=== PATIENT | male | born 1955 | race Caucasian/White ===

== ENCOUNTER → 2017-03-26 11:07 | Outpatient (CLI) | payer MEDICARE | END | disposition home or self-care (01) | LOC: D.CT 11:00 | DX: I10 Essential (primary) hypertension (principal); G40.101 Localization-related (focal) (partial) symptomatic epilepsy and epileptic syndromes with simple partial seizures, not intractable, with status epilepticus; F32.9 Major depressive disorder, single episode, unspecified; F10.10 Alcohol abuse, uncomplicated ==

== ENCOUNTER 2017-06-27 15:05 | Emergency (ER) | payer MEDICARE ==
[2017-06-27 15:28] LABS: APPEARANCE HAZY (CLEAR); COLOR STRAW (YELLOW)
[2017-06-27 15:29] LABS: BILIRUBIN NEGATIVE (NEGATIVE); GLUCOSE 50 mg/dL (NEGATIVE); KETONE NEGATIVE (NEGATIVE); NITRITE NEGATIVE (NEGATIVE); PROTEIN 1+ mg/dL (NEGATIVE); SPECIFIC GRAVITY 1.005 (1.005-1.020); UROBILINOGEN NORMAL (NORMAL)
[2017-06-27 15:31] LABS: BACTERIA FEW /hpf (NONE SEEN); RED CELLS - URINE 0-5 /hpf (0-5); WHITE CELLS - URINE 0-5 /hpf (0-5)
[2017-06-27 15:35] LABS: BASOPHILS 0.1 % (0-2); EOSINOPHILS 0.4 % (0-7); HEMATOCRIT 42.4 % (42.0-54.0); HEMOGLOBIN 14.9 g/dL (13.5-17.5); IMMATURE GRANULOCYTES 0.4 % (0-5); LYMPHOCYTES 15.1 % (15-50); MCH 33.9 pg (26.0-34.0); MCHC 35.1 g/dL (31.0-37.0); MCV 96.4 fL (80.0-100.0); MEAN PLATELET VOLUME 11.2 fL (7.4-10.4); MONOCYTES 6.3 % (2-11); NEUTROPHILS 77.7 % (40-80); PLATELET COUNT 123 10x3/uL (130-400); RDW 13.5 % (11.5-14.5); WBC 10.9 10x3/uL (4.8-10.8)
[2017-06-27 16:00] LABS: ALBUMIN 4.5 g/dL (3.4-5.0); ANION GAP 18.9 mmol/L (8-16); BILIRUBIN - TOTAL 0.62 mg/dL (0.2-1.3); CALCIUM 9.6 mg/dL (8.5-10.1); CARBON DIOXIDE 25.4 mmol/L (21.0-32.0); CREATININE - SERUM 1.3 mg/dL (0.6-1.3); POTASSIUM - SERUM 3.3 mmol/L (3.5-5.1); PROTEIN - SERUM 8.8 g/dL (6.4-8.2)
== END 2017-06-27 18:07 | disposition home or self-care (01) ==
LOC: D.ER 15:05
PROVIDERS: Emergency Medicine
DX: R10.13 Epigastric pain (principal); R11.10 Vomiting, unspecified; I10 Essential (primary) hypertension; G40.909 Epilepsy, unspecified, not intractable, without status epilepticus

== ENCOUNTER 2017-11-19 12:35 | Observation (INO) | payer MEDICARE ==
[~2017-11-19] VITALS: Ht 170.2 cm; Wt 72.6 kg
[2017-11-19] MEDS ORDERED: PRILOSEC2.5 MG PO (12:47)
[2017-11-19] MEDS ORDERED: KEPPRA500 MG PO (12:47)
[2017-11-19] MEDS ORDERED: NORVASC10 MG PO (12:48)
[2017-11-19 13:42] LABS: BASOPHILS 0.2 % (0-2); EOSINOPHILS 0.9 % (0-7); HEMATOCRIT 38.2 % (42.0-54.0); HEMOGLOBIN 13.6 g/dL (13.5-17.5); IMMATURE GRANULOCYTES 0.4 % (0-5); LYMPHOCYTES 10.8 % (15-50); MCH 32.3 pg (26.0-34.0); MCHC 35.6 g/dL (31.0-37.0); MCV 90.7 fL (80.0-100.0); MEAN PLATELET VOLUME 11.1 fL (7.4-10.4); MONOCYTES 7.2 % (2-11); NEUTROPHILS 80.5 % (40-80); PLATELET COUNT 111 10x3/uL (130-400); RBC 4.21 10x6/uL (4.20-6.10); RDW 14.2 % (11.5-14.5); WBC 8.5 10x3/uL (4.8-10.8)
[2017-11-19 14:43] LABS: ALBUMIN 4.1 g/dL (3.4-5.0); ALKALINE PHOSPHATASE 118 U/L (46-116); ALT (SGPT) 45 U/L (10-68); AMYLASE - SERUM 76 U/L (25-115); BILIRUBIN - TOTAL 0.56 mg/dL (0.2-1.3); C-REACTIVE PROTEIN 0.7 mg/dL (0.0-0.9); CALC OSMOLALITY 284 mosm/kg (275-300); CALCIUM 8.9 mg/dL (8.5-10.1); CARBON DIOXIDE 20.5 mmol/L (21.0-32.0); CHLORIDE - SERUM 105 mmol/L (98-107); CKMB 1.5 U/L (0.0-3.6); CREATINE KINASE 139 UL (21-232); CREATININE - SERUM 1.1 mg/dL (0.6-1.3); GLUCOSE 118 mg/dL (74-106); LIPASE 217 U/L (73-393); PROTEIN - SERUM 7.7 g/dL (6.4-8.2); SODIUM 142 mmol/L (136-145); UREA NITROGEN 14 mg/dL (7-18); eGFR NON AFRICAN AMERICAN 72 mL/min (90-120)
[2017-11-19 14:53] LABS: TROPONIN-I < 0.017 ng/mL (0.000-0.060)
[2017-11-19 17:11] VITALS: BP 171/072
[2017-11-19 22:28] VITALS: BP 164/96
[2017-11-19 22:35] VITALS: BP 166/98
[2017-11-20 00:49] VITALS: BP 161/91; BMI 25.1
[2017-11-20] MEDS ORDERED: PROZAC40 MG PO (01:04)
[2017-11-20 04:03] VITALS: BP 154/84
[2017-11-20 08:01] LABS: APPEARANCE CLEAR (CLEAR); BILIRUBIN NEGATIVE (NEGATIVE); COLOR STRAW (YELLOW); GLUCOSE NEGATIVE (NEGATIVE); KETONE NEGATIVE (NEGATIVE); NITRITE NEGATIVE (NEGATIVE); PROTEIN NEGATIVE (NEGATIVE); UROBILINOGEN NORMAL (NORMAL)
[2017-11-20 08:02] LABS: BACTERIA MANY /hpf (NONE SEEN); GRANULAR CAST RARE /lpf (NONE SEEN)
[2017-11-20 08:03] LABS: EPITHELIAL CELLS 0-5 /hpf (0-5); RED CELLS - URINE RARE /hpf (0-5); WHITE CELLS - URINE 0-5 /hpf (0-5)
[2017-11-20 08:33] VITALS: BP 178/86
[2017-11-20 11:00] VITALS: BMI 25.0
[2017-11-20 12:01] VITALS: BP 169/88
[2017-11-20 13:55] VITALS: Ht 170.2 cm; Wt 72.6 kg
[2017-11-20 16:08] VITALS: BP 170/95
[2017-11-20 20:00] VITALS: BP 158/98
[2017-11-21 04:00] VITALS: BP 167/63
[2017-11-21 06:51] LABS: BASOPHILS 0.2 % (0-2); EOSINOPHILS 3.1 % (0-7); HEMATOCRIT 36.3 % (42.0-54.0); HEMOGLOBIN 12.3 g/dL (13.5-17.5); IMMATURE GRANULOCYTES 0.2 % (0-5); LYMPHOCYTES 24.4 % (15-50); MCH 31.5 pg (26.0-34.0); MCHC 33.9 g/dL (31.0-37.0); MEAN PLATELET VOLUME 11.6 fL (7.4-10.4); MONOCYTES 10.6 % (2-11); NEUTROPHILS 61.5 % (40-80); PLATELET COUNT 103 10x3/uL (130-400); RDW 14.4 % (11.5-14.5)
[2017-11-21 06:57] LABS: MCV 93.1 fL (80.0-100.0); WBC 6.2 10x3/uL (4.8-10.8)
[2017-11-21 07:04] LABS: CALC OSMOLALITY 284 mosm/kg (275-300); CALCIUM 8.3 mg/dL (8.5-10.1); CARBON DIOXIDE 22.8 mmol/L (21.0-32.0); CHLORIDE - SERUM 110 mmol/L (98-107); GLUCOSE 86 mg/dL (74-106); POTASSIUM - SERUM 3.2 mmol/L (3.5-5.1); SODIUM 144 mmol/L (136-145); eGFR NON AFRICAN AMERICAN 80 mL/min (90-120)
[2017-11-21 07:05] LABS: UREA NITROGEN 9 mg/dL (7-18)
[2017-11-21 08:37] VITALS: BP 171/88
[2017-11-21 12:02] VITALS: BP 158/85
[2017-11-21 16:25] VITALS: BP 175/89
[2017-11-21 20:00] VITALS: BP 151/87
[2017-11-22] VITALS: BP 149/94
[2017-11-22 04:00] VITALS: BP 166/98
[2017-11-22 06:38] LABS: BASOPHILS 0.2 % (0-2); EOSINOPHILS 2.9 % (0-7); HEMATOCRIT 34.7 % (42.0-54.0); HEMOGLOBIN 11.9 g/dL (13.5-17.5); IMMATURE GRANULOCYTES 0.2 % (0-5); LYMPHOCYTES 25.7 % (15-50); MCHC 34.3 g/dL (31.0-37.0); MCV 93.3 fL (80.0-100.0); MEAN PLATELET VOLUME 11.5 fL (7.4-10.4); MONOCYTES 12.8 % (2-11); NEUTROPHILS 58.2 % (40-80); PLATELET COUNT 96 10x3/uL (130-400); RBC 3.72 10x6/uL (4.20-6.10); RDW 14.3 % (11.5-14.5); WBC 5.1 10x3/uL (4.8-10.8)
[2017-11-22 06:53] LABS: CALC OSMOLALITY 280 mosm/kg (275-300); CALCIUM 8.1 mg/dL (8.5-10.1); CARBON DIOXIDE 25.4 mmol/L (21.0-32.0); CHLORIDE - SERUM 109 mmol/L (98-107); CREATININE - SERUM 0.8 mg/dL (0.6-1.3); GLUCOSE 87 mg/dL (74-106); POTASSIUM - SERUM 3.4 mmol/L (3.5-5.1); SODIUM 143 mmol/L (136-145); eGFR NON AFRICAN AMERICAN > 90 mL/min (90-120)
[2017-11-22 07:04] LABS: UREA NITROGEN 5 mg/dL (7-18)
[2017-11-22 07:43] LABS: PLATELET ESTIMATE DECREASED
[2017-11-22 08:58] VITALS: BP 179/92
[2017-11-22] MEDS ORDERED: BENTYL 20 MG TA20 MG PO (15:29)
[2017-11-22] MEDS ORDERED: NICODERM C1 PATCH .1 TRANSDERM (15:30)
[2017-11-22] MEDS ORDERED: PROTONIX40 MG PO (15:33)
== END 2017-11-22 21:27 | disposition home or self-care (01) ==
LOC: D.ER 12:35 → OBSVTIME 17:46 → D.MS 17:46
PROVIDERS: Family Medicine; Internal Medicine Gastroenterology; Internal Medicine Nephrology
PROC: 0DD78ZX Extraction of Stomach, Pylorus, Via Natural or Artificial Opening Endoscopic, Diagnostic (ICD-10-PCS; 2017-11-22)
PROC: 0DD68ZX Extraction of Stomach, Via Natural or Artificial Opening Endoscopic, Diagnostic (ICD-10-PCS; principal; 2017-11-22 09:00)
DX: R59.1 Generalized enlarged lymph nodes (principal); F17.203 Nicotine dependence unspecified, with withdrawal; R19.00 Intra-abdominal and pelvic swelling, mass and lump, unspecified site; R11.2 Nausea with vomiting, unspecified; G40.909 Epilepsy, unspecified, not intractable, without status epilepticus; J44.9 Chronic obstructive pulmonary disease, unspecified; I10 Essential (primary) hypertension; E87.6 Hypokalemia; D69.6 Thrombocytopenia, unspecified; K21.0 Gastro-esophageal reflux disease with esophagitis; K29.70 Gastritis, unspecified, without bleeding

== ENCOUNTER → 2018-02-20 07:13 | Outpatient (CLI) | payer MEDICARE ==
[2017-11-20 13:55] VITALS: BMI 25.0
[~2018-02-20 07:13] MED LIST: BENTYL 20 MG TA20 MG PO; KEPPRA500 MG PO; NICODERM C1 PATCH .1 TRANSDERM; NORVASC10 MG PO; PRILOSEC2.5 MG PO; PROTONIX40 MG PO; PROZAC40 MG PO
== END | disposition home or self-care (01) ==
LOC: D.MRI 02-19 09:00
DX: M54.12 Radiculopathy, cervical region (principal)

== ENCOUNTER 2018-05-29 05:25 | Day surgery (SDC) | payer MEDICARE ==
[2018-05-27 12:03] LABS: BASOPHILS 0.6 % (0-2); EOSINOPHILS 2.4 % (0-7); HEMATOCRIT 38.1 % (42.0-54.0); HEMOGLOBIN 13.4 g/dL (13.5-17.5); IMMATURE GRANULOCYTES 0.2 % (0-5); LYMPHOCYTES 21.3 % (15-50); MCH 32.8 pg (26.0-34.0); MCHC 35.2 g/dL (31.0-37.0); MCV 93.2 fL (80.0-100.0); MEAN PLATELET VOLUME 11.6 fL (7.4-10.4); MONOCYTES 13.2 % (2-11); NEUTROPHILS 62.3 % (40-80); PLATELET COUNT 109 10x3/uL (130-400); RBC 4.09 10x6/uL (4.20-6.10); RDW 15.2 % (11.5-14.5); WBC 6.2 10x3/uL (4.8-10.8)
[~2018-05-29] VITALS: Ht 170.2 cm; Wt 72.7 kg
[~2018-05-29 05:25] MED LIST changes: +ATIVAN0.5 MG PO; +KEPPRA1000 MG PO; -KEPPRA500 MG PO; +OMEPRAZOLE20 M1 PO
[2018-05-29 06:09] VITALS: BP 188/74; BMI 25.1
[2018-05-29 11:44] VITALS: BP 144/71
[2018-05-29 11:56] VITALS: BP 144/71; Ht 170.2 cm; Wt 72.7 kg
[2018-05-29 20:53] VITALS: BP 129/78
[2018-05-30 01:11] VITALS: BP 134/74
[2018-05-30 04:51] VITALS: BP 141/83
[2018-05-30 09:35] VITALS: BP 148/73
[2018-05-30] MEDS ORDERED: ROBAXIN500 MG PO (10:19)
[2018-05-30] MEDS ORDERED: OXYCODONE-APAP1 TAB PO (10:33)
--- NOTE | 2018-07-01 10:06 | OP ---
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 SURGEON: Courtney Reis MD PROCEDURE: Anterior cervical discectomy and fusion with removal of osteophytes at C6-C7 with Zavation Z-Link anterior cervical plate and screws and separate PEEK interbody cage. REFERRING PHYSICIAN: Keisha Browne MD DESCRIPTION OF TECHNIQUE: After induction of general endotracheal anesthesia, the patient was positioned supine on the operating table. Neck was prepped and draped in usual sterile fashion. Fluoroscopic x-ray and [place] dissector localized the C6-C7 interspace. A transverse skin incision was carried out from the midline to the sternocleidomastoid muscle. The platysma was divided with Bovie cautery. Then, using blunt and sharp dissection with Metzenbaum scissors, I proceeded in avascular plane medial to the carotid sheath. The C6-C7 interspace was confirmed with fluoroscopic x-ray and spinal needle. The longus colli muscles were elevated from bodies of C6 and C7. A self-retaining retractor was placed deep to the longus colli muscles. Charlotte distracting pins were placed in the bodies of C6 and C7. The disc space was incised under distraction. Disc material was removed with pituitary rongeurs and curettes. The bony endplates were exposed with curettes as well. Posteriorly, the osteophytes were drilled with the Midas-Addison drill and microscope. The posterior longitudinal ligament was removed with Cloward rongeurs. Following this, the dura was decompressed well. Meticulous hemostasis was maintained throughout the wound. The wound was irrigated with copious amounts of Ancef irrigant solution. A PEEK interbody cage was placed in the disc space under distraction. Prior to this, it was filled with Christina bone stem cells. A separate anterior cervical plate and screws was placed in the disc space under distraction. I then placed across the C6-C7 interspace under distraction. Locking cams were tightened down over the screw heads. Good position of the hardware was confirmed with fluoroscopic x-ray. Meticulous hemostasis was maintained throughout the wound. The wound was then irrigated with copious amounts of Ancef irrigant solution. The platysma and subdermal layer were closed with interrupted 3-0 Vicryl suture. The skin was reapproximated with Steri-Strips and benzoin. A sterile dressing was applied to the wound. The patient was awakened in good condition and taken to recovery. All counts were reported as correct. Estimated blood loss was minimal. TRANSINT:[id number] Voice Confirmation ID: [id number] DOCUMENT ID: [id number] OPERATIVE REPORT [id number] GLENN MARTINEZ JOHN MD at 1006 CC: [id number] DICTATION DATE: 06/25/18 1419 FLIGHT DECK OFFICER: 06/25/18 1846 [facility] 05/30/[address] [address]
== END 2018-05-30 13:03 | disposition home or self-care (01) ==
LOC: D.PAN 05:25 → D.OPS 07:30 → D.MS 11:27 → D.PAN 05-30 13:03
PROVIDERS: Anesthesiology
DX: M25.78 Osteophyte, vertebrae (principal); M50.123 Cervical disc disorder at C6-C7 level with radiculopathy

== ENCOUNTER 2018-06-02 05:29 | Inpatient (IN) | payer MEDICARE ==
[2018-06-02] VITALS (66 sets, daily range): BP systolic 75–141; BP diastolic 39–73; BMI 26.8
[~2018-06-02] VITALS: Ht 170.2 cm; Wt 72.7 kg
[~2018-06-02 05:29] MED LIST changes: +OXYCODONE-APAP1 TAB PO; +ROBAXIN500 MG PO
[2018-06-02 06:32] LABS: APTT 31.3 SECONDS (22.8-39.4); INR 1.56 (0.85-1.17); PROTIME 18.1 SECONDS (11.6-15.0)
[2018-06-02 06:33] LABS: D-DIMER-QUANTITATIVE 1.37 ug/mLFEU (0.20-0.54)
[2018-06-02 06:36] LABS: HEMOGLOBIN 11.9 g/dL (13.5-17.5); MCH 32.4 pg (26.0-34.0); MCV 95.4 fL (80.0-100.0); MEAN PLATELET VOLUME 12.3 fL (7.4-10.4); PLATELET COUNT 89 10x3/uL (130-400); RBC 3.67 10x6/uL (4.20-6.10); RDW 15.3 % (11.5-14.5); WBC 15.5 10x3/uL (4.8-10.8)
[2018-06-02 06:41] LABS: ALBUMIN 2.8 g/dL (3.4-5.0); ALKALINE PHOSPHATASE 105 U/L (46-116); ALT (SGPT) 37 U/L (10-68); BILIRUBIN - TOTAL 1.35 mg/dL (0.2-1.3); CALC OSMOLALITY 275 mosm/kg (275-300); CALCIUM 8.1 mg/dL (8.5-10.1); CARBON DIOXIDE 14.5 mmol/L (21.0-32.0); CHLORIDE - SERUM 103 mmol/L (98-107); CKMB 0.7 U/L (0.0-3.6); CREATINE KINASE 48 UL (21-232); CREATININE - SERUM 1.5 mg/dL (0.6-1.3); GLUCOSE 121 mg/dL (74-106); PRO BNP 2438 pg/mL (0-125); PROTEIN - SERUM 6.5 g/dL (6.4-8.2); SODIUM 137 mmol/L (136-145); TROPONIN-I < 0.017 ng/mL (0.000-0.060); UREA NITROGEN 16 mg/dL (7-18); eGFR NON AFRICAN AMERICAN 50 mL/min (90-120)
[2018-06-02 06:41] LABS: APPEARANCE HAZY (CLEAR); BILIRUBIN NEGATIVE (NEGATIVE); COLOR YELLOW (YELLOW); GLUCOSE NEGATIVE (NEGATIVE); KETONE NEGATIVE (NEGATIVE); NITRITE POSITIVE (NEGATIVE); PROTEIN TRACE mg/dL (NEGATIVE); SPECIFIC GRAVITY 1.015 (1.005-1.020)
[2018-06-02 06:42] LABS: BACTERIA MANY /hpf (NONE SEEN); EPITHELIAL CELLS 0-5 /hpf (0-5); MUCUS <1+ /lpf (NONE SEEN); RED CELLS - URINE 0-5 /hpf (0-5)
[2018-06-02 06:43] LABS: POTASSIUM - SERUM 2.9 mmol/L (3.5-5.1)
[2018-06-02 08:12] LABS: ANISOCYTOSIS OCC; LYMPHOCYTES 3 % (15-50); MONOCYTES 3 % (2-11); NEUTROPHILS 85 % (40-80); PLATELET ESTIMATE DECREASED
[2018-06-03] VITALS (70 sets, daily range): BP systolic 102–145; BP diastolic 47–82; BMI 26.8
[2018-06-03 06:05] LABS: BASOPHILS 0 % (0-2); EOSINOPHILS 0.3 % (0-7); HEMATOCRIT 30.3 % (42.0-54.0); HEMOGLOBIN 10.3 g/dL (13.5-17.5); IMMATURE GRANULOCYTES 0.1 % (0-5); LYMPHOCYTES 5.9 % (15-50); MCH 31.9 pg (26.0-34.0); MCV 93.8 fL (80.0-100.0); MEAN PLATELET VOLUME 12.2 fL (7.4-10.4); MONOCYTES 8.6 % (2-11); NEUTROPHILS 85.1 % (40-80); PLATELET COUNT 69 10x3/uL (130-400); RBC 3.23 10x6/uL (4.20-6.10); RDW 15.4 % (11.5-14.5); WBC 8.7 10x3/uL (4.8-10.8)
[2018-06-03 06:30] LABS: % SATURATION 7 % (15-55); INR 1.35 (0.85-1.17); IRON 14 ug/dl (35-150); PROTIME 16.1 SECONDS (11.6-15.0); TOTAL IRON BIND CAPACITY 193 ug/dl (260-445); UNSAT IRON BIND CAPACITY 179 ug/dl (150-375)
[2018-06-03 06:44] LABS: MAGNESIUM - SERUM 1.6 mg/dL (1.8-2.4); PHOSPHOROUS 2.2 mg/dL (2.5-4.9)
[2018-06-03 06:47] LABS: ANION GAP 14.3 mmol/L (8-16); CARBON DIOXIDE 23.5 mmol/L (21.0-32.0); CREATININE - SERUM 1.1 mg/dL (0.6-1.3); POTASSIUM - SERUM 3.8 mmol/L (3.5-5.1)
[2018-06-04] VITALS (28 sets, daily range): BP systolic 107–146; BP diastolic 59–84
[2018-06-04 07:05] LABS: BASOPHILS 0 % (0-2); EOSINOPHILS 1.7 % (0-7); HEMATOCRIT 28.9 % (42.0-54.0); HEMOGLOBIN 9.8 g/dL (13.5-17.5); IMMATURE GRANULOCYTES 0.2 % (0-5); LYMPHOCYTES 7.9 % (15-50); MCH 31.9 pg (26.0-34.0); MCHC 33.9 g/dL (31.0-37.0); MCV 94.1 fL (80.0-100.0); MEAN PLATELET VOLUME 12.4 fL (7.4-10.4); MONOCYTES 7.8 % (2-11); NEUTROPHILS 82.4 % (40-80); PLATELET COUNT 72 10x3/uL (130-400); RBC 3.07 10x6/uL (4.20-6.10); RDW 15.7 % (11.5-14.5)
[2018-06-04 07:09] LABS: INR 1.38 (0.85-1.17); PROTIME 16.4 SECONDS (11.6-15.0); WBC 5.8 10x3/uL (4.8-10.8)
[2018-06-04 07:10] LABS: ANION GAP 13.5 mmol/L (8-16); CALCIUM 7.7 mg/dL (8.5-10.1); CARBON DIOXIDE 25.4 mmol/L (21.0-32.0); CREATININE - SERUM 1.1 mg/dL (0.6-1.3)
[2018-06-04 07:19] LABS: POTASSIUM - SERUM 2.9 mmol/L (3.5-5.1)
[2018-06-04 08:08] LABS: PLATELET ESTIMATE DECREASED
[2018-06-04 08:09] LABS: ROULEAUX OCC
[2018-06-04 10:20] LABS: ANA REFLEX - DIRECT Negative (Negative)
[2018-06-05] VITALS (40 sets, daily range): BP systolic 75–167; BP diastolic 44–94
[2018-06-05 06:13] LABS: ANION GAP 16.9 mmol/L (8-16); CALCIUM 8.2 mg/dL (8.5-10.1); CARBON DIOXIDE 25.8 mmol/L (21.0-32.0); CREATININE - SERUM 1.3 mg/dL (0.6-1.3); INR 1.33 (0.85-1.17); PROTIME 15.9 SECONDS (11.6-15.0)
[2018-06-05 06:21] LABS: POTASSIUM - SERUM 4.7 mmol/L (3.5-5.1)
[2018-06-05 07:38] LABS: HEMATOCRIT 31.9 % (42.0-54.0); HEMOGLOBIN 10.6 g/dL (13.5-17.5); MCH 31.6 pg (26.0-34.0); MCHC 33.2 g/dL (31.0-37.0); MCV 95.2 fL (80.0-100.0); MEAN PLATELET VOLUME 12.7 fL (7.4-10.4); PLATELET COUNT 103 10x3/uL (130-400); RBC 3.35 10x6/uL (4.20-6.10); RDW 15.9 % (11.5-14.5); WBC 6.7 10x3/uL (4.8-10.8)
[2018-06-05 08:34] LABS: ANISOCYTOSIS OCC; LYMPHOCYTES 11 % (15-50); MONOCYTES 8 % (2-11); NEUTROPHILS 81 % (40-80); PLATELET ESTIMATE DECREASED; ROULEAUX OCC
[2018-06-06] VITALS (31 sets, daily range): BP systolic 107–137; BP diastolic 58–89
[2018-06-06 03:11] LABS: MYCOPLASMA PNEUMO IGG 307 U/mL (0-99)
[2018-06-06 06:28] LABS: BASOPHILS 0 % (0-2); EOSINOPHILS 1.3 % (0-7); HEMOGLOBIN 9.4 g/dL (13.5-17.5); IMMATURE GRANULOCYTES 0.4 % (0-5); LYMPHOCYTES 6.8 % (15-50); MCHC 32.4 g/dL (31.0-37.0); MONOCYTES 8.6 % (2-11); NEUTROPHILS 82.9 % (40-80); PLATELET COUNT 88 10x3/uL (130-400); RBC 2.94 10x6/uL (4.20-6.10); WBC 8.2 10x3/uL (4.8-10.8)
[2018-06-06 06:30] LABS: INR 1.36 (0.85-1.17); PROTIME 16.2 SECONDS (11.6-15.0)
[2018-06-06 06:33] LABS: MCV 98.6 fL (80.0-100.0)
[2018-06-06 06:47] LABS: ANION GAP 12.1 mmol/L (8-16); CARBON DIOXIDE 25.7 mmol/L (21.0-32.0); CREATININE - SERUM 1.4 mg/dL (0.6-1.3)
[2018-06-06 06:51] LABS: POTASSIUM - SERUM 3.8 mmol/L (3.5-5.1)
--- NOTE | 2018-06-06 11:05 | MORECARE ---
CASE MANAGEMENT DISCHARGE SUMMARY PATIENT: GLENN MARTINEZ UNIT: [id number] ADM DATE: 06/02/18 AGE: 63 : 54 SEX: M ROOM/BED: D.2313 AUTHOR: DILEEP COPELAND PHYSICIAN: REFERRING PHYSICIAN: URVASHI LIRA MD DATE OF SERVICE: 06/06/18 Discharge Plan Patient Name: GLENN MARTINEZ [facility] : 1955 Planned Disposition: Anticipated Discharge Date: Discharge Date: Expected LOS: Initial Reviewer: [email or web address] Initial Review Date: 06/02/2018 Generated: 06/06/18 12:05 pm Comments DCP- Discharge Planning Updated by [email or web address]: Oksana Hernandes on 06/06/18 9:[address] CM attempted to do intake assessment for discharge planning. Patient is currently on ventilator and sedated. No family available at this time. CM will continue to follow and assist as needed with discharge planning / needs Patient Name: GLENN MARTINEZ Page [id number] at 1105 All edits/amendments must be made on the electronic document DICTATION DATE: 06/06/181103 STUDENT AMBASSADOR: ESAU 06/06/181103 RPT#: [id number] DC DATE: STATUS: ADM IN [facility] [address] [place] [address] END OF REPORT
[2018-06-07] VITALS (26 sets, daily range): BP systolic 117–175; BP diastolic 65–87; Ht 170.2 cm; Wt 72.7 kg
[2018-06-07 04:31] LABS: BASOPHILS 0.1 % (0-2); EOSINOPHILS 1.2 % (0-7); HEMATOCRIT 29.4 % (42.0-54.0); HEMOGLOBIN 9.3 g/dL (13.5-17.5); IMMATURE GRANULOCYTES 0.6 % (0-5); LYMPHOCYTES 8.3 % (15-50); MCH 31.4 pg (26.0-34.0); MCHC 31.6 g/dL (31.0-37.0); MCV 99.3 fL (80.0-100.0); MEAN PLATELET VOLUME 11.4 fL (7.4-10.4); MONOCYTES 7.4 % (2-11); NEUTROPHILS 82.4 % (40-80); PLATELET COUNT 83 10x3/uL (130-400); RBC 2.96 10x6/uL (4.20-6.10); RDW 15.9 % (11.5-14.5); WBC 8.9 10x3/uL (4.8-10.8)
[2018-06-07 04:44] LABS: INR 1.34 (0.85-1.17)
[2018-06-07 04:51] LABS: ANION GAP 12.5 mmol/L (8-16); CALCIUM 8.2 mg/dL (8.5-10.1); CARBON DIOXIDE 25.8 mmol/L (21.0-32.0); CREATININE - SERUM 1.5 mg/dL (0.6-1.3); MAGNESIUM - SERUM 2.6 mg/dL (1.8-2.4); PHOSPHOROUS 2.9 mg/dL (2.5-4.9); POTASSIUM - SERUM 4.3 mmol/L (3.5-5.1)
[2018-06-07 12:11] LABS: FOLATE (FOLIC ACID) - SERUM 3.7 ng/mL (>3.0)
[2018-06-08] VITALS (25 sets, daily range): BP systolic 96–169; BP diastolic 56–84
[2018-06-08 05:52] LABS: BASOPHILS 0.1 % (0-2); EOSINOPHILS 0.1 % (0-7); HEMATOCRIT 29.4 % (42.0-54.0); HEMOGLOBIN 8.9 g/dL (13.5-17.5); IMMATURE GRANULOCYTES 0.4 % (0-5); LYMPHOCYTES 8.7 % (15-50); MCH 31.6 pg (26.0-34.0); MCHC 30.3 g/dL (31.0-37.0); MEAN PLATELET VOLUME 12.4 fL (7.4-10.4); MONOCYTES 7.6 % (2-11); NEUTROPHILS 83.1 % (40-80); PLATELET COUNT 91 10x3/uL (130-400); RBC 2.82 10x6/uL (4.20-6.10); RDW 16.4 % (11.5-14.5); WBC 10.8 10x3/uL (4.8-10.8)
[2018-06-08 06:18] LABS: ALBUMIN 1.8 g/dL (3.4-5.0); ANION GAP 12.3 mmol/L (8-16); BILIRUBIN - TOTAL 1.18 mg/dL (0.2-1.3); CREATININE - SERUM 1.5 mg/dL (0.6-1.3); MAGNESIUM - SERUM 2.9 mg/dL (1.8-2.4); POTASSIUM - SERUM 4.3 mmol/L (3.5-5.1)
[2018-06-08 06:19] LABS: MCV 104.3 fL (80.0-100.0)
[2018-06-08 06:23] LABS: PHOSPHOROUS 4.4 mg/dL (2.5-4.9)
[2018-06-08 16:37] LABS: NEUT - BF 98 %
[2018-06-09] VITALS (24 sets, daily range): BP systolic 93–176; BP diastolic 54–100
[2018-06-09 04:27] LABS: HEMATOCRIT 27.2 % (42.0-54.0); HEMOGLOBIN 8.5 g/dL (13.5-17.5); MCH 31.6 pg (26.0-34.0); MCHC 31.3 g/dL (31.0-37.0); MEAN PLATELET VOLUME 11.9 fL (7.4-10.4); PLATELET COUNT 73 10x3/uL (130-400); RBC 2.69 10x6/uL (4.20-6.10); RDW 16.5 % (11.5-14.5)
[2018-06-09 04:28] LABS: MCV 101.1 fL (80.0-100.0); WBC 7.5 10x3/uL (4.8-10.8)
[2018-06-09 04:59] LABS: ALBUMIN 1.8 g/dL (3.4-5.0); BILIRUBIN - TOTAL 1.05 mg/dL (0.2-1.3); CALCIUM 7.6 mg/dL (8.5-10.1); CARBON DIOXIDE 21.8 mmol/L (21.0-32.0); CREATININE - SERUM 1.2 mg/dL (0.6-1.3); MAGNESIUM - SERUM 2.8 mg/dL (1.8-2.4); POTASSIUM - SERUM 4.3 mmol/L (3.5-5.1); PROTEIN - SERUM 5.2 g/dL (6.4-8.2); THYROID STIMULATING HORMONE 0.31 uIU/mL (0.36-3.74)
[2018-06-09 05:00] LABS: ANION GAP 14.5 mmol/L (8-16)
[2018-06-09 05:10] LABS: BASOPHILS 1 % (0-2); EOSINOPHILS 3 % (0-7); LYMPHOCYTES 12 % (15-50); MONOCYTES 6 % (2-11); NEUTROPHILS 78 % (40-80); PLATELET ESTIMATE DECREASED
--- NOTE | 2018-06-09 18:40 | MORECARE ---
CASE MANAGEMENT DISCHARGE SUMMARY PATIENT: GLENN MARTINEZ UNIT: [id number] ADM DATE: 06/02/18 AGE: 63 : 54 SEX: M ROOM/BED: D.2313 AUTHOR: DILEEP COPELAND PHYSICIAN: REFERRING PHYSICIAN: URVASHI LIRA MD DATE OF SERVICE: 06/09/18 Discharge Plan Patient Name: GLENN MARTINEZ Facility: [facility]:[place] : 1955 Planned Disposition: Anticipated Discharge Date: Discharge Date: Expected LOS: Initial Reviewer: [id number] Initial Review Date: 06/02/2018 Generated: 06/09/18 7:40 pm Comments DCP- Discharge Planning Updated by [email or web address]: Oksana Hernandes on 06/06/18 9:[address] CM attempted to do intake assessment for discharge planning. Patient is currently on ventilator and sedated. No family available at this time. CM will continue to follow and assist as needed with discharge planning / needs DCPIA - Discharge Planning Initial Assessment Updated by [email or web address]: Oksana Hernandes on 06/09/18 6:40 pm * Is the patient Alert and Oriented? No * How many steps to enter\exit or inside your home? * PCP HALIMA MOTT MD * Pharmacy [facility] / [facility] * Preadmission Environment Home Alone * ADLs Independent * Other Equipment neck brace * List name and contact numbers for known caregivers / representatives who currently or will assist patient after discharge: Fela Martinez - daughter- [phone] Star Esquivel son - [phone] * Verbal permission to speak to the caregivers and representatives has been obtained from the patient. N/A * Community resources currently utilized None * Additional services required to return to the preadmission environment? No * Can the patient safely return to the preadmission environment? Yes * Has this patient been hospitalized within the prior 30 days at any hospital? No Last DP export: 06/06/18 10:05 a Patient Name: GLENN MARTINEZ Page [id number] at 1840 All edits/amendments must be made on the electronic document DICTATION DATE: 06/09/181839 INVESTIGATIVE REPORTER: ESAU 06/09/181839 RPT#: [id number] DC DATE: STATUS: ADM IN [facility] [address] [place] [address] END OF REPORT
--- NOTE | 2018-06-09 18:47 | MORECARE ---
CASE MANAGEMENT DISCHARGE SUMMARY PATIENT: GLENN MARTINEZ UNIT: [id number] ADM DATE: 06/02/18 AGE: 63 : 54 SEX: M ROOM/BED: D.2313 AUTHOR: DINORAH,DOC PHYSICIAN: REFERRING PHYSICIAN: URVASHI LIRA MD DATE OF SERVICE: 06/09/18 Discharge Plan Patient Name: GLENN MARTINEZ Facility: [facility]:[place] : 1955 Planned Disposition: Anticipated Discharge Date: Discharge Date: Expected LOS: Initial Reviewer: [email or web address] Initial Review Date: 06/02/2018 Generated: 06/09/18 7:47 pm Comments DCP- Discharge Planning Updated by [id number]: Oksana Hernandes on 06/09/18 5:[address] Patient Name: GLENN MARTINEZ Admission Status: ER Accout number: [id number] Admission Date: 06-02-2018 : 1955 Admission Diagnosis:ACUTE ON CHRONIC SYSTOLIC (CONGESTIVE) HEART FAILURE Attending: URVASHI LIRA Current LOS: 7 Anticipated DC Date: Planned Disposition: Primary Insurance: [employer] CHOICE PPO MCR ADVANT Discharge Planning Comments: CM met with son Star at bedside. Patient is currently still on vent and sedated at this time. Star stated that patient lives alone but his sister Fela lives next door. He stated he was independent of ADLS prior to neck surg. Uncertain of disposition at this time may require rehab after long intensive care stay. CM will continue to follow and assist as needed with discharge planning / needs. Beveler: Oksana Hernandes DCP- Discharge Planning Updated by [email or web address]: Oksana Hernandes on 06/06/18 9:[address] CM attempted to do intake assessment for discharge planning. Patient is currently on ventilator and sedated. No family available at this time. CM will continue to follow and assist as needed with discharge planning / needs DCPIA - Discharge Planning Initial Assessment Updated by [email or web address]: Oksana Hernandes on 06/09/18 6:40 pm * Is the patient Alert and Oriented? No * How many steps to enter\exit or inside your home? * PCP HALIMA MOTT MD * Pharmacy [facility] / [facility] * Preadmission Environment Home Alone * ADLs Independent * Other Equipment neck brace * List name and contact numbers for known caregivers / representatives who currently or will assist patient after discharge: Fela Martinez - daughter- [phone] Star Esquivel son - [phone] * Verbal permission to speak to the caregivers and representatives has been obtained from the patient. N/A * Community resources currently utilized None * Additional services required to return to the preadmission environment? No * Can the patient safely return to the preadmission environment? Yes * Has this patient been hospitalized within the prior 30 days at any hospital? No Last DP export: 06/09/18 5:40 p Patient Name: GLENN MARTINEZ Page 88685 at 1847 All edits/amendments must be made on the electronic document DICTATION DATE: 06/09/181846 MANUFACTURING TECH: ESAU 06/09/181846 RPT#: [id number] DC DATE: STATUS: ADM IN [facility] [address] [place] [address] END OF REPORT
[2018-06-10] VITALS (23 sets, daily range): BP systolic 91–159; BP diastolic 56–99
[2018-06-10 06:54] LABS: ALBUMIN 1.5 g/dL (3.4-5.0); BILIRUBIN - TOTAL 0.74 mg/dL (0.2-1.3); C-REACTIVE PROTEIN 15.7 mg/dL (0.0-0.9); CALCIUM 8.2 mg/dL (8.5-10.1); CREATININE - SERUM 1.2 mg/dL (0.6-1.3); PROTEIN - SERUM 5.3 g/dL (6.4-8.2)
[2018-06-10 07:08] LABS: ANION GAP 14.2 mmol/L (8-16); POTASSIUM - SERUM 3.2 mmol/L (3.5-5.1)
[2018-06-10 07:40] LABS: BASOPHILS 0.4 % (0-2); EOSINOPHILS 3.2 % (0-7); HEMATOCRIT 24.8 % (42.0-54.0); HEMOGLOBIN 7.9 g/dL (13.5-17.5); IMMATURE GRANULOCYTES 0.4 % (0-5); LYMPHOCYTES 9.2 % (15-50); MCH 31.2 pg (26.0-34.0); MCHC 31.9 g/dL (31.0-37.0); MEAN PLATELET VOLUME 12.9 fL (7.4-10.4); MONOCYTES 7.6 % (2-11); NEUTROPHILS 79.2 % (40-80); PLATELET COUNT 81 10x3/uL (130-400); RBC 2.53 10x6/uL (4.20-6.10); RDW 16.3 % (11.5-14.5); WBC 5.7 10x3/uL (4.8-10.8)
[2018-06-10 20:07] LABS: ACID FAST SMEAR Negative (()); AFB SPECIMEN PROCESSING Concentration (())
[2018-06-11] VITALS (23 sets, daily range): BP systolic 90–179; BP diastolic 53–99
[2018-06-11 06:20] LABS: BASOPHILS 0.2 % (0-2); EOSINOPHILS 1.8 % (0-7); HEMATOCRIT 23.8 % (42.0-54.0); HEMOGLOBIN 7.6 g/dL (13.5-17.5); IMMATURE GRANULOCYTES 0.4 % (0-5); LYMPHOCYTES 10.6 % (15-50); MCH 31.3 pg (26.0-34.0); MCHC 31.9 g/dL (31.0-37.0); MCV 97.9 fL (80.0-100.0); MONOCYTES 8.1 % (2-11); NEUTROPHILS 78.9 % (40-80); PLATELET COUNT 77 10x3/uL (130-400); RBC 2.43 10x6/uL (4.20-6.10); RDW 16.3 % (11.5-14.5); WBC 5.6 10x3/uL (4.8-10.8)
[2018-06-11 06:41] LABS: PLATELET ESTIMATE DECREASED
[2018-06-11 07:02] LABS: ALBUMIN 1.5 g/dL (3.4-5.0); ANION GAP 15.2 mmol/L (8-16); BILIRUBIN - TOTAL 0.65 mg/dL (0.2-1.3); CALCIUM 8.1 mg/dL (8.5-10.1); CARBON DIOXIDE 20.2 mmol/L (21.0-32.0); CREATININE - SERUM 1.3 mg/dL (0.6-1.3); POTASSIUM - SERUM 3.4 mmol/L (3.5-5.1); PROTEIN - SERUM 5.1 g/dL (6.4-8.2)
[2018-06-11 09:18] LABS: HEP B CORE AB TOTAL Negative (Negative); HEPATITIS C ANTIBODY >11.0 S/CO RAT (0.0-0.9)
[2018-06-11 10:21] LABS: FUNGUS STAIN Final report (())
[2018-06-12] VITALS (24 sets, daily range): BP systolic 153–195; BP diastolic 81–123
[2018-06-12 05:37] LABS: BASOPHILS 0.1 % (0-2); EOSINOPHILS 0.1 % (0-7); IMMATURE GRANULOCYTES 0.6 % (0-5); LYMPHOCYTES 3.5 % (15-50); MCH 31.3 pg (26.0-34.0); MCHC 33.6 g/dL (31.0-37.0); MEAN PLATELET VOLUME 12.3 fL (7.4-10.4); NEUTROPHILS 89.7 % (40-80); RDW 17.7 % (11.5-14.5)
[2018-06-12 05:44] LABS: HEMATOCRIT 34.5 % (42.0-54.0); HEMOGLOBIN 11.6 g/dL (13.5-17.5); PLATELET COUNT 122 10x3/uL (130-400); RBC 3.71 10x6/uL (4.20-6.10); WBC 14.2 10x3/uL (4.8-10.8)
[2018-06-12 06:06] LABS: ALBUMIN 1.9 g/dL (3.4-5.0); ANION GAP 15.5 mmol/L (8-16); BILIRUBIN - TOTAL 1.43 mg/dL (0.2-1.3); CALCIUM 8.5 mg/dL (8.5-10.1); CARBON DIOXIDE 22.7 mmol/L (21.0-32.0); CREATININE - SERUM 1.2 mg/dL (0.6-1.3); POTASSIUM - SERUM 3.2 mmol/L (3.5-5.1); PROTEIN - SERUM 6.5 g/dL (6.4-8.2)
[2018-06-13] VITALS (21 sets, daily range): BP systolic 101–172; BP diastolic 59–112
[2018-06-13 03:58] LABS: BASOPHILS 0.1 % (0-2); EOSINOPHILS 0.8 % (0-7); HEMATOCRIT 33.3 % (42.0-54.0); IMMATURE GRANULOCYTES 0.7 % (0-5); LYMPHOCYTES 8.1 % (15-50); MCH 30.5 pg (26.0-34.0); MCV 92.2 fL (80.0-100.0); MEAN PLATELET VOLUME 12.3 fL (7.4-10.4); MONOCYTES 11.3 % (2-11); PLATELET COUNT 135 10x3/uL (130-400); RBC 3.61 10x6/uL (4.20-6.10)
[2018-06-13 04:02] LABS: WBC 7.7 10x3/uL (4.8-10.8)
[2018-06-13 04:21] LABS: ALBUMIN 1.8 g/dL (3.4-5.0); ANION GAP 13.4 mmol/L (8-16); BILIRUBIN - TOTAL 1.22 mg/dL (0.2-1.3); C-REACTIVE PROTEIN 17.9 mg/dL (0.0-0.9); CALCIUM 8.2 mg/dL (8.5-10.1); CREATININE - SERUM 1.1 mg/dL (0.6-1.3); POTASSIUM - SERUM 3.4 mmol/L (3.5-5.1); PROTEIN - SERUM 6.1 g/dL (6.4-8.2)
[2018-06-14] VITALS (23 sets, daily range): BP systolic 118–161; BP diastolic 74–97
[2018-06-14 04:08] LABS: BASOPHILS 0.2 % (0-2); EOSINOPHILS 2.3 % (0-7); HEMATOCRIT 32.1 % (42.0-54.0); HEMOGLOBIN 10.8 g/dL (13.5-17.5); IMMATURE GRANULOCYTES 0.6 % (0-5); LYMPHOCYTES 8.5 % (15-50); MCH 30.4 pg (26.0-34.0); MCHC 33.6 g/dL (31.0-37.0); MCV 90.4 fL (80.0-100.0); MEAN PLATELET VOLUME 11.8 fL (7.4-10.4); MONOCYTES 14.8 % (2-11); NEUTROPHILS 73.6 % (40-80); PLATELET COUNT 129 10x3/uL (130-400); RBC 3.55 10x6/uL (4.20-6.10); RDW 16.1 % (11.5-14.5); WBC 6.5 10x3/uL (4.8-10.8)
[2018-06-14 04:29] LABS: ALBUMIN 1.8 g/dL (3.4-5.0); ALKALINE PHOSPHATASE 99 U/L (46-116); ALT (SGPT) 43 U/L (10-68); BILIRUBIN - TOTAL 1.18 mg/dL (0.2-1.3); C-REACTIVE PROTEIN 9.7 mg/dL (0.0-0.9); CALC OSMOLALITY 283 mosm/kg (275-300); CALCIUM 8.2 mg/dL (8.5-10.1); CHLORIDE - SERUM 107 mmol/L (98-107); GLUCOSE 110 mg/dL (74-106); POTASSIUM - SERUM 3.2 mmol/L (3.5-5.1); PROTEIN - SERUM 5.9 g/dL (6.4-8.2); SODIUM 140 mmol/L (136-145); UREA NITROGEN 25 mg/dL (7-18); eGFR NON AFRICAN AMERICAN 80 mL/min (90-120)
[2018-06-15] VITALS (14 sets, daily range): BP systolic 92–154; BP diastolic 54–90
[2018-06-15 04:05] LABS: BASOPHILS 0.3 % (0-2); EOSINOPHILS 2.9 % (0-7); HEMATOCRIT 32.8 % (42.0-54.0); HEMOGLOBIN 11.1 g/dL (13.5-17.5); IMMATURE GRANULOCYTES 0.6 % (0-5); MCH 30.2 pg (26.0-34.0); MCHC 33.8 g/dL (31.0-37.0); MCV 89.4 fL (80.0-100.0); MONOCYTES 13.3 % (2-11); NEUTROPHILS 67.9 % (40-80); PLATELET COUNT 150 10x3/uL (130-400); RBC 3.67 10x6/uL (4.20-6.10); RDW 15.6 % (11.5-14.5); WBC 6.9 10x3/uL (4.8-10.8)
[2018-06-15 04:13] LABS: ALKALINE PHOSPHATASE 99 U/L (46-116); ALT (SGPT) 45 U/L (10-68); BILIRUBIN - TOTAL 1.11 mg/dL (0.2-1.3); C-REACTIVE PROTEIN 9.3 mg/dL (0.0-0.9); CALC OSMOLALITY 282 mosm/kg (275-300); CALCIUM 8.3 mg/dL (8.5-10.1); CARBON DIOXIDE 24.4 mmol/L (21.0-32.0); CHLORIDE - SERUM 104 mmol/L (98-107); GLUCOSE 111 mg/dL (74-106); POTASSIUM - SERUM 3.3 mmol/L (3.5-5.1); PROTEIN - SERUM 6.3 g/dL (6.4-8.2); SODIUM 139 mmol/L (136-145); UREA NITROGEN 24 mg/dL (7-18); eGFR NON AFRICAN AMERICAN 80 mL/min (90-120)
[2018-06-16] VITALS (15 sets, daily range): BP systolic 113–154; BP diastolic 8–97
[2018-06-16 13:18] LABS: FUNGUS CULTURE RESULT 1 Candida albicans (())
[2018-06-17 03:00] VITALS: BP 125/66
[2018-06-17 04:41] LABS: CALC OSMOLALITY 278 mosm/kg (275-300); CALCIUM 8.2 mg/dL (8.5-10.1); CARBON DIOXIDE 23.1 mmol/L (21.0-32.0); CHLORIDE - SERUM 105 mmol/L (98-107); CREATININE - SERUM 0.9 mg/dL (0.6-1.3); GLUCOSE 106 mg/dL (74-106); MAGNESIUM - SERUM 1.7 mg/dL (1.8-2.4); PHOSPHOROUS 3.2 mg/dL (2.5-4.9); POTASSIUM - SERUM 3.6 mmol/L (3.5-5.1); SODIUM 138 mmol/L (136-145); UREA NITROGEN 22 mg/dL (7-18); eGFR NON AFRICAN AMERICAN 90 mL/min (90-120)
[2018-06-17 07:00] VITALS: BP 127/76
[2018-06-17 11:10] VITALS: BP 131/64
[2018-06-17 15:00] VITALS: BP 132/75
[2018-06-17 19:00] VITALS: BP 147/85
[2018-06-17 23:00] VITALS: BP 132/86
[2018-06-18 03:00] VITALS: BP 113/70
[2018-06-18 04:58] LABS: CALC OSMOLALITY 278 mosm/kg (275-300); CALCIUM 8.4 mg/dL (8.5-10.1); CARBON DIOXIDE 22.1 mmol/L (21.0-32.0); CHLORIDE - SERUM 105 mmol/L (98-107); GLUCOSE 103 mg/dL (74-106); MAGNESIUM - SERUM 1.8 mg/dL (1.8-2.4); PHOSPHOROUS 3.4 mg/dL (2.5-4.9); POTASSIUM - SERUM 3.6 mmol/L (3.5-5.1); SODIUM 138 mmol/L (136-145); UREA NITROGEN 20 mg/dL (7-18); eGFR NON AFRICAN AMERICAN 80 mL/min (90-120)
[2018-06-18 07:00] VITALS: BP 143/107
[2018-06-18 15:00] VITALS: BP 138/80
--- NOTE | 2018-06-18 15:27 | MORECARE ---
CASE MANAGEMENT DISCHARGE SUMMARY PATIENT: GLENN MARTINEZ UNIT: [id number] ADM DATE: 06/02/18 AGE: 63 : 53 SEX: M ROOM/BED: D.2313 AUTHOR: DINORAH,DOC PHYSICIAN: REFERRING PHYSICIAN: URVASHI LIRA MD DATE OF SERVICE: 06/18/18 Discharge Plan Patient Name: GLENN MARTINEZ Facility: [facility]:[place] : 1955 Planned Disposition: Anticipated Discharge Date: Discharge Date: Expected LOS: Initial Reviewer: [email or web address] Initial Review Date: 06/02/2018 Generated: 06/18/18 4:27 pm Comments DCP- Discharge Planning Updated by [email or web address]: Oksana Hernandes on 06/18/18 2:[address] Awaiting OT eval and INP rehab evaluation. Rehab awaiting auth from [facility]. CM will continue to follow and assist with discharge planning / needs. DCP- Discharge Planning Updated by [email or web address]: Oksana Hernandes on 06/09/18 5:[address] Patient Name: GLENN MARTINEZ Admission Status: ER Accout number: [id number] Admission Date: 06-02-2018 : 1955 Admission Diagnosis:ACUTE ON CHRONIC SYSTOLIC (CONGESTIVE) HEART FAILURE Attending: URVASHI LIRA Current LOS: 7 Anticipated DC Date: Planned Disposition: Primary Insurance: [employer] CHOICE PPO MCR ADVANT Discharge Planning Comments: CM met with son Star at bedside. Patient is currently still on vent and sedated at this time. Star stated that patient lives alone but his sister Fela lives next door. He stated he was independent of ADLS prior to neck surg. Uncertain of disposition at this time may require rehab after long intensive care stay. CM will continue to follow and assist as needed with discharge planning / needs. Video Game Producer: Oksana Hernandes DCP- Discharge Planning Updated by [id number]: Oksana Hernandes on 06/06/18 9:[address] CM attempted to do intake assessment for discharge planning. Patient is currently on ventilator and sedated. No family available at this time. CM will continue to follow and assist as needed with discharge planning / needs DCPIA - Discharge Planning Initial Assessment Updated by [email or web address]: Oksana Hernandes on 06/09/18 6:40 pm * Is the patient Alert and Oriented? No * How many steps to enter\exit or inside your home? * PCP HALIMA MOTT MD * Pharmacy [facility] / [facility] * Preadmission Environment Home Alone * ADLs Independent * Other Equipment neck brace * List name and contact numbers for known caregivers / representatives who currently or will assist patient after discharge: Fela Martinez - daughter- [phone] Star Esquivel son - [phone] * Verbal permission to speak to the caregivers and representatives has been obtained from the patient. N/A * Community resources currently utilized None * Additional services required to return to the preadmission environment? No * Can the patient safely return to the preadmission environment? Yes * Has this patient been hospitalized within the prior 30 days at any hospital? No Last DP export: 06/09/18 5:47 p Patient Name: GLENN MARTINEZ Page [phone] at 1527 All edits/amendments must be made on the electronic document DICTATION DATE: 06/18/18 1526 DRAGLINE OPERATOR: ESAU 06/18/18 1526 RPT#: [id number] MD DATE: STATUS: ADM IN [facility] [address] [place] [address] END OF REPORT
[2018-06-18 20:00] VITALS: BP 113/71
[2018-06-18 23:00] VITALS: BP 105/61
[2018-06-19] VITALS (7 sets, daily range): BP systolic 109–132; BP diastolic 56–79
[2018-06-19 07:11] LABS: BASOPHILS 0.5 % (0-2); EOSINOPHILS 4.6 % (0-7); HEMATOCRIT 33.9 % (42.0-54.0); HEMOGLOBIN 11.2 g/dL (13.5-17.5); MCH 29.9 pg (26.0-34.0); MCV 90.6 fL (80.0-100.0); MEAN PLATELET VOLUME 11.8 fL (7.4-10.4); NEUTROPHILS 59.9 % (40-80); PLATELET COUNT 149 10x3/uL (130-400); RBC 3.74 10x6/uL (4.20-6.10); WBC 5.9 10x3/uL (4.8-10.8)
[2018-06-19 07:18] LABS: ALBUMIN 2.2 g/dL (3.4-5.0); ANION GAP 15.5 mmol/L (8-16); BILIRUBIN - TOTAL 0.77 mg/dL (0.2-1.3); CALCIUM 8.1 mg/dL (8.5-10.1); CARBON DIOXIDE 22.6 mmol/L (21.0-32.0); CREATININE - SERUM 1.1 mg/dL (0.6-1.3); MAGNESIUM - SERUM 1.7 mg/dL (1.8-2.4); PHOSPHOROUS 3.2 mg/dL (2.5-4.9); POTASSIUM - SERUM 4.1 mmol/L (3.5-5.1); PROTEIN - SERUM 6.4 g/dL (6.4-8.2)
--- NOTE | 2018-06-19 17:20 | MORECARE ---
CASE MANAGEMENT DISCHARGE SUMMARY PATIENT: GLENN MARTINEZ UNIT: [id number] ADM DATE: 06/02/18 AGE: 63 : 54 SEX: M ROOM/BED: D.9652 AUTHOR: DINORAH,DOC PHYSICIAN: REFERRING PHYSICIAN: URVASHI LIRA MD DATE OF SERVICE: 06/19/18 Discharge Plan Patient Name: GLENN MARTINEZ Facility: [facility]:[place] : 1955 Planned Disposition: Residential Facility Anticipated Discharge Date: Discharge Date: Expected LOS: Initial Reviewer: [id number] Initial Review Date: 06/02/2018 Generated: 06/19/18 6:19 pm Comments DCP- Discharge Planning Updated by [email or web address]: Abran Henning on 06/19/18 4:[address] Patient Name: GLENN MARTINEZ Admission Status: ER Accout number: [id number] Admission Date: 06-02-2018 : 1955 Admission Diagnosis:ACUTE ON CHRONIC SYSTOLIC (CONGESTIVE) HEART FAILURE Attending: URVASHI LIRA Current LOS: 17 Anticipated DC Date: Planned Disposition: Residential Facility Primary Insurance: [employer] PPO MCR ADVANT Planned External Provider: [facility] Discharge Planning Comments: CM RECEIVED CALL FROM [facility]PATIENT REHAB, PT'S INSURANCE DECLINED INPATIENT REHAB SERVICES. CM MET WITH PT, DISCUSSED DECLINATION BY INSURANCE WELL AVAILABILITY OF GROUP HOME REHAB, PROVIDERS AND LOCATIONS. [facility] IMPORTANT MESSAGE FROM MEDICARE PROVIDED AND DISCUSSED. PT HAS SEIZURE DISORDER WITH ONSET AFTER AGE 20, WILL REQUIRE LAKHWINDER SCREENING ASSESSMENT. PT'S DAUGHTER ARRIVED AND IS IN AGREEMENT WITH REHAB WHEN PT IS STABLE. PT WOULD LIKE FOR DAUGHTER TO HAVE POWER OF COATING LINE WORKER FOR MEDICAL PURPOSES. CM PROVIDED MEDICAL POWER OF COATING LINE WORKER PAPERWORK FOR COMPLETION, ADVISED TO SIGN IN PRESENCE OF NOTARY ONLY AND ERIKA ADVISED THAT NOTARY AVAILABLE DURING BUSINESS HOURS AT [place]. PT WILL NOTIFY CM WHEN THEY ARE READY FOR NOTARY SERVICES. CM TO COMPLETE AND SUBMIT LAKHWINDER SCREENING ASSESSMENT AND SEND REFERRAL TO [facility] SOON POSSIBLE. Organisation And Methods Analyst: Abran Henning DCP- Discharge Planning Updated by [email or web address]: Oksana Hernandes on 06/18/18 2:[address] Awaiting OT eval and INP rehab evaluation. Rehab awaiting auth from [facility]. CM will continue to follow and assist with discharge planning / needs. DCP- Discharge Planning Updated by [id number]: Oksana Hernandes on 06/09/18 5:[address] Patient Name: GLENN MARTINEZ Admission Status: ER Accout number: [id number] Admission Date: 06-02-2018 : 1955 Admission Diagnosis:ACUTE ON CHRONIC SYSTOLIC (CONGESTIVE) HEART FAILURE Attending: URVASHI LIRA Current LOS: 7 Anticipated DC Date: Planned Disposition: Primary Insurance: [employer] CHOICE PPO MCR [facility] Discharge Planning Comments: CM met with son Star at bedside. Patient is currently still on vent and sedated at this time. Star stated that patient lives alone but his sister Fela lives next door. He stated he was independent of ADLS prior to neck surg. Uncertain of disposition at this time may require rehab after long intensive care stay. CM will continue to follow and assist as needed with discharge planning / needs. Organisation And Methods Analyst: Oksana Hernandes DCP- Discharge Planning Updated by [email or web address]: Oksana Hernandes on 06/06/18 9:[address] CM attempted to do intake assessment for discharge planning. Patient is currently on ventilator and sedated. No family available at this time. CM will continue to follow and assist as needed with discharge planning / needs DCPIA - Discharge Planning Initial Assessment Updated by [email or web address]: Oksana Hernandes on 06/09/18 6:40 pm * Is the patient Alert and Oriented? No * How many steps to enter\exit or inside your home? * PCP HALIMA MOTT MD * Pharmacy [facility] / [facility] * Preadmission Environment Home Alone * ADLs Independent * Other Equipment neck brace * List name and contact numbers for known caregivers / representatives who currently or will assist patient after discharge: Fela Martinez - daughter- [phone] Star Esquivel son - [phone] * Verbal permission to speak to the caregivers and representatives has been obtained from the patient. N/A * Community resources currently utilized None * Additional services required to return to the preadmission environment? No * Can the patient safely return to the preadmission environment? Yes * Has this patient been hospitalized within the prior 30 days at any hospital? No External Providers External Provider: [facility] Next Contact Date: 06/20/2018 Service Request Date: Service Type: Resolution: Reviewer: Comments: Coverage Notice Reviewer: CHRIS Henning Notice Issued Date-Time: 06/19/2018 16:50 Notice Type: IM Discharge Notice Notice Delivered To: Patient Relationship to Patient: Strategic Manager Name: Delivery Method: HAND - Hand Delivered Manisha Days: Prior Verbal Notification: Recipient Understood Notice: Yes Recipient Signature: Yes Med Rec Note Co-signed by Attending: Coverage Notice Comment: Reviewer: CHRIS Henning Notice Issued Date-Time: 06/19/2018 16:50 Notice Type: Patient Choice Letter Notice Delivered To: Patient Relationship to Patient: Strategic Manager Name: Delivery Method: HAND - Hand Delivered Manisha Days: Prior Verbal Notification: Recipient Understood Notice: Yes Recipient Signature: Yes Med Rec Note Co-signed by Attending: Coverage Notice Comment: [facility] Last DP export: 06/18/18 2:27 p Patient Name: GLENN MARTINEZ Page [id number] at 1720 All edits/amendments must be made on the electronic document DICTATION DATE: 06/19/181718 GAMING WORKER: ESAU 06/19/181718 RPT#: [id number] DC DATE: STATUS: ADM IN [facility] [address] [place] [address] END OF REPORT
[2018-06-20] VITALS: BP 181/94
[2018-06-20 04:00] VITALS: BP 131/73
[2018-06-20 09:02] VITALS: BP 125/71
--- NOTE | 2018-06-20 10:19 | MORECARE ---
CASE MANAGEMENT DISCHARGE SUMMARY PATIENT: GLENN MARTINEZ UNIT: [id number] ADM DATE: 06/02/18 AGE: 63 : 53 SEX: M ROOM/BED: D.8632 AUTHOR: DINORAH,DOC PHYSICIAN: REFERRING PHYSICIAN: URVASHI LIRA MD DATE OF SERVICE: 06/20/18 Discharge Plan Patient Name: GLENN MARTINEZ Facility: [facility]:[place] : 1955 Planned Disposition: Senior Living Facility Anticipated Discharge Date: Discharge Date: Expected LOS: Initial Reviewer: [email or web address] Initial Review Date: 06/02/2018 Generated: 06/20/18 11:19 am Comments DCP- Discharge Planning Updated by [email or web address]: Abran Henning on 06/19/18 4:[address] Patient Name: GLENN MARTINEZ Admission Status: ER Accout number: [id number] Admission Date: 06-02-2018 : 1955 Admission Diagnosis:ACUTE ON CHRONIC SYSTOLIC (CONGESTIVE) HEART FAILURE Attending: URVASHI LIRA Current LOS: 17 Anticipated DC Date: Planned Disposition: Senior Living Facility Primary Insurance: [employer] PPO MCR ADVANT Planned External Provider: [facility] Discharge Planning Comments: CM RECEIVED CALL FROM [facility] OF INPATIENT REHAB, PT'S INSURANCE DECLINED INPATIENT REHAB SERVICES. CM MET WITH PT, DISCUSSED DECLINATION BY INSURANCE WELL AVAILABILITY OF LONG TERM REHAB, PROVIDERS AND LOCATIONS. [facility] IMPORTANT MESSAGE FROM MEDICARE PROVIDED AND DISCUSSED. PT HAS SEIZURE DISORDER WITH ONSET AFTER AGE 20, WILL REQUIRE LAKHWINDER SCREENING ASSESSMENT. PT'S DAUGHTER ARRIVED AND IS IN AGREEMENT WITH REHAB WHEN PT IS STABLE. PT WOULD LIKE FOR DAUGHTER TO HAVE POWER OF FIREMAN FOR MEDICAL PURPOSES. CM PROVIDED MEDICAL POWER OF FIREMAN PAPERWORK FOR COMPLETION, ADVISED TO SIGN IN PRESENCE OF NOTARY ONLY AND ERIKA ADVISED THAT NOTARY AVAILABLE DURING BUSINESS HOURS AT [place]. PT WILL NOTIFY CM WHEN THEY ARE READY FOR NOTARY SERVICES. CM TO COMPLETE AND SUBMIT LAKHWINDER SCREENING ASSESSMENT AND SEND REFERRAL TO [facility] SOON POSSIBLE. Hand Mounter: Abran Henning DCP- Discharge Planning Updated by [id number]: Oksana Hernandes on 06/18/18 2:[address] Awaiting OT eval and INP rehab evaluation. Rehab awaiting auth from [facility]. CM will continue to follow and assist with discharge planning / needs. DCP- Discharge Planning Updated by [email or web address]: Oksana Hernandes on 06/09/18 5:[address] Patient Name: GLENN MARTINEZ Admission Status: ER Accout number: [id number] Admission Date: 06-02-2018 : 1955 Admission Diagnosis:ACUTE ON CHRONIC SYSTOLIC (CONGESTIVE) HEART FAILURE Attending: URVASHI LIRA Current LOS: 7 Anticipated DC Date: Planned Disposition: Primary Insurance: [employer] CHOICE PPO [facility]CR [facility] Discharge Planning Comments: CM met with son Star at bedside. Patient is currently still on vent and sedated at this time. Star stated that patient lives alone but his sister Fela lives next door. He stated he was independent of ADLS prior to neck surg. Uncertain of disposition at this time may require rehab after long intensive care stay. CM will continue to follow and assist as needed with discharge planning / needs. Hand Mounter: Oksana Hernandes DCP- Discharge Planning Updated by [email or web address]: Oksana Hernandes on 06/06/18 9:[address] CM attempted to do intake assessment for discharge planning. Patient is currently on ventilator and sedated. No family available at this time. CM will continue to follow and assist as needed with discharge planning / needs DCPIA - Discharge Planning Initial Assessment Updated by [email or web address]: Oksana Hernandes on 06/09/18 6:40 pm * Is the patient Alert and Oriented? No * How many steps to enter\exit or inside your home? * PCP HALIMA MOTT MD * Pharmacy [facility] / [facility] * Preadmission Environment Home Alone * ADLs Independent * Other Equipment neck brace * List name and contact numbers for known caregivers / representatives who currently or will assist patient after discharge: Fela Martinez - daughter- [phone] Star Esquivel son - [phone] * Verbal permission to speak to the caregivers and representatives has been obtained from the patient. N/A * Community resources currently utilized None * Additional services required to return to the preadmission environment? No * Can the patient safely return to the preadmission environment? Yes * Has this patient been hospitalized within the prior 30 days at any hospital? No External Providers External Provider: [facility] Next Contact Date: 06/20/2018 Service Request Date: Service Type: Resolution: Reviewer: Comments: Coverage Notice Reviewer: [email or web address] Sierra Henning Notice Issued Date-Time: 06/19/2018 16:50 Notice Type: IM Discharge Notice Notice Delivered To: Patient Relationship to Patient: Operator Bearer Systems Name: Delivery Method: HAND - Hand Delivered Manisha Days: Prior Verbal Notification: Recipient Understood Notice: Yes Recipient Signature: Yes Med Rec Note Co-signed by Attending: Coverage Notice Comment: Reviewer: [email or web address] Sierra Henning Notice Issued Date-Time: 06/19/2018 16:50 Notice Type: Patient Choice Letter Notice Delivered To: Patient Relationship to Patient: Operator Bearer Systems Name: Delivery Method: HAND - Hand Delivered Manisha Days: Prior Verbal Notification: Recipient Understood Notice: Yes Recipient Signature: Yes Med Rec Note Co-signed by Attending: Coverage Notice Comment: [facility] Last DP export: 06/19/18 4:20 p Patient Name: GLENN MARTINEZ Page [id number] at 1019 All edits/amendments must be made on the electronic document DICTATION DATE: 06/20/18 1018 PRESS BRAKE OPERATOR: ESAU 06/20/18 1018 RPT#: [id number] DC DATE: STATUS: ADM IN [facility] [address] [place] [address] END OF REPORT
--- NOTE | 2018-06-20 10:27 | MORECARE ---
CASE MANAGEMENT DISCHARGE SUMMARY PATIENT: GLENN MARTINEZ UNIT: [id number] ADM DATE: 06/02/18 AGE: 63 : 53 SEX: M ROOM/BED: D.[facility] AUTHOR: DINORAH,DOC PHYSICIAN: REFERRING PHYSICIAN: URVASHI LIRA MD DATE OF SERVICE: 06/20/18 Discharge Plan Patient Name: GLENN MARTINEZ Facility: [facility]:[place] : 1955 Planned Disposition: Long Term Facility Anticipated Discharge Date: Discharge Date: Expected LOS: Initial Reviewer: [id number] Initial Review Date: 06/02/2018 Generated: 06/20/18 11:27 am Comments DCP- Discharge Planning Updated by [id number]: Abran Henning on 06/20/18 9:[address] Patient Name: GLENN MARTINEZ Encounter No: [id number] : 1955 Primary Insurance: [employer] PPO [facility] ADVANT Anticipated DC Date: Planned Disposition: Long Term Facility External Planned Provider: [facility], MEDICARE REHAB BED DCP follow-up note: CM COMPLETED LAKHWINDER, RECEIVED NEEDED SIGNATURES. FAXED COMPLETED LAKHWINDER SCREENING WITH SUPPORTING MEDICAL DOCUMENTS TO [facility] AT [phone]. CM CALLED [facility], , ASKED FOR ASSESSMENT FOR REHAB ADMISSION. CM FAXED REFERRAL TO [facility] VIA [facility] AT [phone]. CM WAITING ADMISSION DETERMINATION FROM [facility], 'S INSURANCE AUTHORIZATION FOR REHAB SERVICES AT [facility] AND [facility] SCREENING COMPLETION AND APPROVAL TO ENTER CARE HOME FOR REHAB. Abran Henning CASE LUCILA DCP- Discharge Planning Updated by [id number]: Abran Henning on 06/19/18 4:[address] Patient Name: GLENN MARTINEZ Admission Status: ER Accout number: [id number] Admission Date: 06-02-2018 : 1955 Admission Diagnosis:ACUTE ON CHRONIC SYSTOLIC (CONGESTIVE) HEART FAILURE Attending: URVASHI LIRA Current LOS: 17 Anticipated DC Date: Planned Disposition: Long Term Facility Primary Insurance: [employer] O MCR ADVANT Planned External Provider: [facility], MEDICARE REHAB BED Discharge Planning Comments: CM RECEIVED CALL FROM [facility] OF INPATIENT REHAB, PT'S INSURANCE DECLINED INPATIENT REHAB SERVICES. CM MET WITH PT, DISCUSSED DECLINATION BY INSURANCE WELL AVAILABILITY OF CARE HOME REHAB, PROVIDERS AND LOCATIONS. PT WOULD LIKE REFERRED TO [facility] SIGNED. IMPORTANT MESSAGE FROM MEDICARE PROVIDED AND DISCUSSED. PT HAS SEIZURE DISORDER WITH ONSET AFTER AGE 20, WILL REQUIRE LAKHWINDER SCREENING ASSESSMENT. PT'S DAUGHTER ARRIVED AND IS IN AGREEMENT WITH REHAB WHEN PT IS STABLE. PT WOULD LIKE FOR DAUGHTER TO HAVE POWER OF TEST SPECIALIST FOR MEDICAL PURPOSES. CM PROVIDED MEDICAL POWER OF TEST SPECIALIST PAPERWORK FOR COMPLETION, ADVISED TO SIGN IN PRESENCE OF NOTARY ONLY AND ERIKA ADVISED THAT NOTARY AVAILABLE DURING BUSINESS HOURS AT [place]. PT WILL NOTIFY CM WHEN THEY ARE READY FOR NOTARY SERVICES. CM TO COMPLETE AND SUBMIT [facility]INDER SCREENING ASSESSMENT AND SEND REFERRAL TO [facility] AND REHAB SOON POSSIBLE. Brokerage Clerk: Abran Henning DCP- Discharge Planning Updated by [id number]: Oksana Hernandes on 06/18/18 2:[address] Awaiting OT eval and INP rehab evaluation. Rehab awaiting auth from [facility]. CM will continue to follow and assist with discharge planning / needs. DCP- Discharge Planning Updated by [id number]: Oksana Hernandes on 06/09/18 5:[address] Patient Name: GLENN MARTINEZ Admission Status: ER Accout number: [id number] Admission Date: 06-02-2018 : 1955 Admission Diagnosis:ACUTE ON CHRONIC SYSTOLIC (CONGESTIVE) HEART FAILURE Attending: URVASHI LIRA Current LOS: 7 Anticipated DC Date: Planned Disposition: Primary Insurance: [employer] CHOICE PPO MCR ADVANT Discharge Planning Comments: CM met with son Star at bedside. Patient is currently still on vent and sedated at this time. Star stated that patient lives alone but his sister Fela lives next door. He stated he was independent of ADLS prior to neck surg. Uncertain of disposition at this time may require rehab after long intensive care stay. CM will continue to follow and assist as needed with discharge planning / needs. Brokerage Clerk: Oksana Hernandes DCP- Discharge Planning Updated by [id number]: Oksana Hernandes on 06/06/18 9:[address] CM attempted to do intake assessment for discharge planning. Patient is currently on ventilator and sedated. No family available at this time. CM will continue to follow and assist as needed with discharge planning / needs DCPIA - Discharge Planning Initial Assessment Updated by [id number]: Oksana Hernandes on 06/09/18 6:40 pm * Is the patient Alert and Oriented? No * How many steps to enter\exit or inside your home? * PCP HALIMA MOTT MD * Pharmacy [facility] * Preadmission Environment Home Alone * ADLs Independent * Other Equipment neck brace * List name and contact numbers for known caregivers / representatives who currently or will assist patient after discharge: Fela Martinez - daughter- [phone] Star Esquivel son - [phone] * Verbal permission to speak to the caregivers and representatives has been obtained from the patient. N/A * Community resources currently utilized None * Additional services required to return to the preadmission environment? No * Can the patient safely return to the preadmission environment? Yes * Has this patient been hospitalized within the prior 30 days at any hospital? No Coverage Notice Reviewer: [email or web address] Henning Notice Issued Date-Time: 06/19/2018 16:50 Notice Type: IM Discharge Notice Notice Delivered To: Patient Relationship to Patient: Rubber Off Name: Delivery Method: HAND - Hand Delivered Manisha Days: Prior Verbal Notification: Recipient Understood Notice: Yes Recipient Signature: Yes Med Rec Note Co-signed by Attending: Coverage Notice Comment: Reviewer: [id number] Henning Notice Issued Date-Time: 06/19/2018 16:50 Notice Type: Patient Choice Letter Notice Delivered To: Patient Relationship to Patient: Rubber Off Name: Delivery Method: HAND - Hand Delivered Manisha Days: Prior Verbal Notification: Recipient Understood Notice: Yes Recipient Signature: Yes Med Rec Note Co-signed by Attending: Coverage Notice Comment: [facility] Last DP export: 06/20/18 9:19 am Patient Name: GLENN MARTINEZ Page 07505 at 1027 All edits/amendments must be made on the electronic document DICTATION DATE: 06/20/18 1027 OIL AND GAS RECRUITER: ESAU 06/20/18 1027 RPT#: [id number] DC DATE: STATUS: ADM IN [facility] [address] [place] [address] END OF REPORT
[2018-06-20 13:48] VITALS: BP 131/76
--- NOTE | 2018-06-20 15:59 | MORECARE ---
CASE MANAGEMENT DISCHARGE SUMMARY PATIENT: GLENN MARTINEZ UNIT: [id number] ADM DATE: 06/02/18 AGE: 63 : 53 SEX: M ROOM/BED: D.[facility] AUTHOR: DINORAH,DOC PHYSICIAN: REFERRING PHYSICIAN: URVASHI LIRA MD DATE OF SERVICE: 06/20/18 Discharge Plan Patient Name: GLENN MARTINEZ Facility: [facility]:[place] : 1955 Planned Disposition: [facility] Facility Anticipated Discharge Date: Discharge Date: Expected LOS: Initial Reviewer: [id number] Initial Review Date: 06/02/2018 Generated: 06/20/18 4:59 pm Comments DCP- Discharge Planning Updated by [id number]: Abran Henning on 06/20/18 9:[address] Patient Name: GLENN MARTINEZ Encounter No: [id number] : 1955 Primary Insurance: [employer] PPO [facility] ADVANT Anticipated DC Date: Planned Disposition: [facility] Facility External Planned Provider: [facility], MEDICARE REHAB BED DCP follow-up note: CM COMPLETED LAKHWINDER, RECEIVED NEEDED SIGNATURES. FAXED COMPLETED LAKHWINDER SCREENING WITH SUPPORTING MEDICAL DOCUMENTS TO [facility] AT [phone]. CM CALLED [facility] FOR [facility], , ASKED FOR ASSESSMENT FOR REHAB ADMISSION. CM FAXED REFERRAL TO [facility] VIA [facility] AT [phone]. CM WAITING ADMISSION DETERMINATION FROM [facility], 'S INSURANCE AUTHORIZATION FOR REHAB SERVICES AT [facility] AND [facility] SCREENING COMPLETION AND APPROVAL TO ENTER SNF FOR REHAB. KAT Molina DCP- Discharge Planning Updated by [id number]: Abran Henning on 06/19/18 4:[address] Patient Name: GLENN MARTINEZ Admission Status: ER Accout number: [id number] Admission Date: 06-02-2018 : 1955 Admission Diagnosis:ACUTE ON CHRONIC SYSTOLIC (CONGESTIVE) HEART FAILURE Attending: URVASHI LIRA Current LOS: 17 Anticipated DC Date: Planned Disposition: [facility] Facility Primary Insurance: [employer] O MCR ADVANT Planned External Provider: [facility], MEDICARE REHAB BED Discharge Planning Comments: CM RECEIVED CALL FROM [facility] OF INPATIENT REHAB, PT'S INSURANCE DECLINED INPATIENT REHAB SERVICES. CM MET WITH PT, DISCUSSED DECLINATION BY INSURANCE WELL AVAILABILITY OF SNF REHAB, PROVIDERS AND LOCATIONS. PT WOULD LIKE REFERRED TO [facility] SIGNED. IMPORTANT MESSAGE FROM MEDICARE PROVIDED AND DISCUSSED. PT HAS SEIZURE DISORDER WITH ONSET AFTER AGE 20, WILL REQUIRE LAKHWINDER SCREENING ASSESSMENT. PT'S DAUGHTER ARRIVED AND IS IN AGREEMENT WITH REHAB WHEN PT IS STABLE. PT WOULD LIKE FOR DAUGHTER TO HAVE POWER OF MOBILE PARAMEDICAL EXAMINER FOR MEDICAL PURPOSES. CM PROVIDED MEDICAL POWER OF MOBILE PARAMEDICAL EXAMINER PAPERWORK FOR COMPLETION, ADVISED TO SIGN IN PRESENCE OF NOTARY ONLY AND ERIKA ADVISED THAT NOTARY AVAILABLE DURING BUSINESS HOURS AT [place]. PT WILL NOTIFY CM WHEN THEY ARE READY FOR NOTARY SERVICES. CM TO COMPLETE AND SUBMIT LAKHWINDER SCREENING ASSESSMENT AND SEND REFERRAL TO [facility] AND REHAB SOON POSSIBLE. News Content Specialist: Abran Henning DCP- Discharge Planning Updated by [id number]: Oksana Hernandes on 06/18/18 2:[address] Awaiting OT eval and INP rehab evaluation. Rehab awaiting auth from [facility]. CM will continue to follow and assist with discharge planning / needs. DCP- Discharge Planning Updated by [id number]: Oksana Hernandes on 06/09/18 5:[address] Patient Name: GLENN MARTINEZ Admission Status: ER Accout number: [id number] Admission Date: 06-02-2018 : 1955 Admission Diagnosis:ACUTE ON CHRONIC SYSTOLIC (CONGESTIVE) HEART FAILURE Attending: URVASHI LIRA Current LOS: 7 Anticipated DC Date: Planned Disposition: Primary Insurance: [employer] CHO[employer] PPO MCR ADVANT Discharge Planning Comments: CM met with son Star at bedside. Patient is currently still on vent and sedated at this time. Star stated that patient lives alone but his sister Fela lives next door. He stated he was independent of ADLS prior to neck surg. Uncertain of disposition at this time may require rehab after long intensive care stay. CM will continue to follow and assist as needed with discharge planning / needs. News Content Specialist: Oskana Hernandes DCP- Discharge Planning Updated by [id number]: Oksana Hernandes on 06/06/18 9:[address] CM attempted to do intake assessment for discharge planning. Patient is currently on ventilator and sedated. No family available at this time. CM will continue to follow and assist as needed with discharge planning / needs DCPIA - Discharge Planning Initial Assessment Updated by [id number]: Oksana Hernandes on 06/09/18 6:40 pm * Is the patient Alert and Oriented? No * How many steps to enter\exit or inside your home? * PCP HALIMA MOTT MD * Pharmacy [facility] * Preadmission Environment Home Alone * ADLs Independent * Other Equipment neck brace * List name and contact numbers for known caregivers / representatives who currently or will assist patient after discharge: Fela Martinez - daughter- [phone] Star Esquivel son - [phone] * Verbal permission to speak to the caregivers and representatives has been obtained from the patient. N/A * Community resources currently utilized None * Additional services required to return to the preadmission environment? No * Can the patient safely return to the preadmission environment? Yes * Has this patient been hospitalized within the prior 30 days at any hospital? No External Providers External Provider: [facility] Next Contact Date: 06/20/2018 Service Request Date: Service Type: Resolution: Reviewer: Comments: Coverage Notice Reviewer: [id number] Sierra Henning Notice Issued Date-Time: 06/19/2018 16:50 Notice Type: IM Discharge Notice Notice Delivered To: Patient Relationship to Patient: Networking Engineer Name: Delivery Method: HAND - Hand Delivered Manisha Days: Prior Verbal Notification: Recipient Understood Notice: Yes Recipient Signature: Yes Med Rec Note Co-signed by Attending: Coverage Notice Comment: Reviewer: [id number] Sierra Henning Notice Issued Date-Time: 06/19/2018 16:50 Notice Type: Patient Choice Letter Notice Delivered To: Patient Relationship to Patient: Networking Engineer Name: Delivery Method: HAND - Hand Delivered Manisha Days: Prior Verbal Notification: Recipient Understood Notice: Yes Recipient Signature: Yes Med Rec Note Co-signed by Attending: Coverage Notice Comment: [facility] Last DP export: 06/20/18 9:27 am Patient Name: GLENN MARTINEZ Page 13359 at 1559 All edits/amendments must be made on the electronic document DICTATION DATE: 06/20/181557 HANGER OFF: ESAU 06/20/181557 RPT#: [id number] DC DATE: STATUS: ADM IN [facility] [address] [place] [address] END OF REPORT
--- NOTE | 2018-06-20 16:11 | MORECARE ---
CASE MANAGEMENT DISCHARGE SUMMARY PATIENT: GLENN MARTINEZ UNIT: [id number] ADM DATE: 06/02/18 AGE: 63 : 53 SEX: M ROOM/BED: D.2 AUTHOR: DINORAH,DOC PHYSICIAN: REFERRING PHYSICIAN: URVASHI LIRA MD DATE OF SERVICE: 06/20/18 Discharge Plan Patient Name: GLENN MRATINEZ Facility: [facility]:[place] : 1955 Planned Disposition: [facility] Facility Anticipated Discharge Date: Discharge Date: Expected LOS: Initial Reviewer: [id number] Initial Review Date: 06/02/2018 Generated: 06/20/18 5:11 pm Comments DCP- Discharge Planning Updated by [id number]: Abran Henning on 06/20/18 3:[address] Patient Name: GLENN MARTINEZ Encounter No: [id number] : 1955 Primary Insurance: [employer] CHO[employer] PPO MCR ADVANT Anticipated DC Date: Planned Disposition: [facility] Facility External Planned Provider: [facility], MEDICARE REHAB [facility] DCP follow-up note: CM RECEIVED MESSAGE FROM [facility], THEY ARE OUT OF NETWORK WITH PT'S MANAGED MEDICARE INSURANCE. CM MET WITH PT IN ROOM, PROVIDED [facility]AIL CHOICE LIST. PT WOULD LIKE REFERRALS TO [facility], [facility] AND [facility], CHOICE SIGNED. CM NOTIFIED [facility] WHO WILL FORWARD REFERRAL TO [facility]. CM FAXED REHAB REFERRAL TO [facility] AT [phone]. CM WAITING ADMISSION DETERMINATION FROM [facility] AND [facility], PT'S INSURANCE AUTHORIZATION FOR REHAB SERVICES AT [facility] AND [facility] SCREENING COMPLETION AND APPROVAL TO ENTER JAIL FOR REHAB. Abran Henning, CASE MANAGEMENT DCP- Discharge Planning Updated by [id number]: Abran Henning on 06/20/18 9:[address] Patient Name: GLENN MARTINEZ Encounter No: [id number] : 1955 Primary Insurance: [employer] CHOICE PPO MCR ADVANT Anticipated DC Date: Planned Disposition: [facility] Facility External Planned Provider: [facility], MEDICARE REHAB BED DCP follow-up note: CM COMPLETED LAKHWINDER, RECEIVED NEEDED SIGNATURES. FAXED COMPLETED LAKHWINDER SCREENING WITH SUPPORTING MEDICAL DOCUMENTS TO [facility] AT [phone]. CM CALLED [facility] FOR [facility], , ASKED FOR ASSESSMENT FOR REHAB ADMISSION. CM FAXED REFERRAL TO [facility] VIA [facility] AT [phone]. CM WAITING ADMISSION DETERMINATION FROM [facility], PT'S INSURANCE AUTHORIZATION FOR REHAB SERVICES AT [facility] AND [facility] SCREENING COMPLETION AND APPROVAL TO ENTER JAIL FOR REHAB. Abran Henning, CASE MANAGEMENT DCP- Discharge Planning Updated by [id number]: Abran Henning on 06/19/18 4:[address] Patient Name: GLENN MARTINEZ Admission Status: ER Accout number: [id number] Admission Date: 06-02-2018 : 1955 Admission Diagnosis:ACUTE ON CHRONIC SYSTOLIC (CONGESTIVE) HEART FAILURE Attending: URVASHI LIRA Current LOS: 17 Anticipated DC Date: Planned Disposition: [facility] Facility Primary Insurance: [employer] PPO MCR ADVANT Planned External Provider[facility] Discharge Planning Comments: CM RECEIVED CALL FROM [facility] OF INPATIENT REHAB, PT'S INSURANCE DECLINED INPATIENT REHAB SERVICES. CM MET WITH PT, DISCUSSED DECLINATION BY INSURANCE WELL AVAILABILITY OF [facility] REHAB, PROVIDERS AND LOCATIONS. [facility]. IMPORTANT MESSAGE FROM MEDICARE PROVIDED AND DISCUSSED. PT HAS SEIZURE DISORDER WITH ONSET AFTER AGE 20, WILL REQUIRE LAKHWINDER SCREENING ASSESSMENT. PT'S DAUGHTER ARRIVED AND IS IN AGREEMENT WITH REHAB WHEN PT IS STABLE. PT WOULD LIKE FOR DAUGHTER TO HAVE POWER OF DRUM BUILDER FOR MEDICAL PURPOSES. CM PROVIDED MEDICAL POWER OF DRUM BUILDER PAPERWORK FOR COMPLETION, ADVISED TO SIGN IN PRESENCE OF NOTARY ONLY AND ERIKA ADVISED THAT NOTARY AVAILABLE DURING BUSINESS HOURS AT [place]. PT WILL NOTIFY CM WHEN THEY ARE READY FOR NOTARY SERVICES. CM TO COMPLETE AND SUBMIT LAKHWINDER SCREENING ASSESSMENT AND SEND REFERRAL TO [facility] AND REHAB SOON POSSIBLE. Signal Intelligence Analyst: Abran Henning DCP- Discharge Planning Updated by [id number]: Oksana Hernandes on 06/18/18 2:[address] Awaiting OT eval and INP rehab evaluation. Rehab awaiting auth from [employer]. CM will continue to follow and assist with discharge planning / needs. DCP- Discharge Planning Updated by [id number]: Oksana Hernandes on 06/09/18 5:[address] Patient Name: GLENN MARTINEZ Admission Status: ER Accout number: [id number] Admission Date: 06-02-2018 : 1955 Admission Diagnosis:ACUTE ON CHRONIC SYSTOLIC (CONGESTIVE) HEART FAILURE Attending: URVASHI LIRA Current LOS: 7 Anticipated DC Date: Planned Disposition: Primary Insurance: [employer] CHOICE PPO MCR ADVANT Discharge Planning Comments: CM met with son Star at bedside. Patient is currently still on vent and sedated at this time. Star stated that patient lives alone but his sister Fela lives next door. He stated he was independent of ADLS prior to neck surg. Uncertain of disposition at this time may require rehab after long intensive care stay. CM will continue to follow and assist as needed with discharge planning / needs. Signal Intelligence Analyst: Oksana Hernandes DCP- Discharge Planning Updated by [id number]: Oksana Hernandes on 06/06/18 9:[address] CM attempted to do intake assessment for discharge planning. Patient is currently on ventilator and sedated. No family available at this time. CM will continue to follow and assist as needed with discharge planning / needs DCPIA - Discharge Planning Initial Assessment Updated by [id number]: Oksana Hernandes on 06/09/18 6:40 pm * Is the patient Alert and Oriented? No * How many steps to enter\exit or inside your home? * PCP HALIMA MOTT MD * Pharmacy [facility] * Preadmission Environment Home Alone * ADLs Independent * Other Equipment neck brace * List name and contact numbers for known caregivers / representatives who currently or will assist patient after discharge: Fela Martinez - daughter- [phone] Star Martinez - son - [phone] * Verbal permission to speak to the caregivers and representatives has been obtained from the patient. N/A * Community resources currently utilized None * Additional services required to return to the preadmission environment? No * Can the patient safely return to the preadmission environment? Yes * Has this patient been hospitalized within the prior 30 days at any hospital? No Coverage Notice Reviewer: [id number] - Abran Henning Notice Issued Date-Time: 06/19/2018 16:50 Notice Type: IM Discharge Notice Notice Delivered To: Patient Relationship to Patient: Manager Business Management Name: Delivery Method: HAND - Hand Delivered Manisha Days: Prior Verbal Notification: Recipient Understood Notice: Yes Recipient Signature: Yes Med Rec Note Co-signed by Attending: Coverage Notice Comment: Reviewer: [id number] Sierra Henning Notice Issued Date-Time: 06/19/2018 16:50 Notice Type: Patient Choice Letter Notice Delivered To: Patient Relationship to Patient: Manager Business Management Name: Delivery Method: HAND - Hand Delivered Manisha Days: Prior Verbal Notification: Recipient Understood Notice: Yes Recipient Signature: Yes Med Rec Note Co-signed by Attending: Coverage Notice Comment: [facility] Last DP export: 06/20/18 2:59 pm Patient Name: GLENN MARTINEZ Page 07563 at 1611 All edits/amendments must be made on the electronic document DICTATION DATE: 06/20/181610 DIRECTOR OF DIGITAL PLATFORMS: ESAU 06/20/181610 RPT#: [id number] DC DATE: STATUS: ADM IN [facility] [address] [place] [address] END OF REPORT
[2018-06-20 16:38] VITALS: BP 118/70
[2018-06-20 20:00] VITALS: BP 120/77
[2018-06-21 04:00] VITALS: BP 123/69
[2018-06-21 09:40] VITALS: BP 115/70
[2018-06-21 13:51] VITALS: BP 129/77
[2018-06-21 17:02] VITALS: BP 122/73
[2018-06-21 20:00] VITALS: BP 129/76
[2018-06-22] VITALS (7 sets, daily range): BP systolic 113–145; BP diastolic 72–86
[2018-06-22 05:58] LABS: BASOPHILS 0.6 % (0-2); EOSINOPHILS 5.9 % (0-7); HEMATOCRIT 32.7 % (42.0-54.0); HEMOGLOBIN 10.9 g/dL (13.5-17.5); IMMATURE GRANULOCYTES 0.2 % (0-5); LYMPHOCYTES 29.6 % (15-50); MCH 30.3 pg (26.0-34.0); MCHC 33.3 g/dL (31.0-37.0); MCV 90.8 fL (80.0-100.0); MEAN PLATELET VOLUME 11.8 fL (7.4-10.4); MONOCYTES 16.7 % (2-11); PLATELET COUNT 141 10x3/uL (130-400); RDW 15.7 % (11.5-14.5); WBC 5.1 10x3/uL (4.8-10.8)
[2018-06-22 06:18] LABS: ANION GAP 15.8 mmol/L (8-16); CALCIUM 8.3 mg/dL (8.5-10.1); CARBON DIOXIDE 21.1 mmol/L (21.0-32.0); CREATININE - SERUM 1.3 mg/dL (0.6-1.3); POTASSIUM - SERUM 3.9 mmol/L (3.5-5.1)
--- NOTE | 2018-06-22 18:50 | MORECARE ---
CASE MANAGEMENT DISCHARGE SUMMARY PATIENT: GLENN MARTINEZ UNIT: [id number] ADM DATE: 06/02/18 AGE: 63 : 53 SEX: M ROOM/BED: D.2112 AUTHOR: DINORAH,DOC PHYSICIAN: REFERRING PHYSICIAN: URVASHI LIRA MD DATE OF SERVICE: 06/22/18 Discharge Plan Patient Name: GLENN MARTINEZ Facility: [facility]:[place] : 1955 Planned Disposition: Custodial Facility Anticipated Discharge Date: Discharge Date: Expected LOS: Initial Reviewer: [id number] Initial Review Date: 06/02/2018 Generated: 06/22/18 7:50 pm Comments DCP- Discharge Planning Updated by [id number]: Salud Graves on 06/22/18 5:[address] ORDER RECEIVED: Prior to dc check for O2 requirements and arrange nebulizer with duoneb 4 times a day. Reviewed chart and see dc plan is for the patient to go to skilled rehab. CM will arrange for O2 and nebulizer if patient goes home. half-way will provide O2 and nebulizer at the facility. Salud Graves RN, [facility] DCP- Discharge Planning Updated by [id number]: Abran Henning on 06/20/18 3:[address] Patient Name: GLENN MARTINEZ Encounter No: [id number] : 1955 Primary Insurance: HUMANA CHOICE PPO MCR ADVANT Anticipated DC Date: Planned Disposition: Custodial Facility External Planned Provider: [facility] MEDICARE REHAB BED DCP follow-up note: [facility], THEY ARE OUT OF NETWORK WITH PT'S MANAGED MEDICARE INSURANCE. CM MET WITH PT IN ROOM, PROVIDED PENITENTIARY CHOICE LIST. [facility], [facility] AND [facility], CHOICE SIGNED. CM NOTIFIED [facility] WHO WILL FORWARD REFERRAL TO [facility]. CM FAXED REHAB REFERRAL TO [facility] AT [phone]. CM WAITING ADMISSION DETERMINATION FROM [facility] AND [facility], PT'S INSURANCE AUTHORIZATION FOR REHAB SERVICES AT [facility] AND [facility] SCREENING COMPLETION AND APPROVAL TO ENTER PENITENTIARY FOR REHAB. Abran [place], CASE MANAGEMENT DCP- Discharge Planning Updated by [id number]: Abran Henning on 06/20/18 9:[address] Patient Name: GLENN MARTINEZ Encounter No: [id number] : 1955 Primary Insurance: HUMANA CHOICE PPO MCR ADVANT Anticipated DC Date: Planned Disposition: Custodial Facility External Planned Provider: [facility], MEDICARE REHAB BED DCP follow-up note: CM COMPLETED [facility], RECEIVED NEEDED SIGNATURES. FAXED COMPLETED [facility] SCREENING WITH SUPPORTING MEDICAL DOCUMENTS TO [facility] AT [phone]. CM CALLED [facility]EN CLINICAL LIAISON FOR [facility], , ASKED FOR ASSESSMENT FOR REHAB ADMISSION. CM FAXED REFERRAL TO [facility] VIA [facility] AT [phone]. CM WAITING ADMISSION DETERMINATION FROM [facility] 'S INSURANCE AUTHORIZATION FOR REHAB SERVICES AT [facility] AND [facility] SCREENING COMPLETION AND APPROVAL TO ENTER PENITENTIARY FOR REHAB. Abran Henning CASE [place] DCP- Discharge Planning Updated by [id number]: Abran Henning on 06/19/18 4:[address] Patient Name: GLENN MARTINEZ Admission Status: ER Accout number: [id number] Admission Date: 06-02-2018 : 1955 Admission Diagnosis:ACUTE ON CHRONIC SYSTOLIC (CONGESTIVE) HEART FAILURE Attending: URVASHI LIRA Current LOS: 17 Anticipated DC Date: Planned Disposition: Custodial Facility Primary Insurance: HUMANA CHOICE PPO MCR ADVANT Planned External Provider: [facility], MEDICARE REHAB BED Discharge Planning Comments: CM RECEIVED CALL FROM [facility] OF [facility]PATIENT RE[facility], PT'S INSURANCE DECLINED INPATIENT REHAB SERVICES. CM MET WITH PT, DISCUSSED DECLINATION BY INSURANCE WELL AVAILABILITY OF PENITENTIARY REHAB, PROVIDERS AND LOCATIONS. PT WOULD LIKE REFERRED TO [facility] SIGNED. IMPORTANT MESSAGE FROM MEDICARE PROVIDED AND DISCUSSED. PT HAS SEIZURE DISORDER WITH ONSET AFTER AGE 20, WILL REQUIRE [facility] SCREENING ASSESSMENT. PT'S DAUGHTER ARRIVED AND IS IN AGREEMENT WITH REHAB WHEN PT IS STABLE. PT WOULD LIKE FOR DAUGHTER TO HAVE POWER OF ABRASIVE MIXER HELPER FOR MEDICAL PURPOSES. CM PROVIDED MEDICAL POWER OF ABRASIVE MIXER HELPER PAPERWORK FOR COMPLETION, ADVISED TO SIGN IN PRESENCE OF NOTARY ONLY AND [facility] ADVISED THAT NOTARY AVAILABLE DURING BUSINESS HOURS AT [facility]. PT WILL NOTIFY CM WHEN THEY ARE READY FOR [facility] SERVICES. CM TO COMPLETE AND SUBMIT [facility] SCREENING ASSESSMENT AND SEND REFERRAL TO [facility] AND REHAB SOON POSSIBLE. Business Development Assistant: Abran Henning DCP- Discharge Planning Updated by [id number]: Oksana Hernandes on 06/18/18 2:[address] Awaiting OT eval and INP rehab evaluation. Rehab awaiting auth from [facility]. CM will continue to follow and assist with discharge planning / needs. DCP- Discharge Planning Updated by [id number]: Oksana Hernandes on 06/09/18 5:[address] Patient Name: GLENN MARTINEZ Admission Status: ER Accout number: [id number] Admission Date: 06-02-2018 : 1955 Admission Diagnosis:ACUTE ON CHRONIC SYSTOLIC (CONGESTIVE) HEART FAILURE Attending: URVASHI LIRA Current LOS: 7 Anticipated DC Date: Planned Disposition: Primary Insurance: HUMANA CHOICE PPO [facility] ADVANT Discharge Planning Comments: CM met with son Star at bedside. Patient is currently still on vent and sedated at this time. Star stated that patient lives alone but his sister Fela lives next door. He stated he was independent of ADLS prior to neck surg. Uncertain of disposition at this time may require rehab after long intensive care stay. CM will continue to follow and assist as needed with discharge planning / needs. Business Development Assistant: Oksana Hernandes DCP- Discharge Planning Updated by [id number]: Oksana Hernandes on 06/06/18 9:[address] CM attempted to do intake assessment for discharge planning. Patient is currently on ventilator and sedated. No family available at this time. CM will continue to follow and assist as needed with discharge planning / needs DCPIA - Discharge Planning Initial Assessment Updated by [id number]: Oksana Hernandes on 06/09/18 6:40 pm * Is the patient Alert and Oriented? No * How many steps to enter\exit or inside your home? * PCP HALIMA MOTT MD * Pharmacy [facility] * Preadmission Environment Home Alone * ADLs Independent * Other Equipment neck brace * List name and contact numbers for known caregivers / representatives who currently or will assist patient after discharge: Fela Martinez - daughter- [phone] Star Martinez - son - [phone] * Verbal permission to speak to the caregivers and representatives has been obtained from the patient. N/A * Community resources currently utilized None * Additional services required to return to the preadmission environment? No * Can the patient safely return to the preadmission environment? Yes * Has this patient been hospitalized within the prior 30 days at any hospital? No Coverage Notice Reviewer: [id number] Henning Notice Issued Date-Time: 06/19/2018 16:50 Notice Type: IM Discharge Notice Notice Delivered To: Patient Relationship to Patient: Customs And Border Protection Inspector Name: Delivery Method: HAND - Hand Delivered Manisha Days: Prior Verbal Notification: Recipient Understood Notice: Yes Recipient Signature: Yes Med Rec Note Co-signed by Attending: Coverage Notice Comment: Reviewer: CHRIS Henning Notice Issued Date-Time: 06/19/2018 16:50 Notice Type: Patient Choice Letter Notice Delivered To: Patient Relationship to Patient: Customs And Border Protection Inspector Name: Delivery Method: HAND - Hand Delivered Manisha Days: Prior Verbal Notification: Recipient Understood Notice: Yes Recipient Signature: Yes Med Rec Note Co-signed by Attending: Coverage Notice Comment: [facility] Last DP export: 06/20/18 3:11 pm Patient Name: GLENN MARTINEZ Page 76373 at 1850 All edits/amendments must be made on the electronic document DICTATION DATE: 06/22/181849 MEASUREMENT AND SENSING TECHNICIAN: ESAU 06/22/181849 RPT#: [id number] DC DATE: STATUS: ADM IN [facility] [address] [place] [address] END OF REPORT
[2018-06-23 03:50] VITALS: BP 132/80
[2018-06-23 05:45] LABS: BASOPHILS 0.6 % (0-2); EOSINOPHILS 6.4 % (0-7); HEMATOCRIT 36.2 % (42.0-54.0); HEMOGLOBIN 12.1 g/dL (13.5-17.5); IMMATURE GRANULOCYTES 0.4 % (0-5); LYMPHOCYTES 31.5 % (15-50); MCH 30.3 pg (26.0-34.0); MCHC 33.4 g/dL (31.0-37.0); MCV 90.7 fL (80.0-100.0); MEAN PLATELET VOLUME 12.3 fL (7.4-10.4); MONOCYTES 11.3 % (2-11); NEUTROPHILS 49.8 % (40-80); RBC 3.99 10x6/uL (4.20-6.10); RDW 15.6 % (11.5-14.5); WBC 5.3 10x3/uL (4.8-10.8)
[2018-06-23 05:46] LABS: PLATELET COUNT 187 10x3/uL (130-400)
[2018-06-23 06:05] LABS: ANION GAP 14.4 mmol/L (8-16); CALCIUM 8.6 mg/dL (8.5-10.1); CARBON DIOXIDE 24.6 mmol/L (21.0-32.0); CREATININE - SERUM 1.2 mg/dL (0.6-1.3)
--- NOTE | 2018-06-23 13:52 | MORECARE ---
CASE MANAGEMENT DISCHARGE SUMMARY PATIENT: GLENN MARTINEZ UNIT: [id number] ADM DATE: 06/02/18 AGE: 63 : 54 SEX: M ROOM/BED: D.2112 AUTHOR: DINORAH,DOC PHYSICIAN: REFERRING PHYSICIAN: URVASHI LIRA MD DATE OF SERVICE: 06/23/18 Discharge Plan Patient Name: GLENN MARTINEZ Facility: [facility]:[place] : 1955 Planned Disposition: [facility] Facility Anticipated Discharge Date: Discharge Date: Expected LOS: Initial Reviewer: [email or web address] Initial Review Date: 06/02/2018 Generated: 06/23/18 2:52 pm Comments DCP- Discharge Planning Updated by [id number]: Abran Henning on 06/23/18 12:[address] Patient Name: GLENN MARTINEZ Admission Status: ER Accout number: [id number] Admission Date: 06-02-2018 : 1955 Admission Diagnosis:ACUTE ON CHRONIC SYSTOLIC (CONGESTIVE) HEART FAILURE Attending: URVASHI LIRA Current LOS: 21 Anticipated DC Date: Planned Disposition: [facility] Facility Primary Insurance: [facility] Planned External Provider: [place] or [facility], Medicare Rehab bed Discharge Planning Comments: CM SPOKE TO ROXANNA LEWIS [facility] WHO REPORTS REFERRAL RECEIVED, THEY ARE REVIEWING FOR ADMISSION AND INSURANCE AUTHORIZATION. CM SPOKE TO [facility] OF [facility], WHO REPORTS REFERRAL RECEIVED, THEY ARE REVIEWING FOR ADMISSION AND INSURANCE AUTHORIZATION. CM FAXED [facility] APPROVAL OF NON PASSR FOR HALF-WAY FACILITY ENTRY WELL REHAB PLACEMENT UPDATES. CM WAITING ADMISSION DETERMINATIONS WELL INSURANCE AUTHORIZATION FOR REHAB FROM [facility] AND [facility]. Stripper [employer]: Abran Henning DCP- Discharge Planning Updated by [id number]: Salud Graves on 06/22/18 5:[address] ORDER RECEIVED: Prior to dc check for O2 requirements and arrange nebulizer with duoneb 4 times a day. Reviewed chart and see dc plan is for the patient to go to skilled rehab. CM will arrange for O2 and nebulizer if patient goes home. correction will provide O2 and nebulizer at the facility. Salud Graves RN, [facility] DCP- Discharge Planning Updated by [id number]: Abran Heninng on 06/20/18 3:[address] Patient Name: GLENN MARTINEZ Encounter No: [id number] : 1955 Primary Insurance: HUMANA CHOICE PPO MCR ADVANT Anticipated DC Date: Planned Disposition: [facility] Facility External [facility], MEDICARE REHAB BED DCP follow-up note: CM RECEIV[facility] M[facility], THEY ARE OUT OF NETWORK WITH PT'S MANAGED MEDICARE INSURANCE. CM MET WITH PT IN ROOM, PROVIDED HALF-WAY CHOICE LIST. PT WOULD LIKE REFERRALS TO [facility], [facility], CHOICE SIGNED. CM NOTIFIED AD[facility] WHO WILL FORWARD REFERRAL TO [facility]. CM [facility] AT [phone]. CM WAITING ADMISSION DETERMINATION FROM [facility] AND [facility], PT'S INSURANCE AUTHORIZATION FOR REHAB SERVICES AT [facility] AND [facility] SCREENING COMPLETION AND APPROVAL TO ENTER HALF-WAY FOR REHAB. Abran Henning CASE MANAGEMENT DCP- Discharge Planning Updated by [id number]: Abran Henning on 06/20/18 9:[address] Patient Name: GLENN MARTINEZ Encounter No: [id number] : 1955 Primary Insurance: HUMANA CHOICE PPO MCR ADVANT Anticipated DC Date: Planned Disposition: [facility] Facility External Planned Provider: [facility], MEDICARE REHAB BED DCP follow-up note: CM COMPLETED [facility], RECEIVED NEEDED SIGNATURES. FAXED COMPLETED [facility] SCREENING WITH SUPPORTING MEDICAL DOCUMENTS TO [facility] AT [phone]. CM CALLED ADEN, CLINICAL LIAISON FOR [facility], , ASKED FOR ASSESSMENT FOR REHAB ADMISSION. CM FAXED REFERRAL TO [facility] VIA [facility] AT [phone]. CM WAITING ADMISSION DETERMINATION FROM [facility], PT'S INSURANCE AUTHORIZATION FOR REHAB SERVICES AT [facility] AND [facility] SCREENING COMPLETION AND APPROVAL TO ENTER HALF-WAY FOR REHAB. Abran Henning CASE MANAGEMENT DCP- Discharge Planning Updated by [id number]: Abran Henning on 06/19/18 4:[address] Patient Name: GLENN MARTINEZ Admission Status: ER Accout number: [id number] Admission Date: 06-02-2018 : 1955 Admission Diagnosis:ACUTE ON CHRONIC SYSTOLIC (CONGESTIVE) HEART FAILURE Attending: URVASHI LIRA Current LOS: 17 Anticipated DC Date: Planned Disposition: [facility] Facility Primary Insurance: HUMANA CHOICE PPO MCR ADVANT Planned External Provider: [facility] REHAB BED Discharge Planning Comments: CM RECEIVED CALL FROM [facility] OF INPATIENT REH[facility], PT'S INSURANCE DECLINED INPATIENT REHAB SERVICES. CM MET WITH PT, DISCUSSED DECLINATION BY INSURANCE WELL AVAILABILITY OF HALF-WAY REHAB, PROVIDERS AND LOCATIONS. PT WOULD LIKE REFERRED TO [facility] SIGNED. IMPORTANT MESSAGE FROM MEDICARE PROVIDED AND DISCUSSED. PT HAS SEIZURE DISORDER WITH ONSET AFTER AGE 20, WILL REQUIRE [facility] SCREENING ASSESSMENT. PT'S DAUGHTER ARRIVED AND IS IN AGREEMENT WITH REHAB WHEN PT IS STABLE. PT WOULD LIKE FOR DAUGHTER TO HAVE POWER OF PRODUCTION PAINTER FOR MEDICAL PURPOSES. CM PROVIDED MEDICAL POWER OF PRODUCTION PAINTER PAPERWORK FOR COMPLETION, ADVISED TO SIGN IN PRESENCE OF NOTARY ONLY AND [facility] ADVISED THAT NOTARY AVAILABLE DURING BUSINESS HOURS AT [facility]. PT WILL NOTIFY CM WHEN THEY ARE READY FOR NOTARY SERVICES. CM TO COMPLETE AND SUBMIT [facility] SCREENING ASSESSMENT AND SEND REFERRAL TO [facility] AND REHAB SOON POSSIBLE. Stripper Opaquer: Abran Henning DCP- Discharge Planning Updated by [id number]: Oksana Hernandes on 06/18/18 2:[address] Awaiting OT eval and INP rehab evaluation. Rehab awaiting auth from [facility]. CM will continue to follow and assist with discharge planning / needs. DCP- Discharge Planning Updated by [id number]: Oksana Hernandes on 06/09/18 5:[address] Patient Name: GLENN MARTINEZ Admission Status: ER Accout number: [id number] Admission Date: 06-02-2018 : 1955 Admission Diagnosis:ACUTE ON CHRONIC SYSTOLIC (CONGESTIVE) HEART FAILURE Attending: URVASHI LIRA Current LOS: 7 Anticipated DC Date: Planned Disposition: Primary Insurance: HUMANA CHOICE PPO MCR ADVANT Discharge Planning Comments: CM met with son Star at bedside. Patient is currently still on vent and sedated at this time. Star stated that patient lives alone but his sister Fela lives next door. He stated he was independent of ADLS prior to neck surg. Uncertain of disposition at this time may require rehab after long intensive care stay. CM will continue to follow and assist as needed with discharge planning / needs. Stripper Opaquer: Oksana Hernandes DCP- Discharge Planning Updated by [id number]: Oksana Hernandes on 06/06/18 9:[address] CM attempted to do intake assessment for discharge planning. Patient is currently on ventilator and sedated. No family available at this time. CM will continue to follow and assist as needed with discharge planning / needs DCPIA - Discharge Planning Initial Assessment Updated by [id number]: Oksana Hernandes on 06/09/18 6:40 pm * Is the patient Alert and Oriented? No * How many steps to enter\exit or inside your home? * PCP HALIMA MOTT MD * Pharmacy [facility] / [facility] * Preadmission Environment Home Alone * ADLs Independent * Other Equipment neck brace * List name and contact numbers for known caregivers / representatives who currently or will assist patient after discharge: Fela Esquivel daughter- [phone] Star Esquivel son - [phone] * Verbal permission to speak to the caregivers and representatives has been obtained from the patient. N/A * Community resources currently utilized None * Additional services required to return to the preadmission environment? No * Can the patient safely return to the preadmission environment? Yes * Has this patient been hospitalized within the prior 30 days at any hospital? No External Providers External Provider: [facility] Next Contact Date: 06/23/2018 Service Request Date: Service Type: Resolution: Reviewer: Comments: Coverage Notice Reviewer: [id number] Sierra Henning Notice Issued Date-Time: 06/19/2018 16:50 Notice Type: IM Discharge Notice Notice Delivered To: Patient Relationship to Patient: [employer] Name: Delivery Method: HAND - Hand Delivered Manisha Days: Prior Verbal Notification: Recipient Understood Notice: Yes Recipient Signature: Yes Med Rec Note Co-signed by Attending: Coverage Notice Comment: Reviewer: [id number] Sierra Henning Notice Issued Date-Time: 06/19/2018 16:50 Notice Type: Patient Choice Letter Notice Delivered To: Patient Relationship to Patient: [employer] Name: Delivery Method: HAND - Hand Delivered Manisha Days: Prior Verbal Notification: Recipient Understood Notice: Yes Recipient Signature: Yes Med Rec Note Co-signed by Attending: Coverage Notice Comment: [facility] Last DP export: 06/22/18 5:50 pm Patient Name: GLENN MARTINEZ Page 20211 at 1352 All edits/amendments must be made on the electronic document DICTATION DATE: 06/23/18 1352 DEEP SUBMERGENCE VEHICLE CREWMEMBER: ESAU 06/23/18 1352 RPT#: [id number] DC DATE: STATUS: ADM IN [facility] [address] [place] [address] END OF REPORT
[2018-06-23 20:00] VITALS: BP 147/73
[2018-06-24] VITALS: BP 149/65
[2018-06-24 04:00] VITALS: BP 124/92
[2018-06-24 05:45] LABS: BASOPHILS 0.4 % (0-2); EOSINOPHILS 7.2 % (0-7); HEMATOCRIT 33.4 % (42.0-54.0); HEMOGLOBIN 11.2 g/dL (13.5-17.5); IMMATURE GRANULOCYTES 0.2 % (0-5); LYMPHOCYTES 27.7 % (15-50); MCH 30.4 pg (26.0-34.0); MCHC 33.5 g/dL (31.0-37.0); MCV 90.8 fL (80.0-100.0); MEAN PLATELET VOLUME 12.2 fL (7.4-10.4); MONOCYTES 14.1 % (2-11); NEUTROPHILS 50.4 % (40-80); PLATELET COUNT 164 10x3/uL (130-400); RBC 3.68 10x6/uL (4.20-6.10); RDW 15.4 % (11.5-14.5); WBC 4.7 10x3/uL (4.8-10.8)
[2018-06-24 06:12] LABS: ANION GAP 12.9 mmol/L (8-16); CALCIUM 8.1 mg/dL (8.5-10.1); CARBON DIOXIDE 24.6 mmol/L (21.0-32.0); CREATININE - SERUM 1.2 mg/dL (0.6-1.3); POTASSIUM - SERUM 3.5 mmol/L (3.5-5.1)
[2018-06-24 06:15] LABS: VIRAL - RESULT No virus isolated. (())
[2018-06-24 08:52] VITALS: BP 153/84
--- NOTE | 2018-06-24 09:04 | MORECARE ---
CASE MANAGEMENT DISCHARGE SUMMARY PATIENT: GLENN MARTINEZ UNIT: [id number] ADM DATE: 06/02/18 AGE: 63 : 53 SEX: M ROOM/BED: D.2112 AUTHOR: DINORAH,DOC PHYSICIAN: REFERRING PHYSICIAN: URVASHI LIRA MD DATE OF SERVICE: 06/24/18 Discharge Plan Patient Name: GLENN MARTINEZ Facility: [facility]:[place] : 1955 Planned Disposition: Detention Facility Anticipated Discharge Date: 06/24/18 Discharge Date: Expected LOS: 22 Initial Reviewer: [id number] Initial Review Date: 06/02/2018 Generated: 06/24/18 10:04 am Comments DCP- Discharge Planning Updated by [id number]: Abran Henning on 06/23/18 12:[address] Patient Name: GLENN MARTINEZ Admission Status: ER Accout number: [id number] Admission Date: 06-02-2018 : 1955 Admission Diagnosis:ACUTE ON CHRONIC SYSTOLIC (CONGESTIVE) HEART FAILURE Attending: URVASHI LIRA Current LOS: 21 Anticipated DC Date: Planned Disposition: Detention Facility Primary Insurance: [employer] Planned External Provider: [place] or [facility], Medicare Rehab bed Discharge Planning Comments: CM SPOKE TO ROXANNA LEWIS [facility] WHO REPORTS REFERRAL RECEIVED, THEY ARE REVIEWING FOR ADMISSION AND INSURANCE AUTHORIZATION. CM SPOKE TO ADEN OF [facility], WHO REPORTS REFERRAL RECEIVED, THEY ARE REVIEWING FOR ADMISSION AND INSURANCE AUTHORIZATION. CM FAXED [facility] APPROVAL OF NON PASSR FOR SHELTER FACILITY ENTRY WELL REHAB PLACEMENT UPDATES. CM WAITING ADMISSION DETERMINATIONS WELL INSURANCE AUTHORIZATION FOR REHAB FROM [facility] AND [facility]. Brass Chaser: Abran Henning DCP- Discharge Planning Updated by [id number]: Salud Graves on 06/22/18 5:[address] ORDER RECEIVED: Prior to dc check for O2 requirements and arrange nebulizer with duoneb 4 times a day. Reviewed chart and see dc plan is for the patient to go to skilled rehab. CM will arrange for O2 and nebulizer if patient goes home. [facility] will provide O2 and nebulizer at the facility. Salud Graves RN, [facility] DCP- Discharge Planning Updated by [id number]: Abran Henning on 06/20/18 3:[address] Patient Name: GLENN MARTINEZ Encounter No: [id number] : 1955 Primary Insurance: HUMANA CHOICE PPO MCR ADVANT Anticipated DC Date: Planned Disposition: Detention Facility External Planned Provider: [facility] OR [facility], MEDICARE REHAB BED DCP follow-up note: CM RECEIVED MESSAGE FROM [facility] THEY ARE OUT OF NETWORK WITH PT'S MANAGED MEDICARE INSURANCE. CM MET WITH PT IN ROOM, PROVIDED SHELTER CHOICE LIST. PT WOULD LIKE REFERRALS TO [facility], [facility] AND [facility], CHOICE SIGNED. CM NOTIFIED ADEN WHO WILL FORWARD REFERRAL TO [facility]. CM FAXED REHAB REFERRAL TO [facility] AT [phone]. CM WAITING ADMISSION DETERMINATION FROM [facility] AND [facility], PT'S INSURANCE AUTHORIZATION FOR [facility] AND [facility] SCREENING COMPLETION AND APPROVAL TO ENTER [facility] FOR REHAB. Abran Henning, CASE MANAGEMENT DCP- Discharge Planning Updated by [id number]: Abran Henning on 06/20/18 9:[address] Patient Name: GLENN MARTINEZ Encounter No: [id number] : 1955 Primary Insurance: HUMANA CHOICE PPO MCR ADVANT Anticipated DC Date: Planned Disposition: Detention Facility External Planned Provider: [facility], MEDICARE REHAB BED DCP follow-up note: CM COMPLETED [facility], RECEIVED NEEDED SIGNATURES. FAXED COMPLETED [facility] SCREENING WITH SUPPORTING MEDICAL DOCUMENTS TO [facility] AT [phone]. CM CALLED ADEN, [facility], , ASKED FOR ASSESSMENT FOR REHAB ADMISSION. CM [facility] AT [phone]. CM WAITING AD[facility]ION DETERMINATION [facility], PT'S INSURANCE AUTHORIZATION FOR [facility]AB SERVICES [facility] AND [facility] SCREENING COMPLETION AND APPROVAL TO ENTER [facility] FOR REHAB. Abran Henning CASE MANAGEMENT DCP- Discharge Planning Updated by [id number]: Abran Henning on 06/19/18 4:[address] Patient Name: GLENN MARTINEZ Admission Status: ER Accout number: [id number] Admission Date: 06-02-2018 : 1955 Admission Diagnosis:ACUTE ON CHRONIC SYSTOLIC (CONGESTIVE) HEART FAILURE Attending: URVASHI LIRA Current LOS: 17 Anticipated DC Date: Planned Disposition: Detention Facility Primary Insurance: HUMANA CHOICE PPO MCR ADVANT Planned External Provider: [facility] MED[facility]ARE REHAB BED Discharge Planning Comments: CM RECEIVED CALL FROM [facility], PT'S INSURANCE DECLINED INPATIENT REHAB SERVICES. CM MET WITH PT, DISCUSSED DECLINATION BY INSURANCE WELL AVAILABILITY OF [facility]LTER REHAB, PROVIDERS AND LOCATIONS. PT WOULD LIKE [facility]FERRED TO [facility] SIGNED. IMPORTANT MESSAGE FROM MEDICARE PROVIDED AND DISCUSSED. PT HAS SEIZURE DISORDER WITH ONSET AFTER AGE 20, WILL REQUIRE [facility] SCREENING ASSESSMENT. PT'S DAUGHTER ARRIVED AND IS IN AGREEMENT WITH REHAB WHEN PT IS STABLE. PT WOULD LIKE FOR DAUGHTER TO HAVE POWER OF GOLF CLUB MANAGER FOR MEDICAL PURPOSES. CM PROVIDED MEDICAL POWER OF GOLF CLUB MANAGER PAPERWORK FOR COMPLETION, ADVISED TO SIGN IN PRESENCE OF NOTARY ONLY AND ERIKA ADVISED THAT NOTARY AVAILABLE DURING BUSINESS HOURS AT [place]. PT WILL NOTIFY CM WHEN THEY ARE READY FOR NOTARY SERVICES. CM TO COMPLETE AND SUBMIT [facility] SCREENING ASSESSMENT AND SEND REFERRAL TO [facility] AND REHAB SOON POSSIBLE. Brass Chaser: Abran Henning DCP- Discharge Planning Updated by [id number]: Oksana Hernandes on 06/18/18 2:[address] Awaiting OT eval and INP rehab evaluation. Rehab awaiting auth from [facility]. CM will continue to follow and assist with discharge planning / needs. DCP- Discharge Planning Updated by [id number]: Oksana Hernandes on 06/09/18 5:[address] Patient Name: GLENN MARTINEZ Admission Status: ER Accout number: [id number] Admission Date: 06-02-2018 : 1955 Admission Diagnosis:ACUTE ON CHRONIC SYSTOLIC (CONGESTIVE) HEART FAILURE Attending: URVASHI LIRA Current LOS: 7 Anticipated DC Date: Planned Disposition: Primary Insurance: HUMANA CHOICE PPO MCR ADVANT Discharge Planning Comments: CM met with son Star at bedside. Patient is currently still on vent and sedated at this time. Star stated that patient lives alone but his sister Fela lives next door. He stated he was independent of ADLS prior to neck surg. Uncertain of disposition at this time may require rehab after long intensive care stay. CM will continue to follow and assist as needed with discharge planning / needs. Brass Chaser: Oksana Hernandes DCP- Discharge Planning Updated by [id number]: Oksana Hernandes on 06/06/18 9:[address] CM attempted to do intake assessment for discharge planning. Patient is currently on ventilator and sedated. No family available at this time. CM will continue to follow and assist as needed with discharge planning / needs DCPIA - Discharge Planning Initial Assessment Updated by [email or web address]: Oksana Hernandes on 06/09/18 6:40 pm * Is the patient Alert and Oriented? No * How many steps to enter\exit or inside your home? * PCP HALIMA MOTT MD * Pharmacy [facility] * Preadmission Environment Home Alone * ADLs Independent * Other Equipment neck brace * List name and contact numbers for known caregivers / representatives who currently or will assist patient after discharge: Fela Esquivel daughter- [phone] Star Esquivel son - [phone] * Verbal permission to speak to the caregivers and representatives has been obtained from the patient. N/A * Community resources currently utilized None * Additional services required to return to the preadmission environment? No * Can the patient safely return to the preadmission environment? Yes * Has this patient been hospitalized within the prior 30 days at any hospital? No Coverage Notice Reviewer: [id number] Henning Notice Issued Date-Time: 06/19/2018 16:50 Notice Type: IM Discharge Notice Notice Delivered To: Patient Relationship to Patient: Aerial Photogrammetrist Name: Delivery Method: HAND - Hand Delivered Manisha Days: Prior Verbal Notification: Recipient Understood Notice: Yes Recipient Signature: Yes Med Rec Note Co-signed by Attending: Coverage Notice Comment: Reviewer: [id number] Henning Notice Issued Date-Time: 06/19/2018 16:50 Notice Type: Patient Choice Letter Notice Delivered To: Patient Relationship to Patient: Aerial Photogrammetrist Name: Delivery Method: HAND - Hand Delivered Manisha Days: Prior Verbal Notification: Recipient Understood Notice: Yes Recipient Signature: Yes Med Rec Note Co-signed by Attending: Coverage Notice Comment: [facility] Reviewer: [id number] Henning Notice Issued Date-Time: 06/24/2018 8:40 Notice Type: IM Discharge Notice Notice Delivered To: Patient Relationship to Patient: Aerial Photogrammetrist Name: Delivery Method: HAND - Hand Delivered Manisha Days: Prior Verbal Notification: Recipient Understood Notice: Yes Recipient Signature: Yes Med Rec Note Co-signed by Attending: Coverage Notice Comment: Last DP export: 06/23/18 12:52 pm Patient Name: GLENN MARTINEZ Page 32586 at 0904 All edits/amendments must be made on the electronic document DICTATION DATE: 06/24/18903 LEAD PRINTER: ESAU 06/24/18903 RPT#: [id number] DC DATE: STATUS: ADM IN [facility] [address] [place] [address] END OF REPORT
--- NOTE | 2018-06-24 09:11 | MORECARE ---
CASE MANAGEMENT DISCHARGE SUMMARY PATIENT: GLENN MARTINEZ UNIT: [id number] ADM DATE: 06/02/18 AGE: 63 : 54 SEX: M ROOM/BED: D.2112 AUTHOR: DINORAH,DOC PHYSICIAN: REFERRING PHYSICIAN: URVASHI LIRA MD DATE OF SERVICE: 06/24/18 Discharge Plan Patient Name: GLENN MARTINEZ Facility: [facility]:[place] : 1955 Planned Disposition: [facility] Facility Anticipated Discharge Date: 06/24/18 Discharge Date: Expected LOS: 22 Initial Reviewer: [id number] Initial Review Date: 06/02/2018 Generated: 06/24/18 10:11 am Comments DCP- Discharge Planning Updated by [id number]: Abran Henning on 06/24/18 8:[address] Patient Name: GLENN MARTINEZ Encounter No: [id number] : 1955 Primary Insurance: HUMANA CHOICE PPO MCR ADVANT Anticipated DC Date: 06-24-2018 Planned Disposition: [facility] Facility External Planned Provider: [facility], MEDICARE REHAB BED DCP follow-up note: CM RECEIVED CALL FROM [facility], INSURANCE AUTHORIZATION RECEIVED FOR REHAB AT THE FACILITY. CM MET WITH PT IN ROOM, DISCUSSED REHAB, PT WANTS TO GO TO REHAB TODAY AT [facility]. IMPORTANT MESSAGE FROM MEDICARE PROVIDED AND EXPLAINED. CM PAGED STEPHANI BROOKS TO NOTIFY OF REHAB ACCEPTANCE FOR HOSPITAL DISCHARGE. FOR DISCHARGE, FAX DISCHARGE INFORMATION TO [facility] AT [phone]. CALL NURSE REPORT TO [facility] AT [phone]. [facility] TO ARRANGE VAN TRANSPORTATION. Abran Henning, CASE MANAGEMENT DCP- Discharge Planning Updated by [id number]: Abran Henning on 06/23/18 12:[address] Patient Name: GLENN MARTINEZ Admission Status: ER Accout number: [id number] Admission Date: 06-02-2018 : 1955 Admission Diagnosis:ACUTE ON CHRONIC SYSTOLIC (CONGESTIVE) HEART FAILURE Attending: URVASHI LIRA Current LOS: 21 Anticipated DC Date: Planned Disposition: [facility] Facility Primary Insurance: HUMANA CHOICE PPO MCR ADVANT Planned External Provider: [place] or [facility], Medicare Rehab bed Discharge Planning Comments: CM SPOKE TO ROXANNA OF [facility] WHO REPORTS REFERRAL RECEIVED, THEY ARE REVIEWING FOR ADMISSION AND INSURANCE AUTHORIZATION. CM SPOKE TO ADEN OF [facility], WHO REPORTS REFERRAL RECEIVED, THEY ARE REVIEWING FOR ADMISSION AND INSURANCE AUTHORIZATION. CM FAXED [facility] APPROVAL OF NON PASSR FOR [facility] FACILITY ENTRY WELL REHAB PLACEMENT UPDATES. CM WAITING ADMISSION DETERMINATIONS WELL INSURANCE AUTHORIZATION FOR REHAB FROM [facility] AND [facility]. Order Selector: Abran Henning DCP- Discharge Planning Updated by [id number]: Salud Graves on 06/22/18 5:[address] ORDER RECEIVED: Prior to dc check for O2 requirements and arrange nebulizer with duoneb 4 times a day. Reviewed chart and see dc plan is for the patient to go to skilled rehab. CM will arrange for O2 and nebulizer if patient goes home. [facility] will provide O2 and nebulizer at the facility. Salud Graves RN, [facility] DCP- Discharge Planning Updated by [id number]: Abran Henning on 06/20/18 3:[address] Patient Name: GLENN MARTINEZ Encounter No: [id number] : 1955 Primary Insurance: HUMANA CHOICE PPO MCR ADVANT Anticipated DC Date: Planned Disposition: [facility] Facility External Planned Provider: [facility], MEDICARE REHAB BED DCP follow-up note: CM RECEIVED MESSAGE FROM [facility], THEY ARE OUT OF NETWORK WITH PT'S MANAGED MEDICARE INSURANCE. CM MET WITH PT IN ROOM, PROVIDED USP CHOICE LIST. PT WOULD LIKE REFERRALS TO [facility], [facility] AND [facility], CHOICE SIGNED. CM NOTIFIED ADEN WHO WILL FORWARD REFERRAL TO [facility]. CM FAXED REHAB REFERRAL TO [facility] AT [phone]. CM WAITING ADMISSION DETERMINATION FROM [facility] AND [facility], PT'S INSURANCE AUTHORIZATION FOR REHAB SERVICES AT [facility] AND [place] SCREENING COMPLETION AND APPROVAL TO ENTER [facility] FOR REHAB. Abran Henning, CASE MANAGEMENT DCP- Discharge Planning Updated by [id number]: Abran Henning on 06/20/18 9:[address] Patient Name: GLENN MARTINEZ Encounter No: [id number] : 1955 Primary Insurance: HUMANA CHOICE PPO MCR ADVANT Anticipated DC Date: Planned Disposition: [facility] Facility External Planned Provider: [facility], MEDICARE REHAB BED DCP follow-up note: CM COMPLETED [facility], RECEIVED NEEDED SIGNATURES. FAXED COMPLETED [facility] SCREENING WITH SUPPORTING MEDICAL DOCUMENTS TO [facility] AT [phone]. CM CALLED ADEN CLINICAL LIAISON FOR [facility], , ASKED FOR ASSESSMENT FOR REHAB ADMISSION. CM FAXED REFERRAL TO [facility] VIA ADEN AT [phone]. CM WAITING ADMISSION DETERMINATION FROM [facility], PT'S INSURANCE AUTHORIZATION FOR REHAB SERVICES AT [facility] AND [facility] SCREENING COMPLETION AND APPROVAL TO ENTER [facility] FOR REHAB. Abran Henning, CASE MANAGEMENT DCP- Discharge Planning Updated by [id number]: Abran Henning on 06/19/18 4:[address] Patient Name: GLENN MARTINEZ Admission Status: ER Accout number: [id number] Admission Date: 06-02-2018 : 1955 Admission Diagnosis:ACUTE ON CHRONIC SYSTOLIC (CONGESTIVE) HEART FAILURE Attending: URVASHI LIRA Current LOS: 17 Anticipated DC Date: Planned Disposition: [facility] Facility Primary Insurance: HUMANA CHOICE PPO MCR ADVANT Planned External Provider: [facility], MEDICARE REHAB BED Discharge Planning Comments: CM RECEIVED CALL FROM IDALIA OF [facility]PATIENT RE[facility], PT'S INSURANCE DECLINED INPATIENT REHAB SERVICES. CM MET WITH PT, DISCUSSED DECLINATION BY INSURANCE WELL AVAILABILITY OF [facility] REHAB, PROVIDERS AND LOCATIONS. PT WOULD LIKE REFERRED TO [facility] SIGNED. IMPORTANT MESSAGE FROM MEDICARE PROVIDED AND DISCUSSED. PT HAS SEIZURE DISORDER WITH ONSET AFTER AGE 20, WILL REQUIRE [facility] SCREENING ASSESSMENT. PT'S DAUGHTER ARRIVED AND IS IN AGREEMENT WITH REHAB WHEN PT IS STABLE. PT WOULD LIKE FOR DAUGHTER TO HAVE POWER OF HOSPITALITY HOUSEKEEPER FOR MEDICAL PURPOSES. CM PROVIDED MEDICAL POWER OF HOSPITALITY HOUSEKEEPER PAPERWORK FOR COMPLETION, ADVISED TO SIGN IN PRESENCE OF NOTARY ONLY AND ERIKA ADVISED THAT NOTARY AVAILABLE DURING BUSINESS HOURS AT [place]. PT WILL NOTIFY CM WHEN THEY ARE READY FOR NOTARY SERVICES. CM TO COMPLETE AND SUBMIT [facility] SCREENING ASSESSMENT AND SEND REFERRAL TO [facility] SOON POSSIBLE. Order Selector: Abran Henning DCP- Discharge Planning Updated by [id number]: Oksana Hernandes on 06/18/18 2:[address] Awaiting OT eval and INP rehab evaluation. Rehab awaiting auth from [facility]. CM will continue to follow and assist with discharge planning / needs. DCP- Discharge Planning Updated by [id number]: Oksana Hernandes on 06/09/18 5:[address] Patient Name: GLENN MARTINEZ Admission Status: ER Accout number: [id number] Admission Date: 06-02-2018 : 1955 Admission Diagnosis:ACUTE ON CHRONIC SYSTOLIC (CONGESTIVE) HEART FAILURE Attending: URVASHI LIRA Current LOS: 7 Anticipated DC Date: Planned Disposition: Primary Insurance: HUMANA CHOICE PPO [facility] Discharge Planning Comments: CM met with son Star at bedside. Patient is currently still on vent and sedated at this time. Star stated that patient lives alone but his sister Fela lives next door. He stated he was independent of ADLS prior to neck surg. Uncertain of disposition at this time may require rehab after long intensive care stay. CM will continue to follow and assist as needed with discharge planning / needs. Order Selector: Oksana Hernandes DCP- Discharge Planning Updated by [id number]: Oksana Hernandes on 06/06/18 9:[address] CM attempted to do intake assessment for discharge planning. Patient is currently on ventilator and sedated. No family available at this time. CM will continue to follow and assist as needed with discharge planning / needs DCPIA - Discharge Planning Initial Assessment Updated by [id number]: Oksana Hernandes on 06/09/18 6:40 pm * Is the patient Alert and Oriented? No * How many steps to enter\exit or inside your home? * PCP HALIMA MOTT MD * Pharmacy [facility] * Preadmission Environment Home Alone * ADLs Independent * Other Equipment neck brace * List name and contact numbers for known caregivers / representatives who currently or will assist patient after discharge: Fela Esquivel daughter- [phone] Star Esquivel son - [phone] * Verbal permission to speak to the caregivers and representatives has been obtained from the patient. N/A * Community resources currently utilized None * Additional services required to return to the preadmission environment? No * Can the patient safely return to the preadmission environment? Yes * Has this patient been hospitalized within the prior 30 days at any hospital? No Coverage Notice Reviewer: [id number] Henning Notice Issued Date-Time: 06/19/2018 16:50 Notice Type: Patient Choice Letter Notice Delivered To: Patient Relationship to Patient: Farm Appraiser Name: Delivery Method: HAND - Hand Delivered Manisha Days: Prior Verbal Notification: Recipient Understood Notice: Yes Recipient Signature: Yes Med Rec Note Co-signed by Attending: Coverage [facility] Reviewer: [id number] Henning Notice Issued Date-Time: 06/24/2018 8:40 Notice Type: IM Discharge Notice Notice Delivered To: Patient Relationship to Patient: Farm Appraiser Name: Delivery Method: HAND - Hand Delivered Manisha Days: Prior Verbal Notification: Recipient Understood Notice: Yes Recipient Signature: Yes Med Rec Note Co-signed by Attending: Coverage Notice Comment: Reviewer: CHRIS Henning Notice Issued Date-Time: 06/19/2018 16:50 Notice Type: IM Discharge Notice Notice Delivered To: Patient Relationship to Patient: Farm Appraiser Name: Delivery Method: HAND - Hand Delivered Manisha Days: Prior Verbal Notification: Recipient Understood Notice: Yes Recipient Signature: Yes Med Rec Note Co-signed by Attending: Coverage Notice Comment: Last DP export: 06/24/18 8:04 am Patient Name: GLENN MARTINEZ Page 14726 at 0911 All edits/amendments must be made on the electronic document DICTATION DATE: 06/24/18909 CYBER FORENSICS ANALYST: ESAU 06/24/18909 RPT#: [id number] DC DATE: STATUS: ADM IN [facility] [address] [place] [address] END OF REPORT
[2018-06-24] MEDS ORDERED: CATAPRES TTS-3 TRANSDERM (10:08)
[2018-06-24] MEDS ORDERED: LOPRESSOR25 MG PO (10:08)
[2018-06-24] MEDS ORDERED: IPRAT-ALBUT 0.5-3 ML UPD (11:05)
[2018-06-24 11:43] VITALS: BP 146/79
--- NOTE | 2018-06-24 13:22 | MORECARE ---
CASE MANAGEMENT DISCHARGE SUMMARY PATIENT: GLENN MARTINEZ UNIT: [id number] ADM DATE: 06/02/18 AGE: 63 : 54 SEX: M ROOM/BED: D.2112 AUTHOR: DINORAH,DOC PHYSICIAN: REFERRING PHYSICIAN: URVASHI LIRA MD DATE OF SERVICE: 06/24/18 Discharge Plan Patient Name: GLENN MARTINEZ Facility: [facility]:[place] : 1955 Planned Disposition: Fpc Facility Anticipated Discharge Date: 06/24/18 Discharge Date: Expected LOS: 22 Initial Reviewer: [id number] Initial Review Date: 06/02/2018 Generated: 06/24/18 2:21 pm Comments DCP- Discharge Planning Updated by [id number]: Abran Henning on 06/24/18 8:[address] Patient Name: GLENN MARTINEZ Encounter No: [id number] : 1955 Primary Insurance: HUMANA CHOICE PPO MCR ADVANT Anticipated DC Date: 06-24-2018 Planned Disposition: Fpc Facility External Planned Provider: [facility], MEDICARE REHAB BED DCP follow-up note: CM RECEIVED CALL FROM [facility], INSURANCE AUTHORIZATION RECEIVED FOR REHAB AT THE FACILITY. CM MET WITH PT IN ROOM, DISCUSSED REHAB, PT WANTS TO GO TO REHAB TODAY AT [facility]. IMPORTANT MESSAGE FROM MEDICARE PROVIDED AND EXPLAINED. CM PAGED STEPHANI BROOKS TO NOTIFY OF REHAB ACCEPTANCE FOR HOSPITAL DISCHARGE. FOR DISCHARGE, FAX DISCHARGE INFORMATION TO [facility] AT [phone]. CALL NURSE REPORT TO [facility] AT [phone]. [facility] TO ARRANGE VAN TRANSPORTATION. Abran Henning, CASE LUCILA DCP- Discharge Planning Updated by [id number]: Abran Henning on 06/23/18 12:[address] Patient Name: GLENN MARTINEZ Admission Status: ER Accout number: [id number] Admission Date: 06-02-2018 : 1955 Admission Diagnosis:ACUTE ON CHRONIC SYSTOLIC (CONGESTIVE) HEART FAILURE Attending: URVASHI LIRA Current LOS: 21 Anticipated DC Date: Planned Disposition: Fpc Facility Primary Insurance: HUMANA CHOICE PPO MCR ADVANT Planned External Provider: [place], Medicare Rehab bed Discharge Planning Comments: CM SPOKE TO ROXANNA OF [facility] WHO REPORTS REFERRAL RECEIVED, THEY ARE REVIEWING FOR ADMISSION AND INSURANCE AUTHORIZATION. CM SPOKE TO ADEN OF [facility], WHO REPORTS REFERRAL RECEIVED, THEY ARE REVIEWING FOR ADMISSION AND INSURANCE AUTHORIZATION. CM FAXED [facility] APPROVAL OF NON PASSR FOR [facility] FACILITY ENTRY WELL REHAB PLACEMENT UPDATES. CM WAITING ADMISSION DETERMINATIONS WELL INSURANCE AUTHORIZATION FOR REHAB FROM [facility] AND [facility]. Major Assembly Lineman: Abran Henning DCP- Discharge Planning Updated by [id number]: Salud Graves on 06/22/18 5:[address] ORDER RECEIVED: Prior to dc check for O2 requirements and arrange nebulizer with duoneb 4 times a day. Reviewed chart and see dc plan is for the patient to go to skilled rehab. CM will arrange for O2 and nebulizer if patient goes home. long-term will provide O2 and nebulizer at the facility. Salud Graves RN, [facility] DCP- Discharge Planning Updated by [id number]: Abran Henning on 06/20/18 3:[address] Patient Name: GLENN MARTINEZ Encounter No: [id number] : 1955 Primary Insurance: HUMANA CHOICE PPO MCR ADVANT Anticipated DC Date: Planned Disposition: Fpc Facility External [facility], MEDICARE REHAB BED DCP follow-up note: CM RECEIVED MESSAGE FROM [facility], THEY ARE OUT OF NETWORK WITH PT'S MANAGED MEDICARE INSURANCE. CM MET WITH PT IN ROOM, PROVIDED [facility] CHOICE LIST. PT WOULD LIKE REFERRALS TO [facility], [facility] AND [facility], CHOICE SIGNED. CM NOTIFIED ADEN WHO WILL FORWARD REFERRAL TO [facility]. CM [facility] AT [phone]. CM WAITING ADMISSION DETERMINATION FROM [facility] AND [facility], PT'S INSURANCE AUTHORIZATION FOR REHAB SERVICES AT [facility] AND [facility] SCREENING COMPLETION AND APPROVAL TO ENTER [facility] FOR REHAB. Abran Henning, CASE MANAGEMENT DCP- Discharge Planning Updated by [id number]: Abran Henning on 06/20/18 9:[address] Patient Name: GLENN MARTINEZ Encounter No: [id number] : 1955 Primary Insurance: HUMANA CHOICE PPO MCR ADVANT Anticipated DC Date: Planned Disposition: Fpc Facility External Planned Provider: [facility], MEDICARE REHAB BED DCP follow-up note: CM COMPLETED [facility], RECEIVED NEEDED SIGNATURES. FAXED COMPLETED [facility] SCREENING WITH SUPPORTING MEDICAL DOCUMENTS TO [facility] AT [phone]. CM CALLED ADEN CLINICAL LIAISON FOR [facility], , ASKED FOR ASSESSMENT FOR REHAB ADMISSION. CM FAXED REFERRAL TO [facility] VIA ADEN AT [phone]. CM WAITING ADMISSION DETERMINATION FROM [facility], PT'S INSURANCE AUTHORIZATION FOR REHAB SERVICES AT [facility] AND [facility] SCREENING COMPLETION AND APPROVAL TO ENTER [facility] FOR REHAB. Abran Henning, CASE MANAGEMENT DCP- Discharge Planning Updated by [id number]: Abran Henning on 06/19/18 4:[address] Patient Name: GLENN MARTINEZ Admission Status: ER Accout number: [id number] Admission Date: 06-02-2018 : 1955 Admission Diagnosis:ACUTE ON CHRONIC SYSTOLIC (CONGESTIVE) HEART FAILURE Attending: URVASHI LIRA Current LOS: 17 Anticipated DC Date: Planned Disposition: Fpc Facility Primary Insurance: HUMANA CHOICE PPO MCR ADVANT Planned External Provider: [facility], MEDICARE REHAB BED Discharge Planning Comments: CM RECEIVED CALL FROM [facility], PT'S INSURANCE DECLINED INPATIENT REHAB SERVICES. CM MET WITH PT, DISCUSSED DECLINATION BY INSURANCE WELL AVAILABILITY OF [facility] RE[facility]AB, PROVIDERS AND LOCATIONS. PT WOULD LIKE REFERRED TO [facility] SIGNED. IMPORTANT MESSAGE FROM MEDICARE PROVIDED AND DISCUSSED. PT HAS SEIZURE DISORDER WITH ONSET AFTER AGE 20, WILL REQUIRE [facility] SCREENING ASSESSMENT. PT'S DAUGHTER ARRIVED AND IS IN AGREEMENT WITH REHAB WHEN PT IS STABLE. PT WOULD LIKE FOR DAUGHTER TO HAVE POWER OF US MARKETING DIRECTOR FOR MEDICAL PURPOSES. CM PROVIDED MEDICAL POWER OF US MARKETING DIRECTOR PAPERWORK FOR COMPLETION, ADVISED TO SIGN IN PRESENCE OF NOTARY ONLY AND ERIKA ADVISED THAT NOTARY AVAILABLE DURING BUSINESS HOURS AT [place]. PT WILL NOTIFY CM WHEN THEY ARE READY FOR NOTARY SERVICES. CM TO COMPLETE AND SUBMIT [facility] SCREENING ASSESSMENT AND SEND REFERRAL TO [facility] SOON POSSIBLE. Major Assembly Lineman: Abran Henning DCP- Discharge Planning Updated by [id number]: Oksana Hernandes on 06/18/18 2:[address] Awaiting OT eval and INP rehab evaluation. Rehab awaiting auth from [facility]. CM will continue to follow and assist with discharge planning / needs. DCP- Discharge Planning Updated by [id number]: Oksana Hernandes on 06/09/18 5:[address] Patient Name: GLENN MARTINEZ Admission Status: ER Accout number: [id number] Admission Date: 06-02-2018 : 1955 Admission Diagnosis:ACUTE ON CHRONIC SYSTOLIC (CONGESTIVE) HEART FAILURE Attending: URVASHI LIRA Current LOS: 7 Anticipated DC Date: Planned Disposition: Primary Insurance: HUMANA CHOICE PPO [facility] Discharge Planning Comments: CM met with son Star at bedside. Patient is currently still on vent and sedated at this time. Star stated that patient lives alone but his sister Fela lives next door. He stated he was independent of ADLS prior to neck surg. Uncertain of disposition at this time may require rehab after long intensive care stay. CM will continue to follow and assist as needed with discharge planning / needs. Major Assembly Lineman: Oksana Hernandes DCP- Discharge Planning Updated by [id number]: Oksana Hernandes on 06/06/18 9:[address] CM attempted to do intake assessment for discharge planning. Patient is currently on ventilator and sedated. No family available at this time. CM will continue to follow and assist as needed with discharge planning / needs DCPIA - Discharge Planning Initial Assessment Updated by [id number]: Oksana Hernandes on 06/09/18 6:40 pm * Is the patient Alert and Oriented? No * How many steps to enter\exit or inside your home? * PCP HALIMA MOTT MD * Pharmacy [facility] * Preadmission Environment Home Alone * ADLs Independent * Other Equipment neck brace * List name and contact numbers for known caregivers / representatives who currently or will assist patient after discharge: Fela Esquivel daughter- [phone] Star Esquivel son - [phone] * Verbal permission to speak to the caregivers and representatives has been obtained from the patient. N/A * Community resources currently utilized None * Additional services required to return to the preadmission environment? No * Can the patient safely return to the preadmission environment? Yes * Has this patient been hospitalized within the prior 30 days at any hospital? No Coverage Notice Reviewer: CHRIS Henning Notice Issued Date-Time: 06/19/2018 16:50 Notice Type: IM Discharge Notice Notice Delivered To: Patient Relationship to Patient: Airplane Technician Name: Delivery Method: HAND - Hand Delivered Manisha Days: Prior Verbal Notification: Recipient Understood Notice: Yes Recipient Signature: Yes Med Rec Note Co-signed by Attending: Coverage Notice Comment: Reviewer: CHRIS Henning Notice Issued Date-Time: 06/19/2018 16:50 Notice Type: Patient Choice Letter Notice Delivered To: Patient Relationship to Patient: Airplane Technician Name: Delivery Method: HAND - Hand Delivered Manisha Days: Prior Verbal Notification: Recipient Understood Notice: Yes Recipient Signature: Yes Med Rec Note Co-signed by Attending: Coverage Notice Comment: [facility] Reviewer: [id number] Henning Notice Issued Date-Time: 06/24/2018 8:40 Notice Type: IM Discharge Notice Notice Delivered To: Patient Relationship to Patient: Airplane Technician Name: Delivery Method: HAND - Hand Delivered Manisha Days: Prior Verbal Notification: Recipient Understood Notice: Yes Recipient Signature: Yes Med Rec Note Co-signed by Attending: Coverage Notice Comment: Last DP export: 06/24/18 8:11 am Patient Name: GLENN MARTINEZ Page 18236 at 1322 All edits/amendments must be made on the electronic document DICTATION DATE: 06/24/18 1321 LACEWORKER: ESAU 06/24/18 1321 RPT#: [id number] DC DATE: STATUS: ADM IN [facility] [address] [place] [address] END OF REPORT
--- NOTE | 2018-06-24 13:32 | MORECARE ---
CASE MANAGEMENT DISCHARGE SUMMARY PATIENT: GLENN MARTINEZ UNIT: [id number] ADM DATE: 06/02/18 AGE: 63 : 54 SEX: M ROOM/BED: D.2112 AUTHOR: DINORAH,DOC PHYSICIAN: REFERRING PHYSICIAN: URVASHI LIRA MD DATE OF SERVICE: 06/24/18 Discharge Plan Patient Name: GLENN MARTINEZ Facility: [facility]:[place] : 1955 Planned Disposition: Alf Facility Anticipated Discharge Date: 06/24/18 Discharge Date: Expected LOS: 22 Initial Reviewer: [id number] Initial Review Date: 06/02/2018 Generated: 06/24/18 2:31 pm Comments DCP- Discharge Planning Updated by [id number]: Abran Henning on 06/24/18 12:[address] Patient Name: GLENN MARTINEZ Encounter No: [id number] : 1955 Primary Insurance: HUMANA CHOICE PPO MCR ADVANT Anticipated DC Date: 06-24-2018 Planned Disposition: Alf Facility External Planned Provider: [facility], MEDICARE REHAB BED DCP follow-up note: CM RECEIVED CALL FROM [facility], INSURANCE AUTHORIZATION RECEIVED FOR REHAB AT THE FACILITY. CM MET WITH PT IN ROOM, DISCUSSED REHAB, PT WANTS TO GO TO REHAB TODAY AT [facility]. IMPORTANT MESSAGE FROM MEDICARE PROVIDED AND EXPLAINED. CM PAGED STEPHANI BROOKS TO NOTIFY OF REHAB ACCEPTANCE FOR HOSPITAL DISCHARGE. FOR DISCHARGE, FAX DISCHARGE INFORMATION TO [facility] AT [phone]. CALL NURSE REPORT TO [facility] AT [phone]. [facility] TO ARRANGE VAN TRANSPORTATION. Abran Henning, CASE MANAGEMENT Appended by Abran Henning on 06/24/2018 13:23 DISPATCHER CLERK: CM RECEIVED DISCHARGE ORDER, NOTIFIED SCOT AT [facility] WHO WILL SCHEDULE IC DESIGNER CUSTOM FOR 1415 HOURS TODAY. CM FAXED DISCHARGE INFORMATION TO [facility] AT [phone]. PATIENT NOTIFIED, IN AGREEMENT WITH DISCHARGE TO [facility] TODAY. PT HAS NOTIFIED HIS FAMILY. BEDSIDE NURSE NOTIFIED. CALL NURSE REPORT TO [facility] AT [phone]. [facility] TO ARRANGE VAN TRANSPORTATION FOR 2:15PM TODAY. Abran Henning, CASE MANAGEMENT DCP- Discharge Planning Updated by [id number]: Abran Henning on 06/23/18 12:[address] Patient Name: GLENN MARTINEZ Admission Status: ER Accout number: [id number] Admission Date: 06-02-2018 : 1955 Admission Diagnosis:ACUTE ON CHRONIC SYSTOLIC (CONGESTIVE) HEART FAILURE Attending: URVASHI LIRA Current LOS: 21 Anticipated DC Date: Planned Disposition: Alf Facility Primary Insurance: HUMANA CHOICE PPO MCR ADVANT Planned External Provider: [facility], Medicare Rehab bed Discharge Planning Comments: CM SPOKE TO ORXANNA OF [facility] WHO REPORTS REFERRAL RECEIVED, THEY ARE REVIEWING FOR ADMISSION AND INSURANCE AUTHORIZATION. CM SPOKE TO ADEN OF [facility], WHO REPORTS REFERRAL RECEIVED, THEY ARE REVIEWING FOR ADMISSION AND INSURANCE AUTHORIZATION. CM FAXED [facility] APPROVAL OF NON PASSR FOR [facility] FACILITY ENTRY WELL REHAB PLACEMENT UPDATES. CM WAITING ADMISSION DETERMINATIONS WELL INSURANCE AUTHORIZATION FOR REHAB FROM [facility] AND [facility]. Puddler Helper: Abran Henning DCP- Discharge Planning Updated by [id number]: Salud Graves on 06/22/18 5:[address] ORDER RECEIVED: Prior to dc check for O2 requirements and arrange nebulizer with duoneb 4 times a day. Reviewed chart and see dc plan is for the patient to go to skilled rehab. CM will arrange for O2 and nebulizer if patient goes home. snf will provide O2 and nebulizer at the facility. Salud Graves RN, [facility] DCP- Discharge Planning Updated by [id number]: Abran Hennign on 06/20/18 3:[address] Patient Name: GLENN MARTINEZ Encounter No: [id number] : 1955 Primary Insurance: HUMANA CHOICE PPO MCR ADVANT Anticipated DC Date: Planned Disposition: Alf Facility External Planned Provider: [facility], MEDICARE REHAB BED DCP follow-up note: CM RECEIVED MESSAGE FROM [facility], THEY ARE OUT OF NETWORK WITH PT'S MANAGED MEDICARE INSURANCE. CM MET WITH PT IN ROOM, PROVIDED [facility] CHOICE LIST. PT WOULD LIKE REFERRALS TO [facility], [facility] AND [facility], CHOICE SIGNED. CM NOTIFIED ADEN WHO WILL FORWARD REFERRAL TO [facility]. CM FAXED REHAB REFERRAL TO [facility] AT [phone]. CM WAITING ADMISSION DETERMINATION [facility] AND [facility], PT'S INSURANCE AUTHORIZATION FOR REHAB SERVICES AT [facility] AND [facility] SCREENING COMPLETION AND APPROVAL TO ENTER [facility] FOR REHAB. Abran Henning CASE MANAGEMENT DCP- Discharge Planning Updated by [id number]: Abran Henning on 06/20/18 9:[address] Patient Name: GLENN MARTINEZ Encounter No: [id number] : 1955 Primary Insurance: [employer] PPO MCR ADVANT Anticipated DC Date: Planned Disposition: Alf Facility External Planned Provider: [facility] DCP follow-up note: CM COMPLETED [facility], RECEIVED NEEDED SIGNATURES. FAXED COMPLETED [facility] SCREENING WITH SUPPORTING MEDICAL DOCUMENTS TO [facility] AT [phone]. CM CALLED ADEN, CLINICAL LIAISON FOR [facility], , ASKED FOR ASSESSMENT FOR REHAB ADMISSION. CM FAXED REFERRAL TO [facility] VIA ADEN AT [phone]. CM WAITING ADMISSION DETERMINATION FROM [facility], PT'S INSURANCE AUTHORIZATION FOR REHAB SERVICES AT [facility] AND [facility] SCREENING COMPLETION AND APPROVAL TO ENTER [facility] FOR REHAB. Abran Henning CASE MANAGEMENT DCP- Discharge Planning Updated by [id number]: Abran Henning on 06/19/18 4:[address] Patient Name: GLENN MARTINEZ Admission Status: ER Accout number: [id number] Admission Date: 06-02-2018 : 1955 Admission Diagnosis:ACUTE ON CHRONIC SYSTOLIC (CONGESTIVE) HEART FAILURE Attending: URVASHI LIRA Current LOS: 17 Anticipated DC Date: Planned Disposition: Alf Facility Primary Insurance: [employer] PPO MCR ADVANT Planned External Provider: [facility] MED[facility] RE[facility] BED Discharge Planning Comments: CM RECEIVED CALL FROM [facility] OF [facility]PATIENT RE[facility], PT'S INSURANCE DECLINED INPATIENT REHAB SERVICES. CM MET WITH PT, DISCUSSED DECLINATION BY INSURANCE WELL AVAILABILITY OF [facility] REHAB, PROVIDERS AND LOCATIONS. PT WOULD LIKE REFERRED TO [facility] SIGNED. IMPORTANT MESSAGE FROM MEDICARE PROVIDED AND DISCUSSED. PT HAS SEIZURE DISORDER WITH ONSET AFTER AGE 20, WILL REQUIRE [facility] SCREENING ASSESSMENT. PT'S DAUGHTER ARRIVED AND IS IN AGREEMENT WITH REHAB WHEN PT IS STABLE. PT WOULD LIKE FOR DAUGHTER TO HAVE POWER OF GLASS FORMING CREW MEMBER FOR MEDICAL PURPOSES. CM PROVIDED MEDICAL POWER OF [employer]ASS FORMING CREW MEMBER PAPERWORK FOR COMPLETION, ADVISED TO SIGN IN PRESENCE OF NOTARY ONLY AND ERIKA ADVISED THAT NOTARY AVAILABLE DURING BUSINESS HOURS AT [place]. PT WILL NOTIFY CM WHEN THEY ARE READY FOR NOTARY SERVICES. CM TO COMPLETE AND SUBMIT [facility] SCREENING ASSESSMENT AND SEND REFERRAL TO [facility] AND [facility] SOON POSSIBLE. Puddler Helper: Abran Henning DCP- Discharge Planning Updated by [id number]: Oksana Hernandes on 06/18/18 2:[address] Awaiting OT eval and INP rehab evaluation. Rehab awaiting auth from [facility]. CM will continue to follow and assist with discharge planning / needs. DCP- Discharge Planning Updated by [id number]: Oksana Hernandes on 06/09/18 5:[address] Patient Name: GLENN MARTINEZ Admission Status: ER Accout number: [id number] Admission Date: 06-02-2018 : 1955 Admission Diagnosis:ACUTE ON CHRONIC SYSTOLIC (CONGESTIVE) HEART FAILURE Attending: URVASHI LIRA Current LOS: 7 Anticipated DC Date: Planned Disposition: Primary Insurance: HUMANA CHOICE O [facility] Discharge Planning Comments: CM met with son Star at bedside. Patient is currently still on vent and sedated at this time. Star stated that patient lives alone but his sister Fela lives next door. He stated he was independent of ADLS prior to neck surg. Uncertain of disposition at this time may require rehab after long intensive care stay. CM will continue to follow and assist as needed with discharge planning / needs. Puddler Helper: Oksana Hernandes DCP- Discharge Planning Updated by [id number]: Oksana Hernandes on 06/06/18 9:[address] CM attempted to do intake assessment for discharge planning. Patient is currently on ventilator and sedated. No family available at this time. CM will continue to follow and assist as needed with discharge planning / needs DCPIA - Discharge Planning Initial Assessment Updated by [id number]: Oksana Hernandes on 06/09/18 6:40 pm * Is the patient Alert and Oriented? No * How many steps to enter\exit or inside your home? * PCP HALIMA MOTT MD * Pharmacy [facility] / [facility] * Preadmission Environment Home Alone * ADLs Independent * Other Equipment neck brace * List name and contact numbers for known caregivers / representatives who currently or will assist patient after discharge: Fela Martinez - daughter- [phone] Star Esquivel son - [phone] * Verbal permission to speak to the caregivers and representatives has been obtained from the patient. N/A * Community resources currently utilized None * Additional services required to return to the preadmission environment? No * Can the patient safely return to the preadmission environment? Yes * Has this patient been hospitalized within the prior 30 days at any hospital? No Coverage Notice Reviewer: CHRIS Henning Notice Issued Date-Time: 06/19/2018 16:50 Notice Type: Patient Choice Letter Notice Delivered To: Patient Relationship to Patient: Senior Contract Specialist Name: Delivery Method: HAND - Hand Delivered Manisha Days: Prior Verbal Notification: Recipient Understood Notice: Yes Recipient Signature: Yes Med Rec Note Co-signed by Attending: Coverage Notice Comment: [facility] Reviewer: CHRIS Henning Notice Issued Date-Time: 06/24/2018 8:40 Notice Type: IM Discharge Notice Notice Delivered To: Patient Relationship to Patient: Senior Contract Specialist Name: Delivery Method: HAND - Hand Delivered Manisha Days: Prior Verbal Notification: Recipient Understood Notice: Yes Recipient Signature: Yes Med Rec Note Co-signed by Attending: Coverage Notice Comment: Reviewer: CHRIS Henning Notice Issued Date-Time: 06/19/2018 16:50 Notice Type: IM Discharge Notice Notice Delivered To: Patient Relationship to Patient: Senior Contract Specialist Name: Delivery Method: HAND - Hand Delivered Manisha Days: Prior Verbal Notification: Recipient Understood Notice: Yes Recipient Signature: Yes Med Rec Note Co-signed by Attending: Coverage Notice Comment: Last DP export: 06/24/18 12:22 pm Patient Name: GLENN MARTINEZ Page [id number] at 1332 All edits/amendments must be made on the electronic document DICTATION DATE: 06/24/18 1331 DRAFTER ELECTRICAL: ESAU 06/24/18 1331 RPT#: [id number] DC DATE: STATUS: ADM IN [facility] [address] [place] [address] END OF REPORT
[2018-07-07 07:10] LABS: FUNGUS MYCOLOGY CULTURE Final report (())
== END 2018-06-24 14:58 | DRG 870 ==
LOC: D.ER 05:29 → D.CVICU 07:31 → D.EDHOLD 07:31 → D.M2 07:31 → D.ICU 07:31 → D.CVICU 07:40 → D.ICU 06-06 10:59 → D.M2 06-19 13:42
PROVIDERS: Family Medicine; Internal Medicine Pulmonary Disease; Student in an Organized Health Care Education/Training Program; ADMIT Internal Medicine Nephrology
PROC: 0BH17EZ Insertion of Endotracheal Airway into Trachea, Via Natural or Artificial Opening (ICD-10-PCS; principal; 2018-06-02)
PROC: 5A1955Z Respiratory Ventilation, Greater than 96 Consecutive Hours (ICD-10-PCS; 2018-06-02)
PROC: 05HY33Z Insertion of Infusion Device into Upper Vein, Percutaneous Approach (ICD-10-PCS; 2018-06-04)
PROC: 0B9J8ZX Drainage of Left Lower Lung Lobe, Via Natural or Artificial Opening Endoscopic, Diagnostic (ICD-10-PCS; 2018-06-08)
PROC: 0B9D8ZX Drainage of Right Middle Lung Lobe, Via Natural or Artificial Opening Endoscopic, Diagnostic (ICD-10-PCS; 2018-06-08)
DX: A41.9 Sepsis, unspecified organism (principal); J96.01 Acute respiratory failure with hypoxia; I50.23 Acute on chronic systolic (congestive) heart failure; J15.6 Pneumonia due to other Gram-negative bacteria; J15.212 Pneumonia due to Methicillin resistant Staphylococcus aureus; J96.02 Acute respiratory failure with hypercapnia; I13.0 Hypertensive heart and chronic kidney disease with heart failure and stage 1 through stage 4 chronic kidney disease, or unspecified chronic kidney disease; N17.9 Acute kidney failure, unspecified; N39.0 Urinary tract infection, site not specified; F17.203 Nicotine dependence unspecified, with withdrawal; E87.0 Hyperosmolality and hypernatremia; N18.9 Chronic kidney disease, unspecified; M19.90 Unspecified osteoarthritis, unspecified site; E87.6 Hypokalemia; N40.0 Benign prostatic hyperplasia without lower urinary tract symptoms; F41.9 Anxiety disorder, unspecified; D69.6 Thrombocytopenia, unspecified; J44.9 Chronic obstructive pulmonary disease, unspecified; K21.9 Gastro-esophageal reflux disease without esophagitis; G40.909 Epilepsy, unspecified, not intractable, without status epilepticus; D50.9 Iron deficiency anemia, unspecified; I27.20 Pulmonary hypertension, unspecified; R50.9 Fever, unspecified; B96.20 Unspecified Escherichia coli [E. coli] as the cause of diseases classified elsewhere

== ENCOUNTER 2018-07-25 12:09 | Inpatient (IN) | payer MEDICARE ==
[2018-07-25] VITALS (28 sets, daily range): BP systolic 117–241; BP diastolic 72–145; BMI 22.6
[~2018-07-25] VITALS: Ht 170.2 cm; Wt 65.3 kg
[~2018-07-25 12:09] MED LIST changes: +CATAPRES TTS-3 TRANSDERM; +IPRAT-ALBUT 0.5-3 ML UPD; +LOPRESSOR25 MG PO
--- NOTE | 2018-07-25 12:50 | NUR ---
URINE SENT TO LAB AT THIS TIME.
[2018-07-25 13:06] LABS: APPEARANCE CLEAR (CLEAR); BILIRUBIN NEGATIVE (NEGATIVE); COLOR STRAW (YELLOW); GLUCOSE 50 mg/dL (NEGATIVE); KETONE NEGATIVE (NEGATIVE); NITRITE NEGATIVE (NEGATIVE); PROTEIN TRACE mg/dL (NEGATIVE); UROBILINOGEN NORMAL (NORMAL)
[2018-07-25 13:07] LABS: BACTERIA FEW /hpf (NONE SEEN); EPITHELIAL CELLS RARE /hpf (0-5); WHITE CELLS - URINE RARE /hpf (0-5)
[2018-07-25 13:38] LABS: BASOPHILS 0.3 % (0-2); HEMATOCRIT 39.3 % (42.0-54.0); HEMOGLOBIN 13.5 g/dL (13.5-17.5); IMMATURE GRANULOCYTES 0.3 % (0-5); LYMPHOCYTES 11.2 % (15-50); MCH 30.6 pg (26.0-34.0); MCHC 34.4 g/dL (31.0-37.0); MCV 89.1 fL (80.0-100.0); MONOCYTES 7.6 % (2-11); NEUTROPHILS 77.6 % (40-80); PLATELET COUNT 138 10x3/uL (130-400); RBC 4.41 10x6/uL (4.20-6.10); RDW 16.9 % (11.5-14.5)
--- NOTE | 2018-07-25 13:38 | NUR ---
NIPRIDE INCREASED TO 0.75MCG/G/MIN AT 1334.
--- NOTE | 2018-07-25 13:42 | NUR ---
NIPRIDE TITRATED UP TO 1.25 AT THIS TIME. BP 245/135.
--- NOTE | 2018-07-25 13:50 | NUR ---
HAND-OFF REPORT GIVEN TO DARA PATINO.
[2018-07-25 13:55] LABS: ALBUMIN 4.2 g/dL (3.4-5.0); ALKALINE PHOSPHATASE 161 U/L (46-116); ALT (SGPT) 57 U/L (10-68); BILIRUBIN - TOTAL 1.17 mg/dL (0.2-1.3); CALC OSMOLALITY 288 mosm/kg (275-300); CALCIUM 9.8 mg/dL (8.5-10.1); CARBON DIOXIDE 18.5 mmol/L (21.0-32.0); CHLORIDE - SERUM 104 mmol/L (98-107); CREATININE - SERUM 1.1 mg/dL (0.6-1.3); POTASSIUM - SERUM 3.1 mmol/L (3.5-5.1); PROTEIN - SERUM 9.2 g/dL (6.4-8.2); SODIUM 143 mmol/L (136-145); UREA NITROGEN 12 mg/dL (7-18); eGFR NON AFRICAN AMERICAN 71 mL/min (90-120)
[2018-07-25 13:56] LABS: GLUCOSE 170 mg/dL (74-106)
--- NOTE | 2018-07-25 14:00 | NUR ---
ASSUMED CARE OF PATIENT RESTING FAMILY AT BEDSIDE, NIPRIDE DRIP INFUSING, TITRATING PER PROTOCOL.
[2018-07-25 14:06] LABS: AMYLASE - SERUM 76 U/L (25-115); CKMB 1.2 U/L (0.0-3.6); CREATINE KINASE 35 UL (21-232); LIPASE 137 U/L (73-393); MAGNESIUM - SERUM 1.2 mg/dL (1.8-2.4)
[2018-07-25 14:08] LABS: TROPONIN-I < 0.017 ng/mL (0.000-0.060)
--- NOTE | 2018-07-25 15:52 | NUR ---
STILL HYPERTENSIVE, PRIVIDER NOTIFIED, NIPRIDE BEING TITRATED PER PROTOCOL, PT A+O X3, CALL LIGHT WITHIN REACH.
[2018-07-25 17:09] LABS: APTT 29.4 SECONDS (22.8-39.4); INR 1.15 (0.85-1.17); PROTIME 14.2 SECONDS (11.6-15.0)
[2018-07-25 17:10] LABS: D-DIMER-QUANTITATIVE 1.13 ug/mLFEU (0.20-0.54)
--- NOTE | 2018-07-25 18:11 | NUR ---
BACK FROM CT, EKG BEING REPEATED.
--- NOTE | 2018-07-25 19:35 | NUR ---
ATTEMPTED TO CALL REPORT, THEY SAID THE NURSE WILL CALL ME BACK SHE WAS IN A ROOM.
--- NOTE | 2018-07-25 20:08 | NUR ---
ATTEMPTED TO CALL REPORT, THEY STATED THEY ARE SHORT STAFFED AND NOT ABLE TO TAKE REPORT AT THIS TIME, WILL CALL ME BACK.
--- NOTE | 2018-07-25 21:30 | NUR ---
RECEIVED PATIENT FROM ER, AAOX3. AMBULATES FROM STRETCHER TO BED WITH ONE PERSON ASSIST. NIPRIDE GTT INFUSING @ 1.5 MCG, PUMP RE-PROGRAMMED TO CORRECT WEIGHT, SO ML/HR EQUALS 13. SBP READING 120S AT THIS TIME. ADMISSION ASSESSMENT COMPLETE, SEE FLOWSHEET. WILL MONITOR CLOSELY THROUGH OUT THE NIGHT.
[2018-07-26] VITALS (89 sets, daily range): BP systolic 108–208; BP diastolic 66–138; Ht 170.2 cm; Wt 65.3 kg
--- NOTE | 2018-07-26 01:00 | NUR ---
NO ACUTE CHANGES NOTED. VSS. PATIENT SLEEPING. WILL CTM.
--- NOTE | 2018-07-26 03:00 | NUR ---
REASSESSMENT COMPLETED, SEE FLOWSHEET.
[2018-07-26 04:04] LABS: BASOPHILS 0.1 % (0-2); EOSINOPHILS 0.9 % (0-7); HEMATOCRIT 34.4 % (42.0-54.0); HEMOGLOBIN 11.5 g/dL (13.5-17.5); IMMATURE GRANULOCYTES 0.4 % (0-5); LYMPHOCYTES 18.1 % (15-50); MCH 30.2 pg (26.0-34.0); MCHC 33.4 g/dL (31.0-37.0); MCV 90.3 fL (80.0-100.0); MEAN PLATELET VOLUME 11.8 fL (7.4-10.4); MONOCYTES 12.4 % (2-11); NEUTROPHILS 68.1 % (40-80); PLATELET COUNT 111 10x3/uL (130-400); RBC 3.81 10x6/uL (4.20-6.10); RDW 17.2 % (11.5-14.5)
[2018-07-26 04:19] LABS: ALBUMIN 3.3 g/dL (3.4-5.0); ANION GAP 15.5 mmol/L (8-16); BILIRUBIN - TOTAL 0.74 mg/dL (0.2-1.3); CALCIUM 8.7 mg/dL (8.5-10.1); CARBON DIOXIDE 26.6 mmol/L (21.0-32.0); CREATININE - SERUM 1.1 mg/dL (0.6-1.3); POTASSIUM - SERUM 4.1 mmol/L (3.5-5.1); PROTEIN - SERUM 7.5 g/dL (6.4-8.2)
--- NOTE | 2018-07-26 05:00 | NUR ---
PATIENT APPEARS TO BE RESTING COMFORTABLY. VSS. WILL CTM.
--- NOTE | 2018-07-26 07:00 | NUR ---
INITIAL ASSESSMENT COMPLETE PT RESTING WITH EYES CLOSED AWAKENS TO TACTILE STIMULI. PT ORIENTED FOLLOWS COMMANDS EQUAL STRENGTH NOTED ALPESH. AUTHORIZATION MANAGER WITH ALARMS ON AND AUDIBLE READING SR NO ECTOPY AT THIS TIME. PT IS ON NIPRIDE GTT FOR HYPERTENSION TITRATE NEEDED, SEE IV FLOWSHEET. RESP EVEN AND NONLABORED BREATH SOUNDS CLEAR WITH O2 SAT 97%. SKIN WARM AND DRY PPP. RAINEY DRAINING CLEAR YELLOW URINE. BED LOW POSITION CALL LIGHT IN REACH.
--- NOTE | 2018-07-26 09:00 | NUR ---
ANSWERED CALL LIGHT PT WANTS TO GET UP TO BSC TO URINATE INFORMED PT HE HAD A RAINEY CATHETER AND SOMETIMES THEY ARE IRRITATING AND GIVE THE FEELING OF NEEDING TO URINATE. HE VERBALIZES UNDERSTANDING
--- NOTE | 2018-07-26 10:26 | NUR ---
ANSWERED PTS CALL LIGHT HE IS COMPLAINING OF BAD HEADACHE. 7 ON 1-10 SCALE MEDICATED WITH 2MG MORPHINE AND ZOFRAN PER PRN ORDERS. NIPRIDE CONTINUES
--- NOTE | 2018-07-26 10:58 | NUR ---
DR NOGUERA AT BEDSIDE ROUNDS NEW ORDERS NOTED
--- NOTE | 2018-07-26 13:05 | NUR ---
FAMILY AT BEDSIDE FOR VISITATION
--- NOTE | 2018-07-26 14:20 | NUR ---
ANSWERED CALL LIGHT PT SAYS "IM SUPPOSED TO BE GETTING ATIVAN BUT I HAVENT GOTTEN IT TODAY" INFORMED PT I WOULD LOOK UP. IT IS ON HIS EMAR PRN PT SAYS HE IS FEELING ANXIOUS AND NERVOUS MEDICATED WITH 0.5 MG ATIVAN PO
--- NOTE | 2018-07-26 15:15 | NUR ---
REASSESSMENT MADE PT STATES ATIVAN HELPED. NIPRIDE CONTINUES BUT ABLE TO TITRATE DOWN DR NOGUERA STARTED PO MEDS AND CLONIDINE PATCH ARRIVED FROM PHARMACY. TAVERN OPERATOR READING SR NO ECTOPY AT THIS TIME. PT ABLE TO TURN AND REPOSITION SELF INDEPENDENTLY. CALL LIGHT IN REACH AND PT DENIES NEEDS AT THIS TIME
--- NOTE | 2018-07-26 18:00 | NUR ---
PT C/O HEADACHE ASKING FOR MORPHINE SHOT B/P DOWN MUCH BETTER TITRATED DOWN TO 1.0 MCG/KG. MEDICATED WITH MORPHINE 2 MG IVP. HE STATES HIS PAIN IS A 4 ON 1-10 SCALE.HOPEFULLY WILL BE ABLE TO GET NIPRIDE OFF. INFORMED PT HEADACHE SHOULD START DECREASING SINCE HIS B/P IS WITHIN NORMAL RANGE AND NIPRIDE DECREASED. HE VERBALIZED GOOD UNDERSTANDING
--- NOTE | 2018-07-26 18:29 | NUR ---
PT RESTING WITH EYES CLOSED NIPRIDE GTT DOWN TO 1MCG
[2018-07-27] VITALS (69 sets, daily range): BP systolic 107–194; BP diastolic 49–106
[2018-07-27 03:11] LABS: BASOPHILS 0.3 % (0-2); EOSINOPHILS 5.1 % (0-7); HEMATOCRIT 33.2 % (42.0-54.0); IMMATURE GRANULOCYTES 0.3 % (0-5); MCH 30.6 pg (26.0-34.0); MCHC 33.1 g/dL (31.0-37.0); MCV 92.2 fL (80.0-100.0); MEAN PLATELET VOLUME 11.8 fL (7.4-10.4); MONOCYTES 12.6 % (2-11); NEUTROPHILS 55.7 % (40-80); PLATELET COUNT 106 10x3/uL (130-400); RDW 17.7 % (11.5-14.5); WBC 7.1 10x3/uL (4.8-10.8)
[2018-07-27 03:20] LABS: ANION GAP 15.8 mmol/L (8-16); CALCIUM 8.2 mg/dL (8.5-10.1); CARBON DIOXIDE 25.6 mmol/L (21.0-32.0); CREATININE - SERUM 1.1 mg/dL (0.6-1.3)
[2018-07-27 03:22] LABS: POTASSIUM - SERUM 3.4 mmol/L (3.5-5.1)
--- NOTE | 2018-07-27 07:00 | NUR ---
INITIAL ASSESSMENT COMPLETE ALERT AND ORIENTED FOLLOWS COMMANDS EQUAL STRENGTH CM WITH ALARMS ON AND AUDIBLE READING SR 70'S WITHOUT ECTOPY, HYPERTENSIVE ON NIPRIDE GTT TO RIGHT AC PIV WITHOUT DIFFICULTY. SEE IV FLOWSHEET. RESP EVEN NONLABORED CLEAR TO AUSCULTATE ON ROOM AIR WITH O2 SAT OF 97%. SKIN WARM AND DRY PPP. BED IN LOW POSITION SIDE RAILS UP X 3 FOR BED MOBILITY AND SAFETY. PT HAS CALL LIGHT IN HAND. NO DISTRESS OR C/O AT THIS TIME.
--- NOTE | 2018-07-27 08:35 | NUR ---
ANSWERED PTS CALL LIGHT "I NEED MY PAIN SHOT". ASKED PAIN ASSESSMENT HE SAYS HEADACHE 7-9 ON 1-10 SCALE. MEDICATED WITH PRN MORPHINE 2 MG SIVP.
--- NOTE | 2018-07-27 10:15 | NUR ---
ANSWERED PTS CALL LIGHT HE WANTS HIS PAIN SHOT. INFORMED IT WAS NOT TIME YET.
--- NOTE | 2018-07-27 11:00 | NUR ---
ANSWERED PTS CALL LIGHT HE AGAIN IS ASKING FOR PAIN SHOT. HE STATES I KNOW I CAN HAVE IT I HAD IT AT 0730. INFORMED PT THAT NO IT WAS GIVEN AT 0835. AND HE CAN NOT HAVE UNTIL 1230. HE LOUDLY SAID "OH MY GOD". ASKED WHAT WAS PAIN LEVEL HE SAID 10. INFORMED HIS B/P WAS LOOKING BETTER AND THE NIPRIDE WAS BEING TITRATED DOWN AND HE SHOULD GET SOME RELIEF BUT THAT IT WAS TOO SOON FOR MORPHINE.
--- NOTE | 2018-07-27 11:10 | NUR ---
WENT OVER TIME MORPHINE PULLED FROM [facility] AND TIME OF SCAN ON EMAR HE VERBALIZED UNDERSTANDING. INFORMED PT HE WOULD NEED TO SPEAK WITH PHYSICIAN ABOUT MEDICATIONS. HE SAID "SO WHAT I CANT HAVE IT UNTIL 1230" INFORMED IT WOULD BE AVAILABLE AT 1235.
--- NOTE | 2018-07-27 13:21 | NUR ---
ANSWERED PTS CALL LIGHT HE WANTS HIS PAIN SHOT. MEDICATED WITH MORPHINE 2 MG PER PRN ORDERS
--- NOTE | 2018-07-27 13:52 | NUR ---
ANSWERED PTS CALL LIGHT HE STATES "I KNOW WE HAD PROBLEMS EARLIER WITH THE PAIN SHOT SO I JUST WANTED YOU TO KNOW I HAVE ANOTHER PRESCRIPTION THAT IS DUE AT 230. ASKED PT WHICH MED HE WAS TALKING ABOUT SINCE HE WAS JUST GIVEN MORPHINE 30 MINUTES AGO. HE SAID MY ATIVAN. INFORMED PT THAT ATIVAN WAS FOR ANXIETY AND WAS ORDERED NEEDED NOT SCHEDULED AND TO GIVE MORPHINE TIME TO WORK IT MAY HELP
--- NOTE | 2018-07-27 14:01 | NUR ---
DR LIRA HERE ROUNDS
--- NOTE | 2018-07-27 16:33 | NUR ---
DR LIRA STILL ON UNIT ROUNDING ON PATIENTS SPOKE WITH HIM ABOUT PTS B/P 164/85 1.5 HOUR AFTER NORVASC. HE SAID HES OK WITH THAT BP IT WILL TAKE A LITTLE MORE TIME
--- NOTE | 2018-07-27 18:51 | NUR ---
URINE FOR DRUG SCREEN AND RAINEY CATH PULLED PT TOLERATED WELL. URINAL IM REACH
--- NOTE | 2018-07-27 19:41 | NUR ---
PT RECEIVED WITH EYES OPEN WATCHING TV. PT REQUEST NEW GOWN AND RECEIVED. ASSIST GIVEN WITH GOWN. UNUSED ELECTRODES REMOVED. NO OTHER NEEDS OR CONCERNS MADE KNOWN. CALL LIGHT IN REACH.
[2018-07-27 19:46] LABS: UDS - AMPHET NEGATIVE QUAL (NEGATIVE); UDS - BARB NEGATIVE QUAL (NEGATIVE); UDS - BENZO NEGATIVE QUAL (NEGATIVE); UDS - COCAINE NEGATIVE QUAL (NEGATIVE); UDS - OPIATE POSITIVE QUAL (NEGATIVE); UDS - PCP NEGATIVE QUAL (NEGATIVE); UDS - THC POSITIVE QUAL (NEGATIVE)
--- NOTE | 2018-07-27 21:15 | NUR ---
PT RECEIVED MEDICATIONS PER MAR, TOLERATED WELL. NO NEEDS OR CONCERNS MADE KNOWN. WILL CONTINUE TO OBSERVE.
[2018-07-28] VITALS (20 sets, daily range): BP systolic 127–172; BP diastolic 59–92
--- NOTE | 2018-07-28 01:35 | NUR ---
PT RESTING WITH EYES CLOSED AND CHEST RISING. NO S/S OF DISTRESS. CALL LIGHT IN REACH. WILL CONTINUE TO OBSERVE.
--- NOTE | 2018-07-28 03:40 | NUR ---
REASSESSMENT COMPLETED, SEE FLOW SHEET. NO CHANGES NOTED
--- NOTE | 2018-07-28 06:19 | NUR ---
PT RECEIVED AM MEDICATION AND TOLERATED WELL. EASILY AWOKEN TO VERBAL STIMULI. CALL LIGHT IN REACH. WILL CONTINUE TO OBSERVE.
--- NOTE | 2018-07-28 07:00 | NUR ---
REPORT RECEIVED ASSESSMENT COMPLETE. PT SLEEPING AWAKENS TO VERBAL STIMULI ORIENTED. CM WITH ALARMS ON AND AUDIBLE READING SR NO ECTOPY.PT HAS BEEN HYPERTENSIVE NIPRIDE GTT OFF 07/27/18 NOW ON ORAL MEDICATIONS RESP EVEN AND NONLABORED ON ROOM AIR WITH O2 SAT 96% ABD SOFT NONTENDER ACTIVE BS. SKIN WARM AND DRY PPP BED IN LOW POSITION SIDE RAILS UP TIMES 3 FOR BED MOBILITY AND SAFETY CALL LIGHT IN REACH.
--- NOTE | 2018-07-28 09:03 | NUR ---
Nutrition follow-up: Diet: Low sodium PO intake 100% of most meals Labs reviewed Wt: 143# RDN following.
--- NOTE | 2018-07-28 11:40 | NUR ---
DR SORAYA BECKER
--- NOTE | 2018-07-28 12:20 | NUR ---
THOUGHT PTS ATIVAN WAS DUE AT 1300 BUT ITS 1500 SO RETURNED TO [facility].
--- NOTE | 2018-07-28 15:00 | NUR ---
ANSWERED CALL LIGHT PT REQUESTING SOMETHING TO DRINK AND ASKING IF ROOM HAS BEEN ASSIGNED FOR TRANSFER. INFORMED HIM NOT YET THAT FLOOR WAS FULL AND WHEN PATIENTS WERE D/C HOME AND ROOM CLEANED AND MADE AVAILABLE HE WOULD BE TRANSFERRED OUT. PT VERBALIZES UNDERSTANDING
--- NOTE | 2018-07-28 17:24 | NUR ---
PTS DAUGHTER CALLED WANTING TO TALK TO PT SHE HAS BEEN SICK AND NOT ABLE TO CHECK ON HIM. MADE SURE PT WAS OK WITH PHONE IN ROOM HE SAID YES PLEASE. PHONE PLACED IN ROOM AND DAUGHTER TRANSFERRED
--- NOTE | 2018-07-28 18:10 | NUR ---
ADMISSION HISTORY COMPLETED MUCH ABLE SINCE THIS NURSE DID NOT ASSUME PT UNTIL 07/26/18 0700. PT WAS ADMITTED TO ICU ROOM 2303 ON 07/25/18 ON FIRE CODE INSPECTOR BEFORE MIDNIGHT. ADMISSION ASSESSMENT ENTERED LATE ENTRY 07/26/18 0700
--- NOTE | 2018-07-28 18:12 | MORECARE ---
CASE MANAGEMENT DISCHARGE SUMMARY PATIENT: GLENN MARTINEZ UNIT: [id number] ADM DATE: 07/25/18 AGE: 63 : 54 SEX: M ROOM/BED: D.2303 AUTHOR: DILEEP COPELAND PHYSICIAN: REFERRING PHYSICIAN: MITUL NOGUERA MD DATE OF SERVICE: 07/28/18 Discharge Plan Patient Name: GLENN MARTINEZ [facility] [facility] 1955 Planned Disposition: Home with Home Health Anticipated Discharge Date: Discharge Date: Expected LOS: Initial Reviewer: [email or web address] Initial Review Date: 07/28/2018 Generated: 07/28/18 7:12 pm DCPIA - Discharge Planning Initial Assessment Updated by [email or web address]: Oksana Hernandes on 07/28/18 6:12 pm * Is the patient Alert and Oriented? Yes * How many steps to enter\exit or inside your home? * PCP TIERA * Pharmacy [facility] * Preadmission Environment Home Alone * ADLs Independent * Equipment None * List name and contact numbers for known caregivers / representatives who currently or will assist patient after discharge: SELENA MARTINEZ - DAUGHTER - [phone] * Verbal permission to speak to the caregivers and representatives has been obtained from the patient. Yes * Community resources currently utilized Home Health * Please name any agencies selected above. [facility] * Additional services required to return to the preadmission environment? No * Can the patient safely return to the preadmission environment? Yes * Has this patient been hospitalized within the prior 30 days at any hospital? No Patient Name: GLENN MARTINEZ Page [id number] at 1812 All edits/amendments must be made on the electronic document DICTATION DATE: 07/28/181811 CUSTOMER SERVICES MANAGER: ESAU 07/28/181811 RPT#: [id number] DC DATE: STATUS: ADM IN [facility] [address] [place] [address] END OF REPORT
--- NOTE | 2018-07-28 18:20 | MORECARE ---
CASE MANAGEMENT DISCHARGE SUMMARY PATIENT: GLENN MARTINEZ UNIT: [id number] ADM DATE: 07/25/18 AGE: 63 : 53 SEX: M ROOM/BED: D.2303 AUTHOR: DINORAH,DOC PHYSICIAN: REFERRING PHYSICIAN: MITUL NOGUERA MD DATE OF SERVICE: 07/28/18 Discharge Plan Patient Name: GLENN MARTINEZ Facility: [facility]:[place] : 1955 Planned Disposition: Home with Home Health Anticipated Discharge Date: Discharge Date: Expected LOS: Initial Reviewer: [email or web address] Initial Review Date: 07/28/2018 Generated: 07/28/18 7:19 pm Comments DCP- Discharge Planning Updated by [email or web address]: Oksana Hernandes on 07/28/18 5:[address] Patient Name: GLENN MARTINEZ Admission Status: ER Accout number: [id number] Admission Date: 07-25-2018 : 1955 Admission Diagnosis:ESSENTIAL (PRIMARY) HYPERTENSION Attending: MITUL NOGUERA Current LOS: 3 Anticipated DC Date: Planned Disposition: Home with Home Health Primary Insurance: [employer] CHOICE PPO [facility] Discharge Planning Comments: CM met with patient at bedside about discharge planning /needs. Patient states he lives alone. Patient states he plans to discharge to his home. States he will have family transport him home upon discharge. Patient states [facility] with [facility] and plans to resume care with them upon discharge. Patient states his home environment is safe.Denies any discharge needs or concerns at this time. CM will continue to follow and assist as needed with discharge planning / needs. Wastewater Plant Operator: kOsana Hernandes DCPIA - Discharge Planning Initial Assessment Updated by [email or web address]: Oksana Hrenandes on 07/28/18 6:12 pm * Is the patient Alert and Oriented? Yes * How many steps to enter\exit or inside your home? * PCP TIERA * Pharmacy [facility] * Preadmission Environment Home Alone * ADLs Independent * Equipment None * List name and contact numbers for known caregivers / representatives who currently or will assist patient after discharge: SELENA MARTINEZ - DAUGHTER - [phone] * Verbal permission to speak to the caregivers and representatives has been obtained from the patient. Yes * Community resources currently utilized Home Health * Please name any agencies selected above. [facility] * Additional services required to return to the preadmission environment? No * Can the patient safely return to the preadmission environment? Yes * Has this patient been hospitalized within the prior 30 days at any hospital? No Last DP export: 07/28/18 5:12 p Patient Name: GLENN MARTINEZ Page [phone] at 1820 All edits/amendments must be made on the electronic document DICTATION DATE: 07/28/181818 MACHINE CLEANER: ESAU 07/28/181818 RPT#: [id number] DC DATE: STATUS: ADM IN [facility] [address] [place] [address] END OF REPORT
--- NOTE | 2018-07-28 19:40 | NUR ---
PT RECEIVED WITH EYES CLOSED AND CHEST RISING. RECEIVEING BREATHING TREATMENT. AWAKENS TO VERBAL STIMULI. VITAL SIGNS STABLE. CALL LIGHT IN REACH. WILL CONTINUE TO OBSERVE.
--- NOTE | 2018-07-28 21:24 | NUR ---
PT ALERT AND ORIENTED. RECEIVED PM MEDICATIONS PER JUL, TOLERATED WELL. WATER AND LEMON SHOALWATER SODA PROVIDED PER REQUEST. WILL CONTINUE TO OBSERVE.
--- NOTE | 2018-07-29 00:09 | NUR ---
PT RESTING WITH EYES CLOSED AND CHEST RISING. NO S/S OF DISTRESS. CALL LIGHT IN REACH. WILL CONTINUE TO OBSERVE.
--- NOTE | 2018-07-29 01:11 | NUR ---
PT RESTING WITH EYES CLOSED AND CHEST RISING. NO S/S OF DISTRESS. VSS. WILL CONTINUE TO OBSERVE
[2018-07-29 03:00] VITALS: BP 159/76
[2018-07-29 07:00] VITALS: BP 156/77
--- NOTE | 2018-07-29 07:15 | NUR ---
SHIFT ASSESSMENT COMPLETED. PT RESTING WITH EYES CLOSED. AROUSES TO VOICE. DENIES HAVING PAIN AT THIS TIME. HAS 20 PIV ON RAC SL. LUNGS CLEAR THROUGH OUT. BS ACTIVE X 4 QUADRANTS. PERIPHERAL PULSES PALPABLE. ON ROOM AIR. SHIFT ASSESSMENT COMPLETED. EMPTIED 350ML OF YELLOW URINE FROM URINAL AT THIS TIME. SAFETY MEASURES IN PLACE. ICE PROVIDED PER PT REQUEST. WILL CONTINUE TO MONITOR.
[2018-07-29] MEDS ORDERED: LOPRESSOR25 MG PO (08:41)
[2018-07-29] MEDS ORDERED: NORVASC5 MG PO (08:41)
[2018-07-29] MEDS ORDERED: COZAAR25 MG PO (08:41)
--- NOTE | 2018-07-29 09:15 | NUR ---
AM MEDS GIVEN. R-FOREARM PIV DC'D AT THIS TIME. PT WILL BE DISCHARGE HOME TODAY.
--- NOTE | 2018-07-29 10:17 | NUR ---
DISCHARGE INTRUCTIONS GIVEN TO PATIENT. DISCHARGED HOME AT THIS TIME. AMBULATED SELF TO PERSONAL VEHICLE. PERSONAL BELONGINGS SENT WITH PATIET.
--- NOTE | 2018-07-29 10:31 | MORECARE ---
CASE MANAGEMENT DISCHARGE SUMMARY PATIENT: GLENN MARTINEZ UNIT: [id number] ADM DATE: 07/25/18 AGE: 63 : 54 SEX: M ROOM/BED: D.2303 AUTHOR: DINORAH,DOC PHYSICIAN: REFERRING PHYSICIAN: MITUL NOGUERA MD DATE OF SERVICE: 07/29/18 Discharge Plan Patient Name: GLENN MARTINEZ Facility: [facility]:[place] : 1955 Planned Disposition: Home with Home Health Anticipated Discharge Date: Discharge Date: 07/29/2018 Expected LOS: Initial Reviewer: [email or web address] Initial Review Date: 07/28/2018 Generated: 07/29/18 11:30 am Comments DCP- Discharge Planning Updated by [email or web address]: Oksana Hernandes on 07/29/18 9:[address] CM met with patient explained and served [facility] 07/29/18 0955. Patient denies any discharge needs. CM will continue to follow and assist with discharge planning needs. DCP- Discharge Planning Updated by [email or web address]: Oksana Hernandes on 07/28/18 5:[address] Patient Name: GLENN MARTINEZ Admission Status: ER Accout number: [id number] Admission Date: 07-25-2018 : 1955 Admission Diagnosis:ESSENTIAL (PRIMARY) HYPERTENSION Attending: MITUL NOGUERA Current LOS: 3 Anticipated DC Date: Planned Disposition: Home with Home Health Primary Insurance: [employer] CHOICE PPO [facility] Discharge Planning Comments: CM met with patient at bedside about discharge planning /needs. Patient states he lives alone. Patient states he plans to discharge to his home. States he will have family transport him home upon discharge. Patient states he [facility] with [facility] and plans to resume care with them upon discharge. Patient states his home environment is safe.Denies any discharge needs or concerns at this time. CM will continue to follow and assist as needed with discharge planning / needs. Virology Teacher: Oksana Hernandes DCPIA - Discharge Planning Initial Assessment Updated by [email or web address]: Oksana Hernandes on 07/28/18 6:12 pm * Is the patient Alert and Oriented? Yes * How many steps to enter\exit or inside your home? * PCP TIERA * Pharmacy [facility] * Preadmission Environment Home Alone * ADLs Independent * Equipment None * List name and contact numbers for known caregivers / representatives who currently or will assist patient after discharge: SELENA MARTINEZ - DAUGHTER - [phone] * Verbal permission to speak to the caregivers and representatives has been obtained from the patient. Yes * Community resources currently utilized Home Health * Please name any agencies selected above. [facility] * Additional services required to return to the preadmission environment? No * Can the patient safely return to the preadmission environment? Yes * Has this patient been hospitalized within the prior 30 days at any hospital? No Coverage Notice Reviewer: [id number] Sierra Hernandes Notice Issued Date-Time: 07/29/2018 9:55 Notice Type: IM Discharge Notice Notice Delivered To: Patient Relationship to Patient: Self Drop Press Hand Name: Delivery Method: HAND - Hand Delivered Manisha Days: Prior Verbal Notification: Recipient Understood Notice: Yes Recipient Signature: Yes Med Rec Note Co-signed by Attending: Coverage Notice Comment: Last DP export: 07/28/18 5:20 p Patient Name: GLENN MARTINEZ Page [phone] at 1031 All edits/amendments must be made on the electronic document DICTATION DATE: 07/29/18 1030 TOBACCO BUYER: ESAU 07/29/18 1030 RPT#: [id number] DC DATE:07/29/18 STATUS: DIS IN [place] [id number] [place] [address] END OF REPORT
== END 2018-07-29 10:19 | disposition home health service (06) | DRG 305 ==
LOC: D.ER 12:09 → D.ICU 18:28
PROVIDERS: Family Medicine; Internal Medicine Nephrology; ADMIT Emergency Medicine; ATTEND Emergency Medicine
DX: I10 Essential (primary) hypertension (principal); G81.91 Hemiplegia, unspecified affecting right dominant side; F17.203 Nicotine dependence unspecified, with withdrawal; G89.29 Other chronic pain; D64.9 Anemia, unspecified; M19.011 Primary osteoarthritis, right shoulder; K21.9 Gastro-esophageal reflux disease without esophagitis; G40.909 Epilepsy, unspecified, not intractable, without status epilepticus; F41.9 Anxiety disorder, unspecified; E03.9 Hypothyroidism, unspecified; J44.9 Chronic obstructive pulmonary disease, unspecified; Z91.14 Patient's other noncompliance with medication regimen

== ENCOUNTER 2018-10-05 17:10 | Observation (INO) | payer MEDICARE ==
[2018-10-05] VITALS (7 sets, daily range): BP systolic 170–213; BP diastolic 107–133; BMI 24.3
[~2018-10-05] VITALS: Ht 170.2 cm; Wt 70.6 kg
--- NOTE | ~2018-10-05 | HEMODYNAMI ---
PATIENT:GLENN MARTINEZ MEDICAL RECORD: [id number] : 53 LOC[id number] ADMISSION DATE: 10/05/18 Generatedon:10/06/20189:45 Patient name: GLENN MARTINEZ Patient #: [id number] SSN: : 1955 Date of study: 10/06/2018 Page: Of Hemodynamic Procedure Report Patient Data Patient Demographics Procedure consent was obtained First Name: GLENN Gender: Male Last Name: MICHELLE : 1955 [facility] Initial: VENESSA Age: 63 year(s) Patient #: [id number] Race: Unknown Additional ID: [id number] Contact details Address: [address] [place] [place] [address] rd State: [place] City: [facility] [place] Zip code: [address] Admission Admission Data Admission Date: 10/05/2018 Admission Time: 19:59 Room #: D.2128 Lab Results Lab Result Date: 10/06/2018 Lab Result Time: 0:00 Biochemistry Name Units Result Min Max BUN mg/dl 15 --(--*-)-- 7 18 Creatinine mg/dl 1 --(--*-)-- 0.6 1.3 CBC Name Units Result Min Max Hemoglobin g/dl 13.3 -*(----)-- 13.5 17.5 Procedure Procedure Types Cath Procedure Diagnostic Procedure [facility] w/Coronaries PCI Procedure Coronary Stent Coronary Stent Initial Procedure Description Procedure Date Procedure Date: 10/06/2018 Procedure Start Time: 9:26 Procedure End Time: 9:42 Procedure Staff Name Function Jacobo Gilliland MD Performing Physician Sheng Guillen RT Monitor Guadalupe Torres RT Scrub Parker Valentin RN Nurse Procedure Data Cath Procedure Fluoroscopy Diagnostic fluoroscopy Total fluoroscopy Time: 2.3 time: 2.3 min min Diagnostic fluoroscopy Total fluoroscopy dose: 525 dose: 525 mGy mGy Contrast Material Contrast Material Type Amount (ml) Isovue 300 85 Entry Location Entry Primary Successful Side Size Upsize Upsize Entry Closure Succes sful Closure Location (Fr) 1 (Fr) 2 (Fr) Remarks Device Remarks Femoral Right 5 Fr 6 Fr Exoseal artery Short Diagnostic catheters Device Type Used For End Catheter Placement MULTIPACK JL 4.0 5Fr Left Coronary catheter Angiography MULTIPACK 3DRC 5Fr Right Coronary catheter Angiography MULTIPACK Pigtail 5 Fr LV Angiography catheter Procedure Complications No complications Procedure Medications Medication Administration Route Dosage 0.9% NaCl I.V. 100 ml/hr Oxygen etCO2 Nasal cannula 2 l/min Heparin Flush Bag added to field 2 bags (1000units/500ml NS) Lidocaine 2% added to field 20 Versed I.V. 2 mg Fentanyl I.V. 100 mcg Versed I.V. 1 mg Heparin Bolus I.V. 5000 units Hemodynamics Rest HGB: 13.3 (g/dl) Heart Rate: 72 (bpm) Pressure Samples Time Site Value (mmHg) Purpose Heart Use Rate(bpm) 9:29 LV 135/7,8 EDP 75 9:30 AO 141/79(106) Pullback 76 Gradients Valve Time Site Site 2 Mean SEP/DFP Peak To Heart Use 1 (mmHg) (sec/min) Peak Rate (mmHg) (bpm) Aortic 9:30 LV AO 76 141/79(106) Snapshots Pre Cath Intra NCS Post Cath Vital Signs Time Heart Resp SPO2 etCO2 NIBP (mmHg) Rhythm Pain Sedation Rate (ipm) (%) (mmHg) Status Level (bpm) 9:01:53 72 18 98 21.7 147/95(122) NSR 0 (11) 10(A) , No pain 9:06:25 76 20 97 23.2 137/99(115) NSR 0 (11) 10(A) , No pain 9:10:19 72 19 98 22.5 137/89(117) NSR 0 (11) 10(A) , No pain 9:14:12 75 32 98 24 130/87(106) NSR 0 (11) 10(A) , No pain 9:18:04 80 18 98 23.2 138/90(116) NSR 0 (11) 10(A) , No pain 9:21:57 75 17 98 24.7 139/91(116) NSR 0 (11) 10(A) , No pain 9:25:51 75 18 98 24 129/90(103) NSR 0 (11) 10(A) , No pain 9:30:21 75 19 98 25.5 142/89(118) NSR 0 (11) 10(A) , No pain 9:34:14 76 15 99 25.5 147/96(119) NSR 0 (11) 10(A) , No pain 9:38:08 74 19 97 21.7 140/92(126) NSR 0 (11) 10(A) , No pain 9:43:17 77 11 98 21 126/31(95) NSR 0 (11) 10(A) , No pain Medications Time Medication Route Dose Verified Delivered Reason Notes Effectiveness by by 9:03:20 0.9% NaCl I.V. 100 Parker Parker Per physician ml/hr Homero Valentin RN RN 9:03:30 Oxygen etCO2 2 Parker Parker for low 02 sats Nasal l/min Homero Valentin cannula RN RN 9:03:41 Heparin Flush added 2 Parker Parker used for Bag to bags Homero Valentin procedure (1000units/500ml RN RN NS) 9:03:50 Lidocaine 2% added 20ml Parker Parker for local to vial Homero Valentin anesthetic RN RN 9:23:26 Versed I.V. 2 mg Parker Parker for sedation Homero Valentin RN RN 9:23:35 Fentanyl I.V. 100 Parker Parker for sedation mcg Homero Valentin RN RN 9:25:21 Versed I.V. 1 mg Parker Parker for sedation Homero Valentin RN RN 9:34:53 Heparin Bolus I.V. 5000 Parker Parker for units Homero Valentin anticoagulation RN travel counselor automobile [employer] Log Time Note 8:35:35 Diagnostic Cath Status : Elective 8:36:01 Sheng Guillen RT(R) sent for patient. Start room use. 8:36:02 Time tracking: Regular hours (M-F 7:00 - 5:00) 8:36:06 Plan of Care:Hemodynamics will remain stable., Cardiac rhythm will remain stable., Comfort level will be maintained., Respiratory function will remain adequate., Patient/ family verbilizes understanding of procedure., Procedure tolerated without complication., Recovers from procedure without complications.. 8:48:15 Patient received from Med II to [facility] 2 Alert and oriented. Tansferred to table in Supine position. 8:48:16 Warm blankets applied, and josue hugger turned on for patient comfort. 8:48:16 Correct patient and procedure confirmed by team. 8:48:18 Signed procedure consent form obtained from patient. 8:48:19 ECG and BP/O2 sat monitors applied to patient. 9:00:53 Vital chart was started 9:00:54 Baseline sample Acquired. 9:00:57 Rhythm: sinus rhythm 9:00:59 Full Disclosure recording started 9:01:18 H&P Date Dictated: 10/05/2018 Within 30 days and on chart.. 9:01:20 Pre-procedure instructions explained to patient. 9:01:41 Pre-op teaching completed and patient verbalized understanding. 9:01:47 Family unavailable. 9:01:49 Patient NPO since Midnight. 9:02:06 Is the patient allergic to Iodine/contrast media? No. 9:02:10 Is patient on blood thinner?Yes 9:02:13 ACC The patient was administered the following blood thiners within the last 24 hours: ACCPlavix 9:02:16 Patient diabetic? No. 9:02:17 ----Pre-sedation anethsthesia assessment.---- 9:02:19 Previous problem with sedation/anesthesia? No ? 9:02:21 Snore? No 9:02:24 Sleep apnea? No 9:02:25 Deviated septum? No 9:02:28 Opens mouth fully? Yes 9:02:34 Sticks out tongue? Yes 9:02:37 Airway obstruction? No ? 9:02:47 Dentures? No ? 9:02:52 Pre procedure: right dorsailis pedis pulse 2+ Normal; easily identifiable; not easily obliterated 9:02:55 Patient pain scale 0/10 ?. 9:03:00 IV patent on arrival in left antecubital with 0.9% NaCl at O. 9:03:20 0.9% NaCl 100 ml/hr I.V. was administered by Parker Valentin RN; Per physician; 9:03:20 Lab Result : BUN 15 mg/dl 9:03:20 Lab Result : Hemoglobin 13.3 g/dl 9:03:20 Lab Result : Creatinine 1 mg/dl 9:03:24 Lab results completed and on chart. 9:03:27 Right groin area was prepped with chlora-prep and draped in sterile fashion 9::28 Alarms reviewed by R. N. 9:: Sharps counted by scrub and verified by R.N. 9:03:30 Oxygen 2 l/min etCO2 Nasal cannula was administered by Parker Valentin RN; for low 02 sats; 9::41 Heparin Flush Bag (1000units/500ml NS) 2 bags added to field was administered by Parker Valentin RN; used for procedure; 9::50 Lidocaine 2% 20ml vial added to field was administered by Parker Valentin RN; for local anesthetic; 9:15:19 Physician arrived 9::44 Zero performed for pressure channel P1 9::55 --------ALL STOP TIME OUT------ ::55 Final Timeout: patient, procedure, and site verified with staff and physician. All members of the team are in agreement. 9::56 Right groin site verified by team. 9:23:00 Maximum allowable Isovue 300 dose 300ml. Physician notified. (300ml for normal creatinines. For patients with creatinine of 1.7 or higher multiply weight(kg) x 5 divided by creatinine.) 9:23:04 Fire Safety Assessment: A--An alcohol-based skin anteseptic being used preoperatively., C--Open oxygen or nitrous oxide is being used., D--An ESU, laser, or fiber-optic light is being used. 9:23:07 Physical assessment completed. ASA score P 2 - A patient with mild systemic disease as per Jacobo Gilliland MD. 9:23:11 Sedation plan: IV Moderate Sedation Medication:Versed, Fentanyl 9:23:26 Versed 2 mg I.V. was administered by Parker Valentin RN; for sedation; 9:23:35 Fentanyl 100 mcg I.V. was administered by Parker Valentin RN; for sedation; 9:25:21 Versed 1 mg I.V. was administered by Parker Valentin RN; for sedation; 9:25:47 Use device set Femoral Dx 9:25:48 ACIST Syringe (58913) opened to sterile field. 9:25:48 Bag Decanter (2002S) opened to sterile field. 9:25:48 Medline Cath Pack ([id number]) opened to sterile field. 9:25:49 DIAGNOSTIC WIRE .035 260cm J wire (911080) opened to sterile field. 9:25:50 ACIST Hand Control (50484) opened to sterile field. 9:25:51 ACIST Manifold (18580) opened to sterile field. 9:25:51 DIAGNOSTIC Multipack 5Fr catheter set (RX7594) opened to sterile field. 9:25:53 Tegaderm 4 x 4 (1626W) opened to sterile field. 9:25:54 SHEATH 5FR [place] (TQZ052) opened to sterile field. 9:25:58 Procedure started. 9:26:08 Local anesthetic to right femoral artery with Lidocaine 2% by Jacobo Gilliland MD.INITIAL ACCESS ONLY 9:26:16 A 5 Fr sheath was inserted into the Right Femoral artery 9:26:23 A MULTIPACK JL 4.0 5Fr catheter was advanced over the wire and used for Left Coronary Angiography. 9:26:26 LCA angiography performed. 9:26:48 Catheter removed. 9:26:54 A MULTIPACK 3DRC 5Fr catheter was advanced over the wire and used for Right Coronary Angiography. 9:27:13 RCA angiography performed. 9:28:31 Catheter removed. 9:28:37 A MULTIPACK Pigtail 5 Fr catheter was advanced over the wire and used for LV Angiography. 9:28:41 LV angiography performed. 9:29:48 LV gram done using TAYLOR 9:30:19 EF : 45 % 9:30:27 Catheter removed. 9:32:46 SHEATH 6FR [place] (CBY634) opened to sterile field. 9:32:46 INFLATOR Merit BasixCompak (MJ1605) opened to sterile field. 9:32:57 Sheath upsized to a 6 Fr Short. 9:32:57 Sheath removed intact; hemostasis achieved with Exoseal to the Right Femoral artery. 9:33:53 GUIDE 6FR HS I catheter (LA6HSI) opened to sterile field. 9:33:58 WHISPER 300cm guide wire ([id number]) opened to sterile field. 9:34:40 6 Fr HS1 guide catheter was inserted over the wire 9:34:53 Heparin Bolus 5000 units I.V. was administered by Parker Valentin RN; for anticoagulation; 9:37:58 WHISPER wire advanced. 9:39:14 EXOSEAL 6Fr (EX600) opened to sterile field. 9:39:59 Procedure type changed to Cath procedure, Diagnostic procedure, LHC, LHC w/Coronaries, PCI procedure, Coronary Stent, Coronary Stent Initial 9:40:14 Place stent Inflation Number: 1 A COBRA RX 3.5 X 12 Stent was prepped and advanced across the Mid RCA. The stent was deployed at 14 KITTY for 0:22 (min:sec). 9:40:35 Stent catheter was removed intact over wire. 9:40:36 Wire removed. 9:40:39 Guide catheter removed. 9:40:55 Procedure ended.(Physican Out) 9:41:00 Fluoroscopy time 02.30 minutes. 9:41:05 Fluoroscopy dose: 525 mGy 9:41:05 Flurop Dose total: 525 9:41:15 Contrast amount:Isovue 300 85ml. 9:41:16 Sharps counted by scrub and verified by R.N. 9:41:17 Insertion/operative site no bleeding no hematoma. 9:41:20 Post-op/insertion site Right Femoral artery dressed using a 4 x 4 and Tegaderm. 9:41:23 Post right femoral artery:stable 9:41:24 Post Procedure Pulses reassessed and unchanged 9:41:27 Post procedure: right dorsailis pedis pulse 2+ Normal; easily identifiable; not easily obliterated. 9:41:36 Post-procedure physical assessment completed. ASA score P 2 - A patient with mild systemic disease as per Jacobo Gilliland MD. 9:41:39 Post procedure rhythm: unchanged. 9:41:41 Post procedure instruction explained to patient.Patient verbalizes understanding. 9:41:41 Procedure and supply charges have been captured, reviewed, submitted and are correct. 9:42:01 Procedure Complication : No complications 9:42:05 Vital chart was stopped 9:42:05 See physician's report for complete and final results. 9:42:07 Report given to PCU. 9:42:10 Patient transfered to PCU with Bed. 9:42:12 Procedure ended. 9:42:12 Full Disclosure recording stopped 9:42:18 End room use (Document Last) Intervention Summary Intervention Notes Time ActionType Lesion and Equipment Action# Pressure Duration Attributes Used 9:40:14 Place stent Mid RCA COBRA RX 1 14 00:22 3.5 X 12 Stent Device Usage Item Name Manufacture Quantity Catalog Hospital Part Current Minimal Lot# / Number Charge Number Stock Stock Serial# Code ACIST Syringe Acist 1 26677 173865 195965 066652 20 (12041) Medical Systems Inc Bag Decanter Microtek 1 2001S 365257 39322 072918 5 () Medical Inc. Medline Cath Medline 1 [id number] 570108 02901 981485 5 Pack ([id number]) DIAGNOSTIC St Jamarcus 1 397284 985998 868523 887308 30 WIRE .035 260cm J wire (594405) ACIST Hand Acist 1 61144 505674 841209 764682 5 Control Medical (39307) Systems Inc ACIST Manifold Acist 1 03734 481601 316047 847831 5 (08755) Medical Systems Inc DIAGNOSTIC Cardinal 1 NM1787 547927 34636 490540 30 Multipack 5Fr Health catheter set (QF8523) Tegaderm 4 x 4 3M 1 1626W 597644 176661 001863 5 (1626W) SHEATH 5FR Terumo 1 REC936 445991 748956 908967 5 [place] (UNJ128) MULTIPACK JL Cardinal 1 292488 5 4.0 5Fr Health catheter MULTIPACK 3DRC Cardinal 1 689377 5 5Fr catheter Health MULTIPACK Cardinal 1 887215 5 Pigtail 5 Fr Health catheter SHEATH 6FR Terumo 1 UDA790 359488 295878 701056 40 [place] (EUC549) INFLATOR Merit Merit 1 JS1613 735633 527606 717227 15 Arrien PharmaceuticalsnhLocal Matters Medical (WO7670) GUIDE 6FR HS I Medtronic 1 LA6HSI 717945 40648 441161 1 catheter (LA6HSI) WHISPER 300cm Clayton 1 [id number] 078755 832209 257833 5 guide wire Vascular ([id number]) EXOSEAL 6Fr Cardinal 1 EX600 164897 944179 637234 10 (EX600) Health COBRA RX 3.5 X Celonova 1 973055 [id number] 270826 0 [id number] 12 stent Biosciences () Signature Audit [place] Stage Time Signature Unsigned Intra-Procedure 10/06/2018 Sheng Guillen RT(R) 9:45:08 AM Signatures Monitor : Sheng Guillen RT Signature : Date : Time : [address] [place] [address]
[~2018-10-05 17:10] MED LIST changes: +COZAAR25 MG PO; +NORVASC5 MG PO
[2018-10-05 17:41] LABS: BASOPHILS 0.3 % (0-2); EOSINOPHILS 1.5 % (0-7); HEMATOCRIT 44.2 % (42.0-54.0); HEMOGLOBIN 15.2 g/dL (13.5-17.5); IMMATURE GRANULOCYTES 0.4 % (0-5); LYMPHOCYTES 13.4 % (15-50); MCHC 34.4 g/dL (31.0-37.0); MCV 90.2 fL (80.0-100.0); MONOCYTES 8.1 % (2-11); NEUTROPHILS 76.3 % (40-80); RDW 17.7 % (11.5-14.5); WBC 9.4 10x3/uL (4.8-10.8)
[2018-10-05 17:42] LABS: PLATELET COUNT 129 10x3/uL (130-400)
[2018-10-05 17:50] LABS: ALBUMIN 4.3 g/dL (3.4-5.0); ANION GAP 21.1 mmol/L (8-16); BILIRUBIN - TOTAL 0.83 mg/dL (0.2-1.3); CALCIUM 9.8 mg/dL (8.5-10.1); CARBON DIOXIDE 20.6 mmol/L (21.0-32.0); CREATININE - SERUM 1.3 mg/dL (0.6-1.3); POTASSIUM - SERUM 3.7 mmol/L (3.5-5.1); PROTEIN - SERUM 8.6 g/dL (6.4-8.2)
[2018-10-05 18:15] LABS: TROPONIN-I 0.075 ng/mL (0.000-0.060)
--- NOTE | 2018-10-05 18:15 | NUR ---
LAB CALLED REPORTS TROPONIN 0.075. AND JOSH SUE RN NOTIFIED
[2018-10-05 18:36] LABS: APPEARANCE CLEAR (CLEAR); BILIRUBIN NEGATIVE (NEGATIVE); COLOR STRAW (YELLOW); GLUCOSE NEGATIVE (NEGATIVE); KETONE NEGATIVE (NEGATIVE); NITRITE POSITIVE (NEGATIVE); PROTEIN 2+ mg/dL (NEGATIVE); SPECIFIC GRAVITY 1.015 (1.005-1.020); UROBILINOGEN NORMAL (NORMAL)
[2018-10-05 18:38] LABS: BACTERIA MANY /hpf (NONE SEEN); RED CELLS - URINE 0-5 /hpf (0-5); WHITE CELLS - URINE 0-5 /hpf (0-5)
--- NOTE | 2018-10-05 19:00 | NUR ---
PT RETURNED FROM CT AND IS ACTIVELY VOMITING. EDP REBEKA AT BEDSIDE.
--- NOTE | 2018-10-05 19:50 | NUR ---
PT REPORTS SLIGHT DECREASE IN NAUSEA AFTER RECEIVING ORDERED MEDS. PT RESTING ON BED. PT BP ELEVATED. EDP NOTIFIED.
--- NOTE | 2018-10-05 20:20 | NUR ---
PT C/O INCREASED NAUSEA. EDP STALEY NOTIFIED.
--- NOTE | 2018-10-05 21:00 | NUR ---
PT BP CONTINUES TO BE ELEVATED. EDP STALEY NOTIFIED.
--- NOTE | 2018-10-05 21:40 | NUR ---
RN SPOKE WITH GIDEON STALEY REGARDING PT ELEVATED BP 188/119. GIDEON STALEY GAVE VERBAL GO AHEAD TO TRANSPORT PT TO INPATIENT ROOM DUE TO BP TRENDING DOWN AT THIS TIME AFTER RECEIVING SECOND DOSE OF HYDRALAZINE.
[2018-10-05] MEDS ORDERED: HYDRALAZINE HCL25 MG PO (21:59)
[2018-10-05] MEDS ORDERED: CATAPRES TTS-10.1 MG TD (22:00)
--- NOTE | 2018-10-05 22:16 | NUR ---
RECEIVED FROM ER, VIA WHEELCHAIR, PT IS N/V, ASKING FOR SPRITE, MEDS AND ADMISSION HISTORY COMPLETE, PLACE ON UDHILGBV-TN-30, VITALS-T-97.9, BP-170/107, P-68, R-20, 02-, BED IS LOW, SRX2, CALL LIGHT IN REACH, WILL CONTINUE PLAN OF CARE
[2018-10-06 03:45] VITALS: BP 123/77
[2018-10-06 05:17] LABS: BASOPHILS 0.2 % (0-2); EOSINOPHILS 0.2 % (0-7); HEMATOCRIT 38.1 % (42.0-54.0); HEMOGLOBIN 13.3 g/dL (13.5-17.5); IMMATURE GRANULOCYTES 0.3 % (0-5); LYMPHOCYTES 17.8 % (15-50); MCH 30.8 pg (26.0-34.0); MCHC 34.9 g/dL (31.0-37.0); MCV 88.2 fL (80.0-100.0); MONOCYTES 9.2 % (2-11); NEUTROPHILS 72.3 % (40-80); PLATELET COUNT 104 10x3/uL (130-400); RBC 4.32 10x6/uL (4.20-6.10); RDW 17.6 % (11.5-14.5); WBC 6.4 10x3/uL (4.8-10.8)
[2018-10-06 05:43] LABS: ALBUMIN 3.5 g/dL (3.4-5.0); ALKALINE PHOSPHATASE 118 U/L (46-116); ALT (SGPT) 87 U/L (10-68); BILIRUBIN - TOTAL 0.57 mg/dL (0.2-1.3); CALCIUM 8.3 mg/dL (8.5-10.1); CHLORIDE - SERUM 108 mmol/L (98-107); POTASSIUM - SERUM 3.8 mmol/L (3.5-5.1); PROTEIN - SERUM 7.1 g/dL (6.4-8.2); SODIUM 142 mmol/L (136-145); UREA NITROGEN 15 mg/dL (7-18); eGFR NON AFRICAN AMERICAN 80 mL/min (90-120)
[2018-10-06 05:45] LABS: CALC OSMOLALITY 284 mosm/kg (275-300); GLUCOSE 114 mg/dL (74-106)
[2018-10-06 05:46] LABS: TROPONIN-I 1.736 ng/mL (0.000-0.060)
[2018-10-06 07:55] VITALS: BP 139/87
--- NOTE | 2018-10-06 08:45 | NUR ---
TO CRACKING AND FANNING MACHINE OPERATOR PRE BED
--- NOTE | 2018-10-06 10:00 | NUR ---
RECIVED FROM LIMNOLOGY TEACHER PER BED. RT GROIN WITH FEMSTOP NOTED. PULSE PALP
[2018-10-06 12:06] VITALS: BP 185/109
--- NOTE | 2018-10-06 12:23 | NUR ---
I have reviewed this patient and I concur with the Shift Assessment completed by the Licensed Practical Nurse today this shift.
[2018-10-06 13:08] VITALS: Ht 170.2 cm; Wt 70.6 kg
--- NOTE | 2018-10-06 16:14 | NUR ---
WITHOUT CHANGES OR DISTRESS NOTED AT THIS TIME. DENIES NEEDS
[2018-10-06 16:30] VITALS: BP 165/96
--- NOTE | 2018-10-06 19:15 | NUR ---
RECEIVED REPORT, WILL ASSUME CARE OF PT, PT IS SLEEPING, NO DISTRESS NOTICED AT THIS TIME, BED IS LOW, SRX2, CALL LIGHT IN REACH, WILL CONTINUE PLAN OF CARE
[2018-10-06 21:24] VITALS: BP 106/69
[2018-10-07 00:36] VITALS: BP 108/68
--- NOTE | 2018-10-07 05:28 | NUR ---
I have reviewed this patient and I concur with the Shift Assessment completed by the Licensed Practical Nurse today this shift.
[2018-10-07 05:37] VITALS: BP 92/51
[2018-10-07 06:01] LABS: ANION GAP 13.7 mmol/L (8-16); BILIRUBIN - TOTAL 0.62 mg/dL (0.2-1.3); CALCIUM 8.1 mg/dL (8.5-10.1); CARBON DIOXIDE 23.8 mmol/L (21.0-32.0); CREATININE - SERUM 1.2 mg/dL (0.6-1.3); MAGNESIUM - SERUM 1.5 mg/dL (1.8-2.4); POTASSIUM - SERUM 3.5 mmol/L (3.5-5.1); PROTEIN - SERUM 6.5 g/dL (6.4-8.2)
[2018-10-07 06:57] LABS: BASOPHILS 0.1 % (0-2); EOSINOPHILS 1.9 % (0-7); HEMATOCRIT 35.7 % (42.0-54.0); HEMOGLOBIN 12.4 g/dL (13.5-17.5); LYMPHOCYTES 23.5 % (15-50); MCH 31.1 pg (26.0-34.0); MCHC 34.7 g/dL (31.0-37.0); MCV 89.5 fL (80.0-100.0); MONOCYTES 12.3 % (2-11); NEUTROPHILS 62.2 % (40-80); PLATELET COUNT 94 10x3/uL (130-400); RBC 3.99 10x6/uL (4.20-6.10); RDW 17.9 % (11.5-14.5); WBC 6.8 10x3/uL (4.8-10.8)
--- NOTE | 2018-10-07 07:51 | NUR ---
MORNING ROUNDS MADE. PT STATES PAIN IN SHOULDER, INFORMED PT WILL NEED TO CHECK BP BEFORE GIVING PAIN MEDICATION. A/O X 4. R AC IV SL, PATENT, NO REDNESS OR EDEMA NOTED, DRSG C/D/I. RM AIR. SINUS ALEJANDRO AT THIS TIME. CATARPESS PATCH ON X 7 DAYS. NO EDEMA NOTED. DRSG TO Guerrero ROUSSEAU FROM HEART CATH ON 10/06/18. BREATHING EVEN AND UNLABORED. FALL PRECAUTIONS IN PLACE. BED LOWERED AND LOCKED. CL IN REACH. WILL CTM
[2018-10-07 07:56] VITALS: BP 89/52
[2018-10-07 08:00] LABS: PLATELET ESTIMATE DECREASED
[2018-10-07 08:02] LABS: ACANTHOCYTES OCC; ANISOCYTOSIS OCC; CRENATED CELLS 1+; ROULEAUX OCC
--- NOTE | 2018-10-07 09:02 | NUR ---
FOUNDER & CEO REPORTED BP OF 84/52, MANUAL BP TAKEN. RESULTS 110/80. AM BP MEDS HELP. PT STILL HAS CATAPRESS PATCH ON AT THIS TIME. TOOK MEDS WITHOUT DIFFICULTY. TYLENOL #3 GIVEN FOR PAIN IN SHOULDERS AND BACK. PT SAT UP IN BED TO EAT BREAKFAST. NO FUTHER CONERNS AT THIS TIME. FALL PRECAUTIONS IN PLACE. YELLOW GOWN ON. NON SKID SOCKS ON. SR UP X 2. BED LOWERED AND LOCKED. CL IN REACH. WILL CTM
--- NOTE | 2018-10-07 09:53 | NUR ---
I have reviewed this patient and I concur with the Shift Assessment completed by the Licensed Practical Nurse today this shift.
[2018-10-07 12:03] VITALS: BP 103/62
--- NOTE | 2018-10-07 14:00 | CN ---
PATIENT NAME:GLENN MARTINEZ MEDICAL RECORD: [id number] : 53 LOCATION:D. 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 Enzymes are consistent with NSTEMI, does have a previous history of coronary artery disease. ECG is without acute change. We are asked to see him concerning the above. ALLERGIES: LISINOPRIL, HYDROCODONE. MEDICATIONS: Typically include Robaxin 750 b.i.d.; hydralazine 25 every day; losartan 50 b.i.d.; metoprolol 50 b.i.d.; amlodipine 5 b.i.d.; clonidine patch 0.1 every 24 hours; Keppra 1 gram at bedtime. SOCIAL HISTORY: Nonsmoker, nondrinker. He is able to take care of all his ADLs. REVIEW OF SYSTEMS: The patient reports easy bruising but reports no swollen glands. The patient reports no fever, no night sweats, no significant weight gain, no significant weight loss. No significant exercise tolerance. The patient reports no dry eyes, no irritation, no vision change. Patient reports no difficulty hearing and no ear pain. Patient reports no frequent nose bleeds or nose and sinus problems. Patient reports on arm pain on exertion. No shortness of breath while lying down. No history of heart murmur. Patient reports no cough, no wheezing or coughing up blood. Patient reports no abdominal pain, no vomiting. Normal appetite. No diarrhea and not vomiting blood. No nausea and no constipation. Patient reports no incontinence. No difficulty urinating. No hematuria. No increased frequency. Patient reports no muscle aches. No weakness, no arthralgias, no back pain. No swelling of the extremities. Patient reports no abnormal mole, no jaundice, no rashes. Reports no loss of consciousness. No weakness and no numbness. No seizures, dizziness, or headaches. The patient reports no depression, no sleep disturbance, feeling safe in a relationship and no alcohol abuse. Patient reports on fatigue. Reports no runny nose or sinus pressure. No itching, no hives, and no frequent sneezing. PHYSICAL EXAMINATION: GENERAL: No acute distress. VITAL SIGNS: Blood pressure 187/99, pulse 71 and regular. HEENT: Normocephalic, atraumatic. NECK: No JVD or bruit. HEART: Regular, II/ systolic ejection murmur. LUNGS: Good air excursion. ABDOMEN: Soft, nontender. EXTREMITIES: Pulses 2+ with no edema. DIAGNOSTIC DATA: EKG shows nonspecific ST-T changes. IMPRESSION: Non-ST segment elevation myocardial infarction. CONSULT REPORT [id number] GLENN MARTINEZ PLAN: For diagnostic angiography, intervention based on the above. TRANSINT:[id number] Voice Confirmation ID: [id number] DOCUMENT ID: [id number] JAMARI BLACK MD at 1400 CC: [id number] DICTATION DATE: 10/06/18 0838 PROCESS TREATER: 10/06/18 1031 ADM IN [place] [id number] [place] [address]
--- NOTE | 2018-10-07 14:00 | OP ---
PATIENT NAME: GLENN MARTINEZ MEDICAL RECORD: [id number] :53 LOCATION:D.M2 D.2128 ADMISSION DATE:10/05/18 SURGEON: JAMARI BLACK MD DATE OF OPERATION: 10/06/2018 PROCEDURE: Left heart catheterization, selective coronary angiography, right femoral artery approach. CATHETERS: A 5-Syriac sheath, 5/4 left and right Stephanie, 5/4 pig. The procedure was well tolerated. The patient returned to sofia, sheath removed. ExoSeal device placed. FINDINGS: Left ventriculography in 30-degree TAYLOR view shows anterior apical, apical, and inferoapical hypokinesis. Overall, LV function reduced to 30%. CORONARY ANATOMY: LEFT MAIN: Left main is free of disease. LAD: Has an area of plaquing of about 30%. LAD itself does not reach the apex. CIRCUMFLEX: Area of previous stenting is widely patent. RIGHT CORONARY ARTERY: Has a large vessel, dominant system reaching past the apex, correlating with V-gram and ECG changes or appears about 70% stenosis in mid portion, correlating with V-gram and ECG changes. IMPRESSION: Non-ST elevation myocardial infarction secondary to transient occlusion right. PLAN: Intervention momentarily. DESCRIPTION OF PROCEDURE: A 5-Syriac sheath was exchanged for a 6-Syriac sheath. A hockey stick guide catheter provided excellent guide catheter support. Stent deployed was a 3.5 x 12 mm Cobra stent up to 14 atmospheres for 45 seconds. Final angiography shows excellent resolution of a 70% to 80% stenosis, no significant residual. VONDA flow was 3 throughout the procedure. The patient previously on ARB and beta blockade, we will add statin. Plavix was loaded in the lab. TRANSINT:[id number] Voice Confirmation ID: [id number] DOCUMENT ID: [id number] JAMARI BLACK MD at 1400 CC: [id number] DICTATION DATE: 10/06/18 0951 LINE LEADER: 10/06/18 1104 [place] [address]
[2018-10-07 15:55] VITALS: BP 108/72
--- NOTE | 2018-10-07 18:59 | NUR ---
PT IN BED. REQUESTS PAIN PILL WHEN IT IS DUE. DENIES FURTHER NEEDS AT THIS TIME.
[2018-10-07 20:28] VITALS: BP 93/54
[2018-10-08 00:14] VITALS: BP 89/50
[2018-10-08 04:46] VITALS: BP 117/66
[2018-10-08 06:07] LABS: BASOPHILS 0.3 % (0-2); EOSINOPHILS 3.7 % (0-7); HEMATOCRIT 33.1 % (42.0-54.0); HEMOGLOBIN 11.2 g/dL (13.5-17.5); LYMPHOCYTES 23.3 % (15-50); MCH 30.5 pg (26.0-34.0); MCHC 33.8 g/dL (31.0-37.0); MCV 90.2 fL (80.0-100.0); MEAN PLATELET VOLUME 11.1 fL (7.4-10.4); MONOCYTES 11.4 % (2-11); NEUTROPHILS 61.3 % (40-80); RBC 3.67 10x6/uL (4.20-6.10); RDW 17.9 % (11.5-14.5)
[2018-10-08 06:51] LABS: WBC 3.8 10x3/uL (4.8-10.8)
[2018-10-08 06:52] LABS: PLATELET COUNT 69 10x3/uL (130-400)
--- NOTE | 2018-10-08 07:03 | NUR ---
PT NOT IN ROOM AT THIS TIME. PT IN SURGERY FOR EGD WITH TIVA.
[2018-10-08 07:05] LABS: ALBUMIN 3.1 g/dL (3.4-5.0); BILIRUBIN - TOTAL 0.48 mg/dL (0.2-1.3); CALCIUM 8.2 mg/dL (8.5-10.1); CARBON DIOXIDE 19.9 mmol/L (21.0-32.0); CREATININE - SERUM 1.5 mg/dL (0.6-1.3)
--- NOTE | 2018-10-08 07:30 | NUR ---
PT BACK FROM SURGERY VIA BED. PT A/O X 4. STATES PAIN IN BACK AND SHOULDERS. VITALS STABLE AT THIS TIME. PT RESTING COMFORTABLY. WILL CTM.
[2018-10-08 07:35] LABS: POTASSIUM - SERUM 2.9 mmol/L (3.5-5.1)
[2018-10-08 08:15] VITALS: BP 97/62
[2018-10-08 08:26] LABS: PLATELET ESTIMATE DECREASED
[2018-10-08 08:28] LABS: ACANTHOCYTES OCC; CRENATED CELLS OCC
--- NOTE | 2018-10-08 09:18 | NUR ---
PT BP LOW AT THIS TIME. HELD MORNING BP MEDS. TOOK OTHER MEDS WITHOUT DIFFICULTY. IV TO R FA SL, NO REDNESS OR EDEMA NOTED, PATENT. RM AIR. BREATHING EVEN AND UNLABORED. DENIES FURTHER NEEDS AT THIS TIME. FALL PRECAUTIONS IN PLACE. BED LOWERED AND LOCKED. CL IN [facility]. WILL CTM.
--- NOTE | 2018-10-08 09:39 | NUR ---
k+ 2.9, STARTED ELECTROLYTE PROTOCOL. FIRST DOSE OF K+ 20 MEQ GIVEN AT 0930
--- NOTE | 2018-10-08 10:08 | NUR ---
I have reviewed this patient and I concur with the Shift Assessment completed by the Licensed Practical Nurse today this shift.
--- NOTE | 2018-10-08 11:08 | NUR ---
SECOND DOSE OF K+ GIVEN FOR ELECTROLTE PROTOCOL FOR K+ OF 2.9
--- NOTE | 2018-10-08 11:36 | NUR ---
CATAPRESS PATCH REMOVED FROM L SHOULDER, PATCH WAS DATED 10/05/18 190. NO FURTHER NEEDS AT THIS TIME. WILL CTM
[2018-10-08 11:40] VITALS: BP 103/52
[2018-10-08 15:24] VITALS: BP 112/65
--- NOTE | 2018-10-08 19:27 | NUR ---
PT IN BED. DENIES NEEDS AT THIS TIME.
[2018-10-08 22:50] VITALS: BP 116/68
[2018-10-09 05:14] VITALS: BP 142/81
[2018-10-09 06:45] LABS: BASOPHILS 0.3 % (0-2); EOSINOPHILS 3.1 % (0-7); HEMATOCRIT 33.3 % (42.0-54.0); HEMOGLOBIN 11.4 g/dL (13.5-17.5); IMMATURE GRANULOCYTES 0.3 % (0-5); LYMPHOCYTES 21.4 % (15-50); MCHC 34.2 g/dL (31.0-37.0); MCV 90.5 fL (80.0-100.0); MONOCYTES 14.4 % (2-11); NEUTROPHILS 60.5 % (40-80); PLATELET COUNT 74 10x3/uL (130-400); RBC 3.68 10x6/uL (4.20-6.10); RDW 17.8 % (11.5-14.5); WBC 3.8 10x3/uL (4.8-10.8)
[2018-10-09 06:53] LABS: ALBUMIN 3.2 g/dL (3.4-5.0); ANION GAP 15.7 mmol/L (8-16); BILIRUBIN - TOTAL 0.42 mg/dL (0.2-1.3); CALCIUM 8.3 mg/dL (8.5-10.1); CARBON DIOXIDE 18.8 mmol/L (21.0-32.0); MAGNESIUM - SERUM 1.7 mg/dL (1.8-2.4); POTASSIUM - SERUM 3.5 mmol/L (3.5-5.1); PROTEIN - SERUM 6.5 g/dL (6.4-8.2)
[2018-10-09 06:56] LABS: CREATININE - SERUM 1.1 mg/dL (0.6-1.3)
[2018-10-09 07:27] VITALS: BP 128/75
--- NOTE | 2018-10-09 07:30 | NUR ---
PT RESTING IN BED, SHIFT ASSESSMENT PERFORMED. DENIES ANY NEEDS AT THIS TIME. WILL CONT TO FOLLOW POC
[2018-10-09 11:10] VITALS: BP 127/73
[2018-10-09] MEDS ORDERED: PROTONIX40 MG PO (11:10)
[2018-10-09] MEDS ORDERED: LIPITOR20 MG PO (12:59)
[2018-10-09] MEDS ORDERED: PLAVIX75 MG PO (12:59)
[2018-10-09] MEDS ORDERED: ASPIRIN81 MG PO (13:00)
--- NOTE | 2018-10-09 14:30 | NUR ---
DISCHARGE INSTRUCTIONS REVIEWED WITH PT AND ALL QUESTIONS ANSWERED. PIV REMOVED WITH CATHETER TIP INTACT, TELEMETRY REMOVED AND GIVEN TO TEST SPECIALIST. ASSISTED PT TO FRONT OF HOSPITAL WHERE HE LEFT WITH HIS DAUGHTER
--- NOTE | 2018-10-10 08:24 | MORECARE ---
CASE MANAGEMENT DISCHARGE SUMMARY PATIENT: GLENN MARTINEZ UNIT: [id number] ADM DATE: 10/05/18 AGE: 63 : 53 SEX: M ROOM/BED: D.2128 AUTHOR: DILEEP COPELAND PHYSICIAN: REFERRING PHYSICIAN: URVASHI LIRA MD DATE OF SERVICE: 10/10/18 Discharge Plan Patient Name: GLENN [facility]ARTINEZ [facility] [facility] 1955 Planned Disposition: Home Anticipated Discharge Date: 10/09/18 Discharge Date: 10/09/2018 Expected LOS: 4 Initial Reviewer: [email or web address] Initial Review Date: 10/10/2018 Generated: 10/10/18 9:24 am Patient Name: GLENN MARTINEZ Page [id number] at 0824 All edits/amendments must be made on the electronic document DICTATION DATE: 10/10/18823 CLIN TECH: ESAU 10/10/18823 RPT#: [id number] DC DATE:10/09/18 STATUS: DIS IN [facility] [address] [place] [address] END OF REPORT
== END 2018-10-09 14:32 | disposition home or self-care (01) ==
LOC: D.ER 17:10 → D.M2 19:59 → OBSVTIME 19:59 → D.M2 19:59
PROVIDERS: Family Medicine; ADMIT Internal Medicine Nephrology; ATTEND Internal Medicine Nephrology
DX: I21.4 Non-ST elevation (NSTEMI) myocardial infarction (principal); I11.0 Hypertensive heart disease with heart failure; I50.43 Acute on chronic combined systolic (congestive) and diastolic (congestive) heart failure; I25.10 Atherosclerotic heart disease of native coronary artery without angina pectoris; T18.2XXA Foreign body in stomach, initial encounter; F41.9 Anxiety disorder, unspecified; G40.909 Epilepsy, unspecified, not intractable, without status epilepticus; K21.9 Gastro-esophageal reflux disease without esophagitis; D64.9 Anemia, unspecified; N39.0 Urinary tract infection, site not specified; F17.213 Nicotine dependence, cigarettes, with withdrawal

== ENCOUNTER 2018-12-26 04:49 | Inpatient (IN) | payer MEDICARE ==
[~2018-12-26] VITALS: Ht 170.2 cm; Wt 81.6 kg
[~2018-12-26 04:49] MED LIST changes: +ASPIRIN81 MG PO; +CATAPRES TTS-10.1 MG TD; +HYDRALAZINE HCL25 MG PO; +LIPITOR20 MG PO; +PLAVIX75 MG PO
--- NOTE | 2018-12-26 05:30 | NUR ---
16 FR COUDE INDWELLING RAINEY CATHETER INSERTED WITH RESISTANCE. STERILE FIELD MAINTAINED, PT TOLERATED WELL, SECURED TO LEFT INNER THIGH, 1200ML OUTPUT AT INSERTION, SAMPLE SENT TO LAB.
[2018-12-26 05:31] LABS: APTT 28.1 SECONDS (22.8-39.4); BASOPHILS 0.1 % (0-2); EOSINOPHILS 2.7 % (0-7); HEMATOCRIT 37.7 % (42.0-54.0); HEMOGLOBIN 12.5 g/dL (13.5-17.5); IMMATURE GRANULOCYTES 0.4 % (0-5); INR 1.27 (0.85-1.17); MCH 31.5 pg (26.0-34.0); MCHC 33.2 g/dL (31.0-37.0); MONOCYTES 9.1 % (2-11); NEUTROPHILS 72.7 % (40-80); PROTIME 15.3 SECONDS (11.6-15.0); RBC 3.97 10x6/uL (4.20-6.10); WBC 13.4 10x3/uL (4.8-10.8)
[2018-12-26 05:32] LABS: PLATELET COUNT 90 10x3/uL (130-400)
[2018-12-26 05:39] LABS: ALBUMIN 3.7 g/dL (3.4-5.0); ALKALINE PHOSPHATASE 97 U/L (46-116); ALT (SGPT) 41 U/L (10-68); BILIRUBIN - TOTAL 0.56 mg/dL (0.2-1.3); CALC OSMOLALITY 287 mosm/kg (275-300); CALCIUM 8.6 mg/dL (8.5-10.1); CARBON DIOXIDE 21.1 mmol/L (21.0-32.0); CHLORIDE - SERUM 107 mmol/L (98-107); CREATININE - SERUM 1.2 mg/dL (0.6-1.3); POTASSIUM - SERUM 4.2 mmol/L (3.5-5.1); PROTEIN - SERUM 7.7 g/dL (6.4-8.2); SODIUM 144 mmol/L (136-145); UREA NITROGEN 8 mg/dL (7-18); eGFR NON AFRICAN AMERICAN 65 mL/min (90-120)
[2018-12-26 05:41] LABS: GLUCOSE 148 mg/dL (74-106)
[2018-12-26 05:42] VITALS: BP 151/100
[2018-12-26 05:47] LABS: PLATELET ESTIMATE DECREASED
[2018-12-26 05:48] LABS: APPEARANCE HAZY (CLEAR); BILIRUBIN NEGATIVE (NEGATIVE); COLOR YELLOW (YELLOW); GLUCOSE NEGATIVE (NEGATIVE); KETONE NEGATIVE (NEGATIVE); NITRITE NEGATIVE (NEGATIVE); PROTEIN TRACE mg/dL (NEGATIVE); UROBILINOGEN NORMAL (NORMAL); WHITE CELLS - URINE NSEEN /hpf (0-5)
[2018-12-26 05:52] LABS: CKMB 0.9 U/L (0.0-3.6); CREATINE KINASE 62 UL (21-232); PRO BNP 3563 pg/mL (0-125); TROPONIN-I 0.016 ng/mL (0.000-0.060)
--- NOTE | 2018-12-26 06:00 | NUR ---
[facility] CONTACT INFORMATION [phone]
--- NOTE | 2018-12-26 07:05 | NUR ---
OUTPUT OF 1650ML OF CLEAR YELLOW URINE EMPTIED FROM RAINEY CATHETER BAG.
--- NOTE | 2018-12-26 07:17 | NUR ---
MAGNESIUM INFUSION COMPLETE AT THIS TIME.
--- NOTE | 2018-12-26 07:35 | NUR ---
TRANSFER FROM ER BY STRETCHER. OREINTED TO ROOM. CALL LIGHT IN REACH. WILL CONT. PLAN OF CARE.
[2018-12-26] MEDS ORDERED: GABAPENTIN100 MG (07:41)
--- NOTE | 2018-12-26 07:45 | NUR ---
RECEIVED PER STRETCHER FROM ER. A/A/OX4. DENIES ANY PAIN OR DISCOMFORT AT PRESENT TIME AND NO REQUESTS VOICED. ASKED ABOUT WATER OR EATING AND INSTRUCTED ON INSTRUCTIONS FOR NPO AT THIS TIME. BED IN LOWEST LOCKED POSITION, SIDERAILS UP X 2 AND CALL LIGHT IN REACH. SL PATENT TO LEFT HAND WITH NO REDNESS OR EDEMA.
[2018-12-26 08:59] VITALS: BP 139/92
[2018-12-26 09:05] VITALS: BP 139/82; BMI 28.2
[2018-12-26 14:16] VITALS: Ht 170.2 cm; Wt 81.6 kg
[2018-12-26 16:17] VITALS: BP 170/92
[2018-12-26 20:00] VITALS: BP 159/82
--- NOTE | 2018-12-26 20:31 | NUR ---
INITIAL ROUNDS COMPELTED AT 1910 HRS. PT DENEID ANY DISCOMFORT. ASSESSMENT COMPLETED AT 1954 HRS. VSS. ALERT AND ORIENTED TO PERSON, PLACE AND TIME. GARVIN. O2 2LNC. CM DENOTES SR HR 75. LUNGS DIMINISHED I BASES BILAT. IV TO L HAND WITH DOBUTREX 50MG/250CC AT 5MCC/KG/MIN (12.3CC/HR). IV PATENT. SCD'S REMOVED AND SKIN INSPECTED. NO BREAKDOWN NOTED. PT CURRENTLY WATCHING TV. S RUP X2,CALL LIGHT WITHIN REACH.
--- NOTE | 2018-12-26 22:41 | NUR ---
PT WATCHING TV. NO DISTRESS NOTED. SR UP X2, CALL LIGHT WITHIN REACH.
--- NOTE | 2018-12-27 00:26 | NUR ---
RATIONALE FOR 1500CC FR /Q 24 HRS EXPALINED TO PT. STATED UNDERSTANDING. SR UP X2, CALL LIGHT WITHIN REACH.
[2018-12-27 00:30] VITALS: BP 181/90
--- NOTE | 2018-12-27 02:03 | NUR ---
PT AWAKE; STATES PAIN LEVEL NOW 3/10. SR UP X2, CALL LIGHT WITHIN REACH.
[2018-12-27 04:00] VITALS: BP 180/92
--- NOTE | 2018-12-27 04:24 | NUR ---
PT AWAKE; DENIES ANY DISCOMFORT. SR UP X2, CALL LIGHT WITHIN REACH.
--- NOTE | 2018-12-27 06:46 | NUR ---
VSS. SR PER CM. PT STTED IV MORPHINE CONTROLS PAIN. NEEDS MET; WILL CONTINUE TO MONITOR.
[2018-12-27 07:16] LABS: ALBUMIN 3.3 g/dL (3.4-5.0); BILIRUBIN - TOTAL 0.62 mg/dL (0.2-1.3); CREATININE - SERUM 1.1 mg/dL (0.6-1.3); MAGNESIUM - SERUM 1.5 mg/dL (1.8-2.4); PROTEIN - SERUM 6.8 g/dL (6.4-8.2)
[2018-12-27 07:17] LABS: ANION GAP 14.2 mmol/L (8-16); CARBON DIOXIDE 28.8 mmol/L (21.0-32.0)
--- NOTE | 2018-12-27 07:35 | NUR ---
PT AWAKE AND ORIENTED, LYING ON HIS BACK IN BED. PT IS IN A PLESANT MOOD AND STATES NO COMPLAINTS/CONCERNS/QUESTIONS THIS MORNING. STATES HE SLEPT OK LAST NIGHT. CL IN REACH, SRX2.
[2018-12-27 08:43] VITALS: BP 188/89
[2018-12-27 08:44] LABS: BASOPHILS 0 % (0-2); EOSINOPHILS 0 % (0-7); HEMATOCRIT 32.6 % (42.0-54.0); HEMOGLOBIN 11.4 g/dL (13.5-17.5); IMMATURE GRANULOCYTES 0.3 % (0-5); LYMPHOCYTES 4.3 % (15-50); MCH 31.5 pg (26.0-34.0); MONOCYTES 5.4 % (2-11); RBC 3.62 10x6/uL (4.20-6.10); RDW 17.5 % (11.5-14.5); WBC 11.7 10x3/uL (4.8-10.8)
[2018-12-27 08:48] LABS: MCV 90.1 fL (80.0-100.0)
[2018-12-27 08:49] LABS: PLATELET COUNT 62 10x3/uL (130-400)
[2018-12-27 09:37] LABS: PLATELET ESTIMATE DECREASED
[2018-12-27 12:13] VITALS: BP 152/86
--- NOTE | 2018-12-27 14:52 | NUR ---
CATHETER REMOVED PER NURSING PROTOCOL.
--- NOTE | 2018-12-27 16:04 | NUR ---
PT WAS ABLE TO WALK WELL, TOOK AN UNASSISTED SHOWER. ALL QUESTIONS ANSWER. I/V SITE REDRESSED. CL IN REACH, SRX2.
--- NOTE | 2018-12-27 16:26 | NUR ---
I/V RESITED TO RIGHT FOREARM. LH TAKEN OUT, TIP INTACT.
--- NOTE | 2018-12-27 18:36 | NUR ---
ADJUSTED DOBUTAMINE DRIP TO 2.5M/K/M PER DR. BHARATI FLORES
--- NOTE | 2018-12-27 19:16 | NUR ---
INITIAL ROUNDS COMPLETED. PT DENIED ANY DISCOMFORT. SR U X2, CALL LIGHT WITHIN REACH.
[2018-12-27 20:00] VITALS: BP 178/82; BP 201/97
--- NOTE | 2018-12-27 20:05 | NUR ---
ASSESSMENT COMPLETED AT 1950 HRS. ALERT AND ORIENTED TO PERSON, PLACE AND TIME. GARVIN. IV TO RFA WITH DOBUTREX AT 2.5MCQ/KG/MIN (6.1CC/HR). IV PATENT. O2 2LNC. SR PER CM HR 68. LUNGS DIMINISHED IN BASES BILAT. PT UP AD OSCAR. REFUSES SCD'S. SR UP X2, CALL LIGHT WITHIN REACH.
--- NOTE | 2018-12-27 21:30 | NUR ---
DAUGHTER AT BEDSIDE. STATES PAIN LEVEL SARIAH 4/10 AFTER MORPHNE ADMINISTRATION. SR UP X1, CALL LIGHT WITHIN REACH.
--- NOTE | 2018-12-27 22:52 | NUR ---
BP 200/103. [facility] PAGED.
--- NOTE | 2018-12-27 23:01 | NUR ---
Jaky BROOKS APN FROM [facility] INFORMED OF PT'S BP AND CURRENT MEDS. NEW ORDERS RECEIVED AND NOTED.
--- NOTE | 2018-12-27 23:14 | NUR ---
APRESOLINE 10MG SIVP GIVEN FOR BP 200/103. WILL RECHECK IN 1 HR.
[2018-12-28 00:16] VITALS: BP 185/102
--- NOTE | 2018-12-28 00:19 | NUR ---
BP NOW 185/102. MORPHINE 1MG SIVP GIVEN FOR C/O CHRONIC BACK AND NECK PAIN. SR UP X2, CALL LIGHT WITHIN REACH.
[2018-12-28 00:30] VITALS: BP 201/97
--- NOTE | 2018-12-28 02:19 | NUR ---
PT RESTING WITH EYES CLOSED. RESP EVEN AND REGULAR. SR UP X2, CALL LIGHT WITHIN REACH.
[2018-12-28 04:00] VITALS: BP 185/96
--- NOTE | 2018-12-28 04:07 | NUR ---
PT RESTING WITH EYES CLOSED. RESP EVEN AND REGULAR. SR UP X2,CALL LIGHT WITHIN REACH.
[2018-12-28 05:55] LABS: HEMATOCRIT 35.7 % (42.0-54.0); HEMOGLOBIN 12.1 g/dL (13.5-17.5); LYMPHOCYTES 5.3 % (15-50); MCH 31.7 pg (26.0-34.0); MCHC 33.9 g/dL (31.0-37.0); NEUTROPHILS 85.6 % (40-80); PLATELET COUNT 53 10x3/uL (130-400); RBC 3.82 10x6/uL (4.20-6.10); RDW 17.9 % (11.5-14.5); WBC 10.2 10x3/uL (4.8-10.8)
[2018-12-28 06:02] LABS: MCV 93.5 fL (80.0-100.0)
--- NOTE | 2018-12-28 06:17 | NUR ---
PT STATES MORPHINE HELPS HIS CHRONIC PAIN. IV APRESOLINE BRINGS BP DOWN TO THE 180'S SYSTOLIC. SR PER CM HR THROUGHOUT SHIFT. NEEDS MET; WILL CONTINUE TO MONITOR.
[2018-12-28 06:33] LABS: ALBUMIN 3.4 g/dL (3.4-5.0); ANION GAP 13.9 mmol/L (8-16); BILIRUBIN - TOTAL 0.5 mg/dL (0.2-1.3); CALCIUM 8.2 mg/dL (8.5-10.1); CREATININE - SERUM 1.1 mg/dL (0.6-1.3); MAGNESIUM - SERUM 1.7 mg/dL (1.8-2.4); PHOSPHOROUS 3.6 mg/dL (2.5-4.9); PROTEIN - SERUM 7.4 g/dL (6.4-8.2)
[2018-12-28 06:34] LABS: POTASSIUM - SERUM 2.9 mmol/L (3.5-5.1)
--- NOTE | 2018-12-28 08:03 | NUR ---
ASSESSMEN COMPLETED. ALERT AND ORIENTED. TELEMERTY SHOWS SR 73. UP AB OSCAR. RIGHT FA WITH BOBUTAMINE AT 6.1. LUNGS DIMISHED. WILL MONITOR. SR UP WITH CALL LIGHT IN REACH
[2018-12-28 09:06] VITALS: BP 192/105
[2018-12-28 11:43] VITALS: BP 195/102
--- NOTE | 2018-12-28 14:41 | NUR ---
I have reviewed this patient and I concur with the Shift Assessment completed by the Licensed Practical Nurse today this shift.
--- NOTE | 2018-12-28 19:37 | NUR ---
RECEIVED REPORT, WILL ASSUME CARE OF PT, DENIES ANY NEEDS AT THIS TIME, BED IS LOW, SRX2, CALL LIGHT IN REACH, WILL CONTINUE PLAN OF CARE
[2018-12-28 20:00] VITALS: BP 166/89
--- NOTE | 2018-12-28 20:40 | NUR ---
PM MEDS GIVEN, PROVIDED ICE WATER
--- NOTE | 2018-12-28 22:15 | NUR ---
COMPLAINS OF PAIN, ASKING FOR MORPHINE (GAVE ORDERED)
[2018-12-29 00:14] VITALS: BP 188/97
--- NOTE | 2018-12-29 02:57 | NUR ---
I have reviewed this patient and I concur with the Shift Assessment completed by the Licensed Practical Nurse today this shift.
[2018-12-29 04:15] VITALS: BP 150/79
[2018-12-29 05:34] LABS: BASOPHILS 0.2 % (0-2); EOSINOPHILS 1.1 % (0-7); HEMATOCRIT 35.8 % (42.0-54.0); IMMATURE GRANULOCYTES 0.3 % (0-5); LYMPHOCYTES 18.2 % (15-50); MCH 31.1 pg (26.0-34.0); MCHC 33.5 g/dL (31.0-37.0); MCV 92.7 fL (80.0-100.0); MONOCYTES 10.4 % (2-11); NEUTROPHILS 69.8 % (40-80); RBC 3.86 10x6/uL (4.20-6.10); RDW 17.8 % (11.5-14.5)
[2018-12-29 05:46] LABS: ALBUMIN 3.2 g/dL (3.4-5.0); ALKALINE PHOSPHATASE 72 U/L (46-116); ALT (SGPT) 53 U/L (10-68); BILIRUBIN - TOTAL 0.53 mg/dL (0.2-1.3); CALC OSMOLALITY 288 mosm/kg (275-300); CALCIUM 8.1 mg/dL (8.5-10.1); CARBON DIOXIDE 28.2 mmol/L (21.0-32.0); CHLORIDE - SERUM 108 mmol/L (98-107); GLUCOSE 97 mg/dL (74-106); MAGNESIUM - SERUM 1.8 mg/dL (1.8-2.4); PHOSPHOROUS 3.4 mg/dL (2.5-4.9); POTASSIUM - SERUM 3.8 mmol/L (3.5-5.1); PROTEIN - SERUM 6.4 g/dL (6.4-8.2); SODIUM 143 mmol/L (136-145); UREA NITROGEN 24 mg/dL (7-18); eGFR NON AFRICAN AMERICAN 80 mL/min (90-120)
[2018-12-29 05:47] LABS: PLATELET COUNT 78 10x3/uL (130-400); WBC 6.2 10x3/uL (4.8-10.8)
--- NOTE | 2018-12-29 07:23 | NUR ---
PT ASLEEP, WOKE TO LIGHT STIMULATION BUT DID NOT WAKE FULLY. SIDE LYING, BREATHS EVEN/REGULAR/UNLABORED. NO SIGNS/SYMPTOMS OF ACUTE DISTRESS NOTED AT THIS TIME. CL IN REACH, SRX2.
[2018-12-29 07:48] LABS: PLATELET ESTIMATE DECREASED; PLATELET MORPHOLOGY GIANT PLTS PRESENT
[2018-12-29 08:25] VITALS: BP 144/78
[2018-12-29 11:43] VITALS: BP 166/88
[2018-12-29] MEDS ORDERED: PROTONIX40 MG PO (13:49)
[2018-12-29] MEDS ORDERED: TESSALON PERLE100 MG PO (13:49)
[2018-12-29] MEDS ORDERED: MUCINEX DM ER1 EAC1 PO (13:49)
[2018-12-29] MEDS ORDERED: SINGULAIR10 MG PO (13:49)
[2018-12-29] MEDS ORDERED: FLUTICASONE PRO16 GM NASAL (13:49)
[2018-12-29] MEDS ORDERED: PREDNISONE20 MG PO (13:50)
[2018-12-29] MEDS ORDERED: COREG12.5 MG PO (13:50)
--- NOTE | 2018-12-29 16:13 | NUR ---
PT ESCORTED OUT VIA WHEELCHAIR TO DAUGHTERS POV.
--- NOTE | 2018-12-29 17:35 | MORECARE ---
CASE MANAGEMENT DISCHARGE SUMMARY PATIENT: GLENN MARTINEZ UNIT: [id number] ADM DATE: 12/26/18 AGE: 63 : [birth year] SEX: M ROOM/BED: D.3006 AUTHOR: DINORAHDOC PHYSICIAN: REFERRING PHYSICIAN: LUI DING MD DATE OF SERVICE: 12/29/18 Discharge Plan Patient Name: GLENN MARTINEZ Facility: [facility]:[place] : 1955 Planned Disposition: Home Anticipated Discharge Date: 12/29/18 Discharge Date: 12/29/2018 Expected LOS: 3 Initial Reviewer: [email or web address] Initial Review Date: 12/29/2018 Generated: 12/29/18 6:34 pm Comments DCP- Discharge Planning Updated by [email or web address]: Abran Henning on 12/29/18 4:[address] Patient Name: GLENN MARTINEZ Admission Status: ER Accout number: [id number] Admission Date: 12-26-2018 : 1955 Admission Diagnosis: Attending: LUI DING Current LOS: 3 Anticipated DC Date: 12-29-2018 Planned Disposition: Home Primary Insurance: [employer] CHOICE PPO [facility] Discharge Planning Comments: CM MET WITH PT IN ROOM TO DISCUSS DISCHARGE PLANNING AND NEEDS. PT REPORTS LIVING AT HOME INDEPENDENTLY AND ALONE. PT HAS NEBULIZER AND BLOOD PRESSURE MONITOR WITH NO MEDICAL EQUIPMENT PROVIDER PREFERENCE. PT HAS NO OUTSIDE SERVICES ASSISTING IN THE HOME. CM DISCUSSED AVAILABILITY OF HOME HEALTH, REHAB SERVICES AND MEDICAL EQUIPMENT. PT DENIES DISCHARGE NEEDS, REPORTS HIS DAUGHTER WILL PICK HIM UP FOR DISCHARGE HOME. IMPORTANT MESSAGE FROM MEDICARE PROVIDED AND EXPLAINED. Last Waxer: Abran Henning DCPIA - Discharge Planning Initial Assessment Updated by [email or web address]: Abran Henning on 12/29/18 5:31 pm * Is the patient Alert and Oriented? Yes * How many steps to enter\exit or inside your home? NONE * PCP DR MOTT * Pharmacy [facility]. * Preadmission Environment Home Alone * ADLs Independent * Equipment Nebulizer * Other Equipment BLOOD PRESSURE MONITOR NO MEDICAL EQUIPMENT PROVIDER PREFERENCE * List name and contact numbers for known caregivers / representatives who currently or will assist patient after discharge: SELENA MARTINEZ, AARON, * Verbal permission to speak to the caregivers and representatives has been obtained from the patient. N/A * Community resources currently utilized None * Please name any agencies selected above. NONE * Additional services required to return to the preadmission environment? No * Can the patient safely return to the preadmission environment? Yes * Has this patient been hospitalized within the prior 30 days at any hospital? No Coverage Notice Reviewer: [id number] Sierra Henning Notice Issued Date-Time: 12/29/2018 16:00 Notice Type: IM Discharge Notice Notice Delivered To: Patient Relationship to Patient: [employer] Manager Name: Delivery Method: HAND - Hand Delivered Manisha Days: Prior Verbal Notification: Recipient Understood Notice: Yes Recipient Signature: Yes Med Rec Note Co-signed by Attending: Coverage Notice Comment: Patient Name: GLENN MARTINEZ Page [phone] at 1735 All edits/amendments must be made on the electronic document DICTATION DATE: 12/29/18 1734 SEED YEAST OPERATOR: ESAU 12/29/18 1734 RPT#: [id number] DC DATE:12/29/18 STATUS: DIS IN [facility] [address] [place] [address] END OF REPORT
--- NOTE | 2019-01-06 12:04 | CN ---
PATIENT NAME:GLENN MARTINEZ MEDICAL RECORD: [id number] : 53 LOCATION:D. D.2127 ADMIT DATE: 12/26/18 ACCOUNT: [id number] CONSULTING PHYSICIAN: MATT FOLEY MD REFERRING PHYSICIAN: LUI DING MD DATE OF CONSULTATION: 12/26/2018 DIAGNOSES: 1. Shortness of breath, dyspnea on exertion. 2. Congestive heart failure, chronic systolic dysfunction. 3. Cardiomyopathy. 4. Coronary artery disease. 5. Previous PTCA stent 6. Hypertension. 7. Hyperlipidemia. HISTORY OF PRESENT ILLNESS: Mr. Martinez presents with increasing shortness of breath, dyspnea on exertion times 1 week. No chest discomfort or chest pain. He has a known cardiomyopathy, ejection fraction 30%. Last cardiac intervention was PTCA stent for single vessel disease by Dr. Sanon in September. He did well on medical therapy, which included Lasix, hydralazine, Cozaar, and Lopressor until just recently. He denies any medical noncompliance or dietary indiscretion. He has had no real signs or symptoms of recurrent ischemic heart disease. His chest x-ray is reviewed and is compatible with pulmonary edema, congestive heart failure. PHYSICAL EXAMINATION: CONSTITUTIONAL/GENERAL APPEARANCE: Well nourished, well developed, appears stated age. Level of distress, comfortable. EYES: Lids and conjunctivae noninjected. No discharge. No pallor. ENT: Lips within normal limit. No cyanosis. No pallor. NECK: Carotid arteries, bilateral normal upstroke. No bruits. No thrills. No jugular venous pressure or distention. CERVICAL LYMPH NODES: Nontender. Nonenlarged. THYROID: Not enlarged. No nodules. CARDIOVASCULAR: Precordial exam, nondisplaced. No heaves or pericardial thrills. Rate and rhythm, regular. Heart sounds, normal S1, normal S2. No S3, no gallop, no rub. Systolic murmur, not heard. Diastolic murmur, not heard. RESPIRATORY: Respiratory effort, unlabored. Normal curvature. No thoracic deformity. No chest wall tenderness. Percussion, resonant. Auscultation, clear. No wheezes, no rales, no rhonchi. ABDOMEN: Soft, nondistended, nontender. MUSCULOSKELETAL: No joint tenderness, normal gait, normal tone. SKIN: Warm and dry. OVERALL IMPRESSION: 1. Congestive heart failure. He has chronic systolic dysfunction. His cardiomyopathy on echocardiogram now is reviewed and is basically unchanged at 30%. Hence, it is stable. This is chronic systolic dysfunction, mainstay of therapy will be diuretic. We will also add dobutamine to help clear the congestive heart failure in an expedient manner. 2. Ischemic heart disease. He is stable from a standpoint of ischemic heart disease. No ST-T changes on the EKG that is reviewed. Troponin is normal on lab review and he is not having any chest pain or chest discomfort. Continue current medical management, stable from standpoint of ischemic heart disease. CONSULT REPORT [id number] GLENN MARTINEZ 3. Hypertension. His blood pressure and heart rate are not well controlled on his current medical regimen. It would be better if he were on Coreg rather than Lopressor for his low ejection fraction. We will discontinue his Lopressor, place him on Coreg 12.5 b.i.d., increasing this to 25 mg b.i.d. as blood pressure tolerates it. If he continues to have heart failure symptomatology as well, I would discontinue the Cozaar and replace this with Entresto, which we can do in the future or as an outpatient. 4. Hyperlipidemia. It is stable on his current medical regimen, which is Lipitor and no changes need to be made in this regard. TRANSINT:[id number] Voice Confirmation ID: [id number] DOCUMENT ID: [id number] MATT FOLEY MD at 1204 CC: [id number] DICTATION DATE: 12/26/18 1400 WELT SOLE LAYER: 12/26/18 1424 DIS IN 12/29/18 [facility] [address] [place] [address]
--- NOTE | 2019-01-06 12:04 | EC ---
PATIENT:GLENN MARTINEZ DATE OF SERVICE: 12/26/18 SEX: M MEDICAL RECORD: [id number] DATE OF : [birth year] LOCATION:D.M2 D.212 AGE OF PATIENT: 63 ADMISSION DATE: 12/26/18 REFERRING PHYSICIAN: INTERPRETING PHYSICIAN: MATT BAKER MD ECHOCARDIOGRAM REPORT ECHO CHARGES 4 ECHO COMPLETE Date: 12/26/18 CLINICAL DIAGNOSIS: SOB ECHOCARDIOGRAPHIC MEASUREMENTS (adult normal given) AC root (d.<3.7cm) 2.6 cm LV Septum d (<1.2 cm> 1.4 cm Valve Excursion 1.7 cm LV Septum (systole) 1.9 cm Left Atria (s.<4.0cm> 3.8 cm LVPW d(<1.2cm) 0.8 cm RV (d.<2.3cm) 2.7 cm LVPW (sytole) 1.1 cm LV diastole(<5.6CM) 5.2 cm MV E-F(>70mm/sec) cm LV systole 4.5 cm LVOT Diameter 1.9 cm MV exc.(>10mm) cm Est.ejection fraction (50-75%) % DOPPLER: LVIT cm/sec A 87 cm/sec E 51 cm/sec LA cm/sec RVSP 33.5 mmHg LVOT 106 cm/sec AOP1/2T m/s Asc. Ao 132 cm/sec RVOT 58 cm/sec RA cm/sec PA 67 cm/sec AV Gradient Peak 7.0 mmHg AV Mean 3.2 mmHg AV Area 2.3 cm MV Gradient Peak 6.3 mmHg MV Mean 3.0 mmHg MV Area cm COMMENTS: Senior Hris Analyst: Porsche BHATTI Apprentice Plumber: 1 Dr. Baker TAPE# PACS Pericardial Effusion N DATE OF SERVICE: 12/26/2018 ECHOCARDIOGRAM DATE OF SERVICE: 12/26/2018 FINDINGS: 1. Left ventricular chamber size is mildly dilated. Left ventricular systolic function is moderately reduced at 30%. 2. Left atrium, right atrium, and right ventricular chamber sizes are within ECHOCARDIOGRAM REPORT [id number] GLENN MARTINEZ normal limits. 3. Valvular structures have normal structure and motion. 4. Doppler interrogation reveals mild mitral regurgitation, trace tricuspid regurgitation, no other valvular insufficiency or stenosis. Pulmonary systolic pressure is estimated at 34 mmHg. 5. No evidence of pericardial effusion or left ventricular thrombus. TRANSINT:[id number] Voice Confirmation ID: [id number] DOCUMENT ID: [id number] MATT BAKER MD at 1204 CC: [id number] DICTATION DATE: 12/26/18 1446 WOOD TREATING INSPECTOR: 12/26/18 1541 DIS IN 12/29/18 [facility] [address] [place] [id number]
== END 2018-12-29 16:14 | disposition home or self-care (01) | DRG 291 ==
LOC: D.ER 04:49 → D.M2 06:13 → D.SDCHOLD 12-29 08:14 → D.M2 12-29 08:18
PROVIDERS: Family Medicine; ADMIT Emergency Medicine; ATTEND Emergency Medicine
DX: I11.0 Hypertensive heart disease with heart failure (principal); J18.9 Pneumonia, unspecified organism; J96.01 Acute respiratory failure with hypoxia; J44.1 Chronic obstructive pulmonary disease with (acute) exacerbation; I50.43 Acute on chronic combined systolic (congestive) and diastolic (congestive) heart failure; I42.9 Cardiomyopathy, unspecified; I25.10 Atherosclerotic heart disease of native coronary artery without angina pectoris; G40.909 Epilepsy, unspecified, not intractable, without status epilepticus; K21.9 Gastro-esophageal reflux disease without esophagitis; F41.9 Anxiety disorder, unspecified; E78.5 Hyperlipidemia, unspecified; I08.1 Rheumatic disorders of both mitral and tricuspid valves; I27.20 Pulmonary hypertension, unspecified; D50.9 Iron deficiency anemia, unspecified; J30.9 Allergic rhinitis, unspecified; Z86.73 Personal history of transient ischemic attack (TIA), and cerebral infarction without residual deficits

== ENCOUNTER 2019-06-09 13:19 | Observation (INO) | payer MEDICARE ==
[~2019-06-09] VITALS: Ht 170.2 cm; Wt 77.0 kg
[~2019-06-09 13:19] MED LIST changes: +COREG12.5 MG PO; +FLUTICASONE PRO16 GM NASAL; +GABAPENTIN100 MG; +MUCINEX DM ER1 EAC1 PO; +PREDNISONE20 MG PO; +SINGULAIR10 MG PO; +TESSALON PERLE100 MG PO
--- NOTE | 2019-06-09 14:24 | NUR ---
PT IN ROOM RESTING WITH EYES CLOSED NO DISTRESS NOTED. URINE SENT TO LAB
[2019-06-09 14:37] LABS: APPEARANCE HAZY (CLEAR); BILIRUBIN NEGATIVE (NEGATIVE); COLOR STRAW (YELLOW); GLUCOSE NEGATIVE (NEGATIVE); KETONE NEGATIVE (NEGATIVE); NITRITE POSITIVE (NEGATIVE); PROTEIN NEGATIVE (NEGATIVE); SPECIFIC GRAVITY 1.005 (1.005-1.020); UDS - AMPHET NEGATIVE QUAL (NEGATIVE); UDS - BARB NEGATIVE QUAL (NEGATIVE); UDS - BENZO NEGATIVE QUAL (NEGATIVE); UDS - COCAINE NEGATIVE QUAL (NEGATIVE); UDS - OPIATE NEGATIVE QUAL (NEGATIVE); UDS - PCP NEGATIVE QUAL (NEGATIVE); UDS - THC POSITIVE QUAL (NEGATIVE); UROBILINOGEN NORMAL (NORMAL)
[2019-06-09 14:40] LABS: BACTERIA MANY /hpf (NEGATIVE); RED CELLS - URINE 0-5 /hpf (0-5); WHITE CELLS - URINE 0-5 /hpf (NEGATIVE)
--- NOTE | 2019-06-09 14:45 | NUR ---
FOUND PT WANDERING UP AND DOWN CRYSTAL. WALKED PT BACK TO ROOM.
--- NOTE | 2019-06-09 15:17 | NUR ---
CALLED PT CONTACT HIS DAUGHTER SELENA TO SEE IF SHE COULD COME SIT WITH PT D/T HE DID NOT WANT TO STAY IN BED OR ROOM. SELENA STATED SHE WOULD BE UP HERE IN 15 MINS
--- NOTE | 2019-06-09 15:29 | NUR ---
SALVAGE SUPERVISOR IN ROOM TO DRAW LABS
[2019-06-09 15:55] LABS: BASOPHILS 0.3 % (0-2); EOSINOPHILS 1.1 % (0-7); HEMATOCRIT 39.2 % (42.0-54.0); HEMOGLOBIN 13.1 g/dL (13.5-17.5); IMMATURE GRANULOCYTES 0.3 % (0-5); LYMPHOCYTES 12.7 % (15-50); MCHC 33.4 g/dL (31.0-37.0); MCV 89.9 fL (80.0-100.0); MONOCYTES 12.3 % (2-11); NEUTROPHILS 73.3 % (40-80); RBC 4.36 10x6/uL (4.20-6.10); RDW 18.8 % (11.5-14.5); WBC 10.6 10x3/uL (4.8-10.8)
[2019-06-09 15:57] LABS: PLATELET COUNT 94 10x3/uL (130-400)
[2019-06-09 16:07] LABS: ANION GAP 15.2 mmol/L (8-16); CALCIUM 8.9 mg/dL (8.5-10.1); CARBON DIOXIDE 24.8 mmol/L (21.0-32.0); CREATININE - SERUM 1.2 mg/dL (0.6-1.3)
[2019-06-09 16:12] LABS: PLATELET ESTIMATE DECREASED
[2019-06-09 16:23] LABS: ALBUMIN 3.6 g/dL (3.4-5.0); BILIRUBIN - TOTAL 1.01 mg/dL (0.2-1.3); PROTEIN - SERUM 7.9 g/dL (6.4-8.2); THYROID STIMULATING HORMONE 1.77 uIU/mL (0.36-3.74)
[2019-06-09 17:33] LABS: AMYLASE - SERUM 101 U/L (25-115); LIPASE 187 U/L (73-393)
--- NOTE | 2019-06-09 17:41 | NUR ---
ROCEPHIN STOPPED AT THIS TIME.
--- NOTE | 2019-06-09 17:42 | NUR ---
NORMAL SALINE CONTINUING AT 100ML/HR UPON TRANSPORT TO PATIENT ROOM.
[2019-06-09] MEDS ORDERED: ULTRAM50 MG PO (18:06)
--- NOTE | 2019-06-09 18:12 | NUR ---
SPOKE WITH JEREMY SALAMANCA THAT PT IS WANTING TRAMADOL ORDERED FOR PAIN THAT H TAKES AT HOME. HE STATES HE WILL ORDER IT.
[2019-06-09 18:15] VITALS: BP 150/70; Ht 170.2 cm; Wt 77.0 kg
--- NOTE | 2019-06-09 19:22 | NUR ---
REPORT RECEIVED, WILL CONTINUE POC. PATIENT IS ALERT BUT PLEASANTLY CONFUSED. HIS FAMILY WAS ASKED TO STAY WITH HIM DUE TO BEING NON-COMPLIANT. PATIENT REPEATEDLY TRYING TO GET OUT OF BED AND NOW ASKING FOR PAIN MEDS. PATIENT FAMILY KEEPS LEAVING WITHOUT LETTING NURSING STAFF KNOW. FAMILY IS NOT AT BEDSIDE AT THIS TIME, ALBERTINA ALARM ON AND WORKING THIS NURSE JUST RUSHED TO PATIENT ROOM TO ASSIST HIM BACK INTO BED. PLACED PATIENT BACK IN BED, INSTRUCTED TO NOT GET UP WITHOUT ASSIST. PIV TO LT AC INFUSING NS@100, PATENT, DRSG C/D/I. CL IN REACH, BED LOCKED AND LOWERED, SR UP X2, ALBERTINA ALARM ON. WILL CTM.
[2019-06-09 21:20] VITALS: BP 178/83
--- NOTE | 2019-06-09 21:42 | NUR ---
PATIENT REPEATEDLY KEEPS GETTING OUT OF BED. LAUGHS ABOUT HIS ALARM SOUNDING. REORIENTED PATIENT SEVERAL TIMES AND REMINDED HIM TO REMAIN IN BED AND IF HE NEEDS ANYTHING TO USE HIS CALL LIGHT. LYNN LUNA APN ORDERS RECIEVED.
--- NOTE | 2019-06-09 22:05 | NUR ---
ADMINISTERED GEODON IM PER ORDERS TO RT VENTROGLUTEAL. PATIENT TOLERATED WELL. WILL CTM.
[2019-06-10] VITALS: BP 161/73
--- NOTE | 2019-06-10 00:55 | NUR ---
PATIENT OUT OF BED AGAIN. ASSISTED PATIENT TO USE URINAL, VOIDED 300CC YELLOW URINE. ASSISTED PATIENT BACK TO BED. ALBERTINA ALARM ON.
[2019-06-10 06:36] LABS: BASOPHILS 0.3 % (0-2); HEMATOCRIT 35.5 % (42.0-54.0); HEMOGLOBIN 11.9 g/dL (13.5-17.5); IMMATURE GRANULOCYTES 0.3 % (0-5); LYMPHOCYTES 19.8 % (15-50); MCH 30.1 pg (26.0-34.0); MCHC 33.5 g/dL (31.0-37.0); MCV 89.9 fL (80.0-100.0); MONOCYTES 17.8 % (2-11); NEUTROPHILS 59.8 % (40-80); RBC 3.95 10x6/uL (4.20-6.10); RDW 18.9 % (11.5-14.5)
[2019-06-10 06:37] LABS: ALBUMIN 3.1 g/dL (3.4-5.0); ALKALINE PHOSPHATASE 115 U/L (46-116); ALT (SGPT) 62 U/L (10-68); BILIRUBIN - TOTAL 0.91 mg/dL (0.2-1.3); CALC OSMOLALITY 284 mosm/kg (275-300); CALCIUM 8.3 mg/dL (8.5-10.1); CARBON DIOXIDE 25.3 mmol/L (21.0-32.0); CHLORIDE - SERUM 108 mmol/L (98-107); GLUCOSE 93 mg/dL (74-106); MAGNESIUM - SERUM 1.8 mg/dL (1.8-2.4); POTASSIUM - SERUM 3.9 mmol/L (3.5-5.1); PROTEIN - SERUM 7.1 g/dL (6.4-8.2); SODIUM 142 mmol/L (136-145); UREA NITROGEN 18 mg/dL (7-18); eGFR NON AFRICAN AMERICAN 80 mL/min (90-120)
[2019-06-10 06:41] LABS: PLATELET COUNT 75 10x3/uL (130-400); WBC 6.5 10x3/uL (4.8-10.8)
[2019-06-10 07:52] LABS: PLATELET ESTIMATE DECREASED; PLATELET MORPHOLOGY NORMAL PLT MORPH
[2019-06-10 10:22] VITALS: BP 185/76
--- NOTE | 2019-06-10 10:24 | NUR ---
AMBULATES WITH PT ASSIST. UP TO CHAIR WITH CALL LIGHT IN REACH. WILL CONT. PLAN OF CAR.
--- NOTE | 2019-06-10 13:43 | NUR ---
DRSGS CHANGED TO RIGHT LOER LEG AND BUTTOCLS W/D ORDERED. DRSG ALSO CHANGED TO CVL SITE. WILL CONT. PLAN OF CARE.
[2019-06-10 13:53] VITALS: BP 196/79
--- NOTE | 2019-06-10 15:29 | CN ---
PATIENT NAME:GLENN MARTINEZ MEDICAL RECORD: [id number] : 53 LOCATION:D.M2 D.2109 ADMIT DATE: 06/09/19 ACCOUNT: [id number] CONSULTING PHYSICIAN: ZAIDA SHIELDS MD REFERRING PHYSICIAN: ERICK SCOTT MD DATE OF CONSULTATION: 06/10/2019 IDENTIFYING DATA: The patient is 64 years old and he is admitted to the hospital on a voluntary basis. CHIEF COMPLAINT: Confusion. HISTORY OF PRESENT ILLNESS: The patient has a pretty extensive psychiatric history including coronary artery disease, congestive heart failure, COPD, elevated liver functions, hypertension, and a urinary tract infection. In addition to this, he was thrombocytopenic for reasons that are unknown. He was found walking in the [facility] and brought to the hospital. A urine drug screen showed that he was positive for marijuana. He says that he does not have recollection of what happened, but this has happened before. I cannot get a definitive answer about when, where, or how often it occurs, but he says that he has had episodes before where he has lost track of time and been confused and then comes out of it. He says he sees a neurologist for peripheral neuropathy and that is why he takes Neurontin. When asked if he could have possibly taken too much, he says no that he is very careful about his medicines. He also denies that he drinks or uses drugs except for the marijuana, which he says he uses to treat his chronic pain. For reasons unknown or uncertain to me, he is taking 40 mg of prednisone a day. The patient is fully oriented, has a euthymic mood and appropriate affect. He is logical and goal directed in answering questions except about previous episode similar to this and I am not sure if he just has no understanding recollection or he is being evasive. ASSESSMENT: Delirium, resolved. PLAN: The patient is not showing evidence of acute or direct dangerousness. I have offered him outpatient mental health treatment and he has declined saying he does not think it is necessary. I do not know what might have happened. I am suspecting that he is not being entirely truthful about his Neurontin. He insists he does not drink alcohol at all. There is no evidence of dangerousness or psychosis at this point and as mentioned he does not want any kind of psychiatric followup. At this point, I would recommend supportive care and referring him to his neurologist when he is discharged. TRANSINT:[id number] Voice Confirmation ID: [id number] DOCUMENT ID: [id number] ZAIDA SHIELDS MD at 1529 CC: [id number] DICTATION DATE: 06/10/19 1244 LINEN FOLDER: 06/10/19 1431 ADM IN [facility] [address] [place] [address]
--- NOTE | 2019-06-10 16:52 | NUR ---
OT NOTE: ASSISTED PT IN PM TO BATHROOM. BED MOB WITH MIN ASSIST; AMB WITH ENVIRONMENTAL SERVICES ASSISTANT TO TOILET; MIN ASSIST FOR STANDING BALANCE; BACK TO BED WITH MIN ASSIST; ABLE TO WASH HANDS WITH CLOTH WITH SET UP MALACHI SHAW OTR/Ibrahima
[2019-06-10 16:57] VITALS: BP 185/83
[2019-06-10 20:00] VITALS: BP 159/79
[2019-06-11] VITALS: BP 162/86
--- NOTE | 2019-06-11 01:33 | NUR ---
RESTING WITH EYES CLOSED, RESPERATIONS EVEN, NO S/S DISTRESS NOTED.
[2019-06-11 04:00] VITALS: BP 195/97
[2019-06-11 05:58] LABS: BASOPHILS 0.4 % (0-2); HEMATOCRIT 33.7 % (42.0-54.0); HEMOGLOBIN 11.2 g/dL (13.5-17.5); IMMATURE GRANULOCYTES 0.5 % (0-5); LYMPHOCYTES 25.4 % (15-50); MCHC 33.2 g/dL (31.0-37.0); MCV 90.3 fL (80.0-100.0); MONOCYTES 16.5 % (2-11); NEUTROPHILS 55.2 % (40-80); RBC 3.73 10x6/uL (4.20-6.10); RDW 18.9 % (11.5-14.5); WBC 5.6 10x3/uL (4.8-10.8)
[2019-06-11 05:59] LABS: PLATELET COUNT 59 10x3/uL (130-400)
[2019-06-11 06:13] LABS: ALBUMIN 2.8 g/dL (3.4-5.0); ALKALINE PHOSPHATASE 105 U/L (46-116); ALT (SGPT) 61 U/L (10-68); CALC OSMOLALITY 284 mosm/kg (275-300); CALCIUM 7.6 mg/dL (8.5-10.1); CARBON DIOXIDE 23.2 mmol/L (21.0-32.0); CHLORIDE - SERUM 109 mmol/L (98-107); CREATININE - SERUM 0.9 mg/dL (0.6-1.3); GLUCOSE 112 mg/dL (74-106); MAGNESIUM - SERUM 1.6 mg/dL (1.8-2.4); PROTEIN - SERUM 6.6 g/dL (6.4-8.2); SODIUM 142 mmol/L (136-145); UREA NITROGEN 15 mg/dL (7-18); eGFR NON AFRICAN AMERICAN 90 mL/min (90-120)
--- NOTE | 2019-06-11 07:47 | NUR ---
AM ROUNDS COMPLETED. INTRODUCED MYSELF TO PT PRIMARY RN FOR TODAYS SHIFT. PT IS A&O SITTING UP IN BED RESTING QUIETLY. UPON ASSESSING PT NOTED HIS L.AC WAS SWOLLEN AND RED WHERE PIV IS. ITS INFILTRATED SO I D/C WITH CATHETER TIP FULLY INTACT. NEW 20 GUAGE PIV INSERTED TO R.FA X1 STICK. FLUID RESTARTED ORDERED. PT STATES HE IS FEELING GOOD OVERALL AND HOPES TO DISCHARGE SOON HE LIVES AT HOME ALONE AND TAKES CARE OF HIS DOG. CL IN REACH, BED IN LOWEST, SIDE RAILS X2. WILL CPOC.
[2019-06-11 08:48] VITALS: BP 135/81; BP 188/99
--- NOTE | 2019-06-11 10:41 | NUR ---
PT PLACED ON CONTACT ISOLATION PER MICRO TEAM R/T URINE INFECTION. EXPLAINED TO PT AND HE VERBALIZED UNDERSTANDING. DOSE 2/2 OF MAGNESIUM REPLACED PER ELECTROLYTE PROTOCOL. ASSISTED PT TO BR AND HE VOIDED 500ML CONCENTRATED URINE. PT STATES HE IS FEELING BETTER OVERALL. PT AMBULATED WITH THERAPY AND DID WELL BUT STATES HIS L.HIP IS FEELING TIGHT, NO VISUAL ABNORMALITIES NOTED. NO CURRENT NEEDS AT THIS TIME. WILL CTM.
[2019-06-11] MEDS ORDERED: CIPRO500 MG PO (11:27)
[2019-06-11] MEDS ORDERED: HYDRALAZINE HCL25 MG PO (12:00)
--- NOTE | 2019-06-11 13:15 | NUR ---
PTS BP STILL HYPERTENSIVE. PRN CLONIDINE GIVEN ORDERED. PT SITTING UP IN BED RESTING QUIETLY STATES HE IS FEELING GREAT OVERALL AND STATES HIS SON CAN COME PICK HIM UP AROUND 3PM. CL IN REACH, BED IN LOWEST, SIDE RAILS X2. WILL DISCUSS DISCHARGE PAPERS WHEN SON ARRIVES.
[2019-06-11 13:45] VITALS: BP 205/95
--- NOTE | 2019-06-11 14:38 | NUR ---
D/C PTS R.FA PIV WITH CATHETER TIP FULLY INTACT. DISCHARGE TEACHING PROVIDED AND PAPERS SIGNED. PTS SON IS HERE FOR TRANSPORTATION. PT VERBALIZED UNDERSTANDING ON BLOOD PRESSURE DOSE CHANGE ALONG WITH NEW ANBX FOR UTI. ALL BELONGINGS COLLECTED. NO FURTHER NEEDS OR QUESTIONS. WILL CALL FOR A W/C TO ESCORT OUT.
--- NOTE | 2019-06-11 18:47 | NUR ---
OT NOTE: ADL MOB WITH CGA. PT HYGIENE TASKS WITH SBA. [phone] THANK YOU,LILI BETANCOURT
--- NOTE | 2019-06-12 08:22 | MORECARE ---
CASE MANAGEMENT DISCHARGE SUMMARY PATIENT: YAKOV MARTINEZ UNIT: [id number] ADM DATE: 06/09/19 AGE: 64 : 53 SEX: M ROOM/BED: D.2110 AUTHOR: DILEEP COPELAND PHYSICIAN: REFERRING PHYSICIAN: ERICK SCOTT MD DATE OF SERVICE: 06/12/19 Discharge Plan Patient Name: YAKOV MARTINEZ [facility] [facility] 1955 Planned Disposition: Home Anticipated Discharge Date: 06/11/19 Discharge Date: 06/11/2019 Expected LOS: 2 Initial Reviewer: [email or web address] Initial Review Date: 06/12/2019 Generated: 06/12/19 9:22 am Coverage Notice Reviewer: [email or web address] Sierra Goss Notice Issued Date-Time: 06/09/2019 16:45 Notice Type: Medicare Outpatient Observation Notice Notice Delivered To: Patient Relationship to Patient: Self Temperature Regulator Pyrometer Name: Yakov Cote Delivery Method: HAND - Hand Delivered Manisha Days: Prior Verbal Notification: Recipient Understood Notice: Recipient Signature: Yes Med Rec Note Co-signed by Attending: Coverage Notice Comment: DELGADO delivered, explained to patient, family and signed by patient. Original given to patient and one placed on the chart. Patient Name: YAKOV MARTINEZ Page [phone] at 0822 All edits/amendments must be made on the electronic document DICTATION DATE: 06/12/19821 SWIMMING POOL PLASTERER HELPER: ESAU 06/12/19821 RPT#: [id number] DC DATE:06/11/19 STATUS: DIS IN [facility] [address] [place] [address] END OF REPORT
--- NOTE | 2019-06-12 08:29 | MORECARE ---
CASE MANAGEMENT DISCHARGE SUMMARY PATIENT: YAKOV MARTINEZ UNIT: [id number] ADM DATE: 06/09/19 AGE: 64 : 54 SEX: M ROOM/BED: D.2110 AUTHOR: DILEEP COPELAND PHYSICIAN: REFERRING PHYSICIAN: ERICK SCOTT MD DATE OF SERVICE: 06/12/19 Discharge Plan Patient Name: [facility]AKOV [facility]ARTINEZ [facility] [facility] 1955 Planned Disposition: Home Anticipated Discharge Date: 06/11/19 Discharge Date: 06/11/2019 Expected LOS: 2 Initial Reviewer: [email or web address] Initial Review Date: 06/12/2019 Generated: 06/12/19 9:28 am Coverage Notice Reviewer: [email or web address] Sierra Goss Notice Issued Date-Time: 06/09/2019 16:45 Notice Type: Medicare Outpatient Observation Notice Notice Delivered To: Patient Relationship to Patient: Self Transportation Analyst Name: Yakov Cote Delivery Method: HAND - Hand Delivered Manisha Days: Prior Verbal Notification: Recipient Understood Notice: Recipient Signature: Yes Med Rec Note Co-signed by Attending: Coverage Notice Comment: DELGADO delivered, explained to patient, family and signed by patient. Original given to patient and one placed on the chart. Patient Name: YAKOV MARTINEZ Page [phone] at 0829 All edits/amendments must be made on the electronic document DICTATION DATE: 06/12/19827 DEAD MAIL CHECKER: ESAU 06/12/19827 RPT#: [id number] DC DATE:06/11/19 STATUS: DIS IN [facility] [address] [place] [address] END OF REPORT
== END 2019-06-11 15:20 | disposition home or self-care (01) ==
LOC: D.ER 13:19 → D.M2 16:46 → OBSVTIME 16:47 → D.M2 06-11 15:20
PROVIDERS: Family Medicine; ADMIT Family Medicine; ATTEND Family Medicine
DX: G92 Toxic encephalopathy (principal); N39.0 Urinary tract infection, site not specified; I11.0 Hypertensive heart disease with heart failure; I50.22 Chronic systolic (congestive) heart failure; J44.9 Chronic obstructive pulmonary disease, unspecified; I25.10 Atherosclerotic heart disease of native coronary artery without angina pectoris; K21.9 Gastro-esophageal reflux disease without esophagitis; I42.9 Cardiomyopathy, unspecified; E78.5 Hyperlipidemia, unspecified; G40.909 Epilepsy, unspecified, not intractable, without status epilepticus; D64.9 Anemia, unspecified; F41.9 Anxiety disorder, unspecified; D69.6 Thrombocytopenia, unspecified

== ENCOUNTER 2020-01-09 22:34 | Observation (INO) | payer MEDICARE ==
[~2020-01-09] VITALS: Ht 170.2 cm; Wt 72.7 kg
[~2020-01-09 22:34] MED LIST changes: +CIPRO500 MG PO; +ULTRAM50 MG PO
[2020-01-09] MEDS ORDERED: HYDROCHLOROTH12.5 M1 PO (22:40)
[2020-01-09] MEDS ORDERED: ZANAFLEX6 MG PO (22:40)
[2020-01-09] MEDS ORDERED: ATIVAN1 MG PO (23:21)
[2020-01-09 23:41] LABS: BASOPHILS 0.4 % (0-2); EOSINOPHILS 4.8 % (0-7); HEMATOCRIT 33.4 % (42.0-54.0); HEMOGLOBIN 10.9 g/dL (13.5-17.5); IMMATURE GRANULOCYTES 0.2 % (0-5); MCH 28.8 pg (26.0-34.0); MCHC 32.6 g/dL (31.0-37.0); MCV 88.1 fL (80.0-100.0); MONOCYTES 13.1 % (2-11); NEUTROPHILS 49.5 % (40-80); PLATELET COUNT 59 10x3/uL (130-400); RBC 3.79 10x6/uL (4.20-6.10); RDW 19.3 % (11.5-14.5); WBC 5.2 10x3/uL (4.8-10.8)
[2020-01-09 23:51] LABS: CALC OSMOLALITY 266 mosm/kg (275-300); CARBON DIOXIDE 24.5 mmol/L (21.0-32.0); CHLORIDE - SERUM 103 mmol/L (98-107); CREATININE - SERUM 1.1 mg/dL (0.6-1.3); GLUCOSE 97 mg/dL (74-106); POTASSIUM - SERUM 4.1 mmol/L (3.5-5.1); SODIUM 134 mmol/L (136-145); UREA NITROGEN 9 mg/dL (7-18); eGFR NON AFRICAN AMERICAN 71 mL/min (90-120)
[2020-01-10 00:11] LABS: ALKALINE PHOSPHATASE 115 U/L (30-120); ALT (SGPT) 44 U/L (10-68); CKMB 0.6 U/L (0.0-3.6); CREATINE KINASE 39 UL (21-232); MAGNESIUM - SERUM 1.8 mg/dL (1.8-2.4); PROTEIN - SERUM 6.7 g/dL (6.4-8.2); TROPONIN-I < 0.017 ng/mL (0.000-0.060)
[2020-01-10 00:22] LABS: INR 1.25 (0.85-1.17); PROTIME 15.6 SECONDS (11.6-15.0)
[2020-01-10 00:23] LABS: APTT 33.6 SECONDS (22.8-39.4)
[2020-01-10 00:27] LABS: PLATELET ESTIMATE DECREASED
[2020-01-10 00:43] LABS: BILIRUBIN NEGATIVE (NEGATIVE); GLUCOSE NEGATIVE (NEGATIVE); KETONE NEGATIVE (NEGATIVE); NITRITE NEGATIVE (NEGATIVE); UROBILINOGEN NORMAL (NORMAL)
[2020-01-10 00:44] LABS: WHITE CELLS - URINE 0-5 /hpf (NEGATIVE)
[2020-01-10 00:45] LABS: BACTERIA MANY /hpf (NEGATIVE); RED CELLS - URINE 0-5 /hpf (0-5)
[2020-01-10 02:34] VITALS: BP 139/84
[2020-01-10 03:07] VITALS: BP 204/107; Ht 170.2 cm; Wt 72.7 kg
--- NOTE | 2020-01-10 03:52 | NUR ---
LYNN MI IN REGARDS TO PATIENT'S ELEVATED BP AND REQUEST FOR SOMETHING FOR PAIN.
--- NOTE | 2020-01-10 08:19 | NUR ---
YFN CHRISTY [phone]
[2020-01-10 09:45] VITALS: BP 189/95
[2020-01-10 11:16] LABS: BASOPHILS 0.5 % (0-2); EOSINOPHILS 5.3 % (0-7); HEMATOCRIT 39.1 % (42.0-54.0); HEMOGLOBIN 12.7 g/dL (13.5-17.5); IMMATURE GRANULOCYTES 0.3 % (0-5); LYMPHOCYTES 27.8 % (15-50); MCH 28.5 pg (26.0-34.0); MCHC 32.5 g/dL (31.0-37.0); MCV 87.7 fL (80.0-100.0); MONOCYTES 14.7 % (2-11); NEUTROPHILS 51.4 % (40-80); PLATELET COUNT 65 10x3/uL (130-400); RBC 4.46 10x6/uL (4.20-6.10); RDW 19.4 % (11.5-14.5)
[2020-01-10 11:18] LABS: PLATELET ESTIMATE DECREASED
[2020-01-10 11:43] LABS: ALBUMIN 3.4 g/dL (3.4-5.0); ALKALINE PHOSPHATASE 133 U/L (30-120); ALT (SGPT) 49 U/L (10-68); BILIRUBIN - TOTAL 0.53 mg/dL (0.2-1.3); CALC OSMOLALITY 279 mosm/kg (275-300); CALCIUM 8.5 mg/dL (8.5-10.1); CARBON DIOXIDE 26.4 mmol/L (21.0-32.0); CHLORIDE - SERUM 108 mmol/L (98-107); CREATINE KINASE 36 UL (21-232); GLUCOSE 125 mg/dL (74-106); POTASSIUM - SERUM 4.2 mmol/L (3.5-5.1); PROTEIN - SERUM 7.1 g/dL (6.4-8.2); SODIUM 141 mmol/L (136-145); UREA NITROGEN 6 mg/dL (7-18); eGFR NON AFRICAN AMERICAN 80 mL/min (90-120)
[2020-01-10 12:06] LABS: CKMB 0.7 U/L (0.0-3.6); TROPONIN-I 0.018 ng/mL (0.000-0.060)
[2020-01-10 12:11] VITALS: BP 180/95
[2020-01-10] MEDS ORDERED: KEPPRA500 MG PO (12:19)
--- NOTE | 2020-01-10 15:30 | NUR ---
IV THERAPY REMOVED FROM LEFT WRIST. DISCHARGE PAPERWORK GIVEN. PT VERBALIZED UNDERSTANDING. DAUGHTER WESTLEY STATED SHE WOULD BE HERE AROUND 4. CL IN REACH. WILL WAIT ON WESTLEY'S ARRIVAL TO LEAVE.
--- NOTE | 2020-01-10 15:52 | NUR ---
MET DAUGHTER AT ER ENTRANCE
== END 2020-01-10 15:53 | disposition home or self-care (01) ==
LOC: D.ER 22:34 → D.MS 01-10 00:31 → OBSVTIME 01-10 00:31 → D.MS 01-10 00:31
PROVIDERS: Family Medicine; ADMIT Family Medicine; ATTEND Family Medicine
DX: R55 Syncope and collapse (principal); Z91.14 Patient's other noncompliance with medication regimen; W19.XXXA Unspecified fall, initial encounter; Y93.K1 Activity, walking an animal; Y92.9 Unspecified place or not applicable; I10 Essential (primary) hypertension; Z72.0 Tobacco use; G40.909 Epilepsy, unspecified, not intractable, without status epilepticus; Z86.73 Personal history of transient ischemic attack (TIA), and cerebral infarction without residual deficits; J44.9 Chronic obstructive pulmonary disease, unspecified; R41.0 Disorientation, unspecified

== ENCOUNTER → 2020-09-08 14:07 | Outpatient (CLI) | payer MEDICARE ==
[2020-07-04 08:43] VITALS: BMI 26.6
[~2020-09-08 14:07] MED LIST changes: +ATIVAN1 MG PO; +CATAPRES0.1 MG PO; +COZAAR50 MG PO; +DULERA 200 MCG8.8 GM INH; +FLORAJEN3 CAPS460 MG PO; +GAS-X125 M1 PO; +HYDROCHLOROTH12.5 M1 PO; +KEPPRA500 MG PO; +MUCINEX600 MG PO; +NEURONTIN 300300 MG PO; +OMNICEF300 MG PO; +ZANAFLEX6 MG PO; +ZITHROMAX250 MG PO
== END | disposition home or self-care (01) ==
LOC: D.LAB 14:07
PROVIDERS: ATTEND Internal Medicine Pulmonary Disease
DX: Z11.52 Encounter for screening for COVID-19 (principal)

== ENCOUNTER → 2020-09-13 07:24 | Outpatient (CLI) | payer MEDICARE ==
[2020-07-04 08:43] VITALS: BMI 26.6
== END | disposition home or self-care (01) ==
LOC: D.RT 04-05 08:00 → D.RAD 04-05 08:45 → D.RT 04-27 10:00
PROVIDERS: ATTEND Internal Medicine Pulmonary Disease
DX: J44.9 Chronic obstructive pulmonary disease, unspecified (principal); Z11.52 Encounter for screening for COVID-19

== ENCOUNTER → 2020-09-20 13:26 | Outpatient (CLI) | payer MEDICARE ==
[2020-07-04 08:43] VITALS: BMI 26.6
--- NOTE | 2020-09-21 13:38 | EC ---
PATIENT:GLENN MARTINEZ DATE OF SERVICE: 09/20/20 SEX: M MEDICAL RECORD: [id number] DATE OF : 53 LOCATION:[facility] AGE OF PATIENT: 65 ADMISSION DATE: 09/20/20 REFERRING PHYSICIAN: INTERPRETING PHYSICIAN: JAMARI BLACK MD ECHOCARDIOGRAM REPORT ECHO CHARGES 4 ECHO COMPLETE Date: 09/20/20 CLINICAL DIAGNOSIS: CAD/CARDIOMYOPATHY, ASSESS EF/MR/TR/AI/AO SCLEROSIS ECHOCARDIOGRAPHIC MEASUREMENTS (adult normal given) AC root (d.<3.7cm) 3.4 cm LV Septum d (<1.2 cm> 1.9 cm Valve Excursion 1.5 cm LV Septum (systole) 2.0 cm Left Atria (s.<4.0cm> 3.8 cm LVPW d(<1.2cm) 1.7 cm RV (d.<2.3cm) 3.6 cm LVPW (sytole) 1.9 cm LV diastole(<5.6CM) 4.9 cm MV E-F(>70mm/sec) cm LV systole 3.0 cm LVOT Diameter 1.9 cm MV exc.(>10mm) 1.6 cm Est.ejection fraction (50-75%) % DOPPLER: LVIT cm/sec A 77.0 cm/sec E 104.0 cm/sec LA cm/sec RVSP 60 mmHg LVOT 130 cm/sec AOP1/2T 650 m/s Asc. Ao 159 cm/sec RVOT 74 cm/sec RA cm/sec PA 86 cm/sec AV Gradient Peak 10.07mmHg AV Mean 4.19 mmHg AV Area 2.6 cm MV Gradient Peak 4.51 mmHg MV Mean 1.90 mmHg MV Area cm COMMENTS: Plant Manager: 2 ADITYA STEWART Patient Financial Counselor: 3 Dr. Sanon TAPE# PACS Pericardial Effusion N DATE OF SERVICE: Adequate 2D, color-flow imaging, spectral Doppler, and M-Mode. FINDINGS: LVH is present. LV internal dimensions are normal. Wall motion is normal. EF is greater than or equal to 55%. Aortic valve is sclerotic. No evidence of stenosis by Doppler interrogation. Left atrium is normal. Mitral valve shows no prolapse. Trace MR. Right side is grossly normal. Trace TR. Trace to mild AI is noted as well. ECHOCARDIOGRAM REPORT [id number] GLENN MARTINEZ TRANSINT:[id number] Voice Confirmation ID: [id number] DOCUMENT ID: [id number] JAMARI BLACK MD at 1338 CC: [id number] DICTATION DATE: 09/20/20 1649 PROCUREMENT TECHNICIAN: 09/20/20 [id number] DEP CLI 09/20/20 [place] [id number]
== END | disposition home or self-care (01) ==
LOC: D.HCCECHO 13:26
PROVIDERS: ATTEND Internal Medicine Interventional Cardiology
DX: I25.10 Atherosclerotic heart disease of native coronary artery without angina pectoris (principal)